=== PATIENT | female | born 1980 | race Caucasian/White ===

== ENCOUNTER 2020-04-09 06:08 | Emergency (ER) | payer MEDICAID, SELFPAY ==
[2020-04-09] VITALS (10 sets, daily range): BP systolic 92–107; BP diastolic 62–73; PULSE 105–108; RESP 16–26; TEMP 36.7; O2SAT 95–98; BMI 34.2
--- NOTE | 2020-04-09 06:16 | W.ED.GENADLT ---
HPI - General Adult General: Chief complaint: Chest Pain Stated complaint: chest pain Time Seen by Provider: 04/09/20 06:16 History of Present Illness: HPI narrative: 40-year-old female presents emergency room with complaint of chest pain. She arrives by ambulance. Patient has a history of nonischemic cardiomyopathy cardiomyopathy with a depressed ejection fraction to 25 to 30% she had an ICD placed she is also has a history of nonsustained V. tach with QT prolongation. She usually sees Dr. Del Real. This morning she woke up around 4:56 AM with chest pressure and pain she gave herself an albuterol treatment because she was feeling very short of breath. She states she had no relief after the albuterol treatment she also took some aspirin. When she seen in the emergency room she had a rapid shallow breathing that increases her chest pain with deep inspiration. She denies fever sweats or chills she is not had any increased cough or productive cough. She does state pain is better with shallow breaths. She was seen yesterday in [place] for near syncopal episode and states she had a chest x-ray and CT of her head both of which she was told were normal. She denies any other pain she is not had any abdominal pain no bowel or bladder issues. Associated symptoms: Reports chest pain and dyspnea; Deny malaise, nausea, rash or vomiting Review of Systems Const: Denies: fever(s), chills, body aches, change in appetite, fatigue or malaise ENMT: Denies: throat pain, ear or mastoid pain, nasal discharge or nasal congestion Card: Reports: chest pain and dyspnea on exertion; Denies: edema or orthopnea Resp: Reports: dyspnea and pain on inspiration; Denies: productive cough or non-productive cough GI: Denies: abdominal pain, nausea, vomiting, hematemesis, coffee ground emesis, diarrhea, constipation, bloating, hematochezia or melena : Denies: flank pain, difficulty voiding, dysuria, urinary frequency or urinary urgency Skin/Breast: Denies: rash or pruritus PFS ED PFSH: Medical History (Updated 04/09/20 @ 09:26 by Atul Crockett DO) Asthma Cardiomyopathy Heart failure Pacemaker cardiomyopathy Surgical History (Updated 04/09/20 @ 06:43 by Atul Crockett DO) H/O section S/P cholecystectomy Family History Other CAD (coronary artery disease) Diabetes Social History Smoking and tobacco status: current every day smoker cigarettes Packs smoked per day: 0.5 Alcohol intake: current Alcohol intake frequency: holidays/special occasions only Physical Exam Const: COMMON NORMALS: no acute distress GENERAL APPEARANCE: cooperative and comfortable ORIENTATION/CONSCIOUSNESS: Yes awake, Yes oriented to person, Yes oriented to place and Yes oriented to time HENMT: COMMON NORMALS: normocephalic, atraumatic, hearing grossly normal bilaterally, external ears normal, EAC's normal, TM's normal bilaterally, Normal nasal mucous membranes and turbinates present, moist oral mucous membranes and oropharynx normal HEAD & SCALP: normocephalic and atraumatic NOSE: Normal nasal mucous membranes and turbinates present EXTERNAL EAR: Yes external ears normal EXTERNAL AUDITORY CANAL: EAC's normal TYMPANIC MEMBRANE: TM's normal bilaterally Eye: COMMON NORMALS: Equal, round and reactive pupils present, EOMs intact bilaterally, conjunctivae normal and no scleral icterus CONJUNCTIVA: Yes conjunctivae normal PUPIL: Yes Equal, round and reactive pupils present Neck/C-Spine: COMMON NORMALS: full ROM, no lymphadenopathy, supple and no JVD Lymph: LYMPHATIC: no lymphadenopathy noted and no lymphedema noted Resp: COMMON NORMALS: normal respiratory effort, No retractions, No use of accessory muscles and clear to auscultation bilaterally AUSCULTATION: clear to auscultation bilaterally Cardio: COMMON NORMALS: no JVD, regular rate, regular rhythm and No murmurs present (Cardio) RATE: regular rate RHYTHM: regular rhythm GI: COMMON NORMALS: Soft to palpation and No hepatosplenomegaly present AUSCULTATION: Yes normoactive bowel sounds PALPATION: Yes Soft to palpation, No Tenderness to palpation present (GI), No Guarding due to palpation present (GI) and Yes No hepatosplenomegaly present Extremity: COMMON NORMALS: normal to inspection, capillary refill normal, no clubbing, cyanosis or edema, no calf tenderness and no pedal edema Neuro: SENSORIUM/ORIENTATION: Yes oriented to person, Yes oriented to place and Yes oriented to time Skin: COMMON NORMALS: no rashes or lesions noted GENERAL SKIN EXAM: no rashes or lesions noted Course Vital Signs: Vital signs: Vital Signs Temperature 98.0 F 04/09/20 06:10 Pulse Rate 105 H 04/09/20 09:40 Respiratory Rate 17 04/09/20 09:40 Blood Pressure 107/73 04/09/20 09:40 Pulse Oximetry 98 04/09/20 09:40 MDM - General Adult MDM Narrative: Medical decision making narrative: Chest x-ray shows pneumonia her sats are good we will go ahead and treat with outpatient antibiotics return if has any worsening symptoms. Lab Data: Labs: Lab Results 04/09/20 04/09/20 04/09/20 Range/Units 06:12 06:12 06:12 WBC 12.0 H (4.0-10.0) 10^3/ uL RBC 4.74 (4.1-5.3) 10^6/u L Hgb 14.0 (11.5-15.3) g/dL Hct 43.5 (37.0-47.0) % MCV 91.8 (81-99) fL MCH 29.5 (28.0-34.0) pg MCHC 32.2 (30.0-36.0) g/dL RDW 13.6 (12.1-15.1) % Plt Count 314 (130-400) 10^3/c mm MPV 9.9 (7.4-10.4) fL Neut % (Auto) 61.6 % Lymph % (Auto) 31.6 % [place] % (Auto) 5.1 % Eos % (Auto) 1.1 % Baso % (Auto) 0.3 % Neut # (Auto) 7.4 (1.8-7.7) 10^3/u L Lymph # (Auto) 3.8 (0.8-4.8) 10^3/u L [place] # (Auto) 0.6 (0.2-0.9) 10^3/u L Eos # (Auto) 0.1 (0.0-0.8) 10^3/u L Baso # (Auto) 0.0 (0.0-0.1) 10^3/u L Nucleated RBC % (a uto) 0 % Nucleated RBCs # 0.0 /100WBC Specimen Type Sample Site ABG pH (7.35-7.45) ABG pCO2 (35-45) mmHg ABG pO2 (80.0-100.0) mmH g ABG HCO3 (22-26) mmol/L ABG Base Excess (-2.0-2.0) mmol/ L Kevin Test Hematocrit (37-47) % O2 Delivery Device Family Program Specialist ID Sodium 137 (136-145) mmol/L Potassium 4.1 (3.5-5.1) mmol/L Chloride 99 (98-107) mmol/L Carbon Dioxide 22 (22-29) mmol/L Anion Gap 20.1 H (5-19) BUN 10 (6-20) mg/dL Creatinine 0.5 (0.5-0.9) mg/dL GFR Calculation 136.0 H (90-130) mL/min Glucose 116 H (65-115) mg/dL Calculated Osmolal ity 281 L (285-295) mOsm/k g Lactate (0.5-2.2) mmol/L Calcium 9.9 (8.5-10.5) mg/dL Total Bilirubin 0.2 (0.15-1.2) mg/dL AST 20 (0-32) U/L ALT 18 (0-33) U/L Alkaline Phosphata se 94 (35-105) IU/L Troponin T Baselin e 9 (0-10) ng/mL Troponin T 120 Min [place] (0-10) ng/mL Delta Troponin T (0-10) ABS# C-Reactive Protein 5.1 H (0.0-4.9) mg/L NT-Pro-B Natriuret Pep 578 H (0-125) pg/mL Total Protein 7.4 (6.6-8.7) g/dL Albumin 4.1 (3.5-5.2) g/dL Globulin 3.3 (1.3-4.6) g/dL Lipase 39 (13-60) U/L Urine Color (Yellow) Urine Appearance (CLEAR) Urine pH (5-7) Ur Specific Gravit y (1.005-1.030) Urine Protein (Negative) Urine Glucose (UA) (Normal) Urine Ketones (Negative) Urine Blood (Negative) Urine Nitrate (Negative) Urine Bilirubin (NEGATIVE) Urine Urobilinogen (Negative) mg/dL Ur Leukocyte Roseann ase (Negative) 05/15/20 05/15/20 05/15/20 Range/Units 06:40 06:55 08:24 WBC (4.0-10.0) 10^3/ uL RBC (4.1-5.3) 10^6/u L Hgb (11.5-15.3) g/dL Hct (37.0-47.0) % MCV (81-99) fL MCH (28.0-34.0) pg MCHC (30.0-36.0) g/dL RDW (12.1-15.1) % Plt Count (130-400) 10^3/c mm MPV (7.4-10.4) fL Neut % (Auto) % Lymph % (Auto) % [place] % (Auto) % Eos % (Auto) % Baso % (Auto) % Neut # (Auto) (1.8-7.7) 10^3/u L Lymph # (Auto) (0.8-4.8) 10^3/u L [place] # (Auto) (0.2-0.9) 10^3/u L Eos # (Auto) (0.0-0.8) 10^3/u L Baso # (Auto) (0.0-0.1) 10^3/u L Nucleated RBC % (a uto) % Nucleated RBCs # /100WBC Specimen Type Arterial Sample Site Brachial, right ABG pH 7.40 (7.35-7.45) ABG pCO2 35.2 (35-45) mmHg ABG pO2 78.5 L (80.0-100.0) mmH g ABG HCO3 21.5 L (22-26) mmol/L ABG Base Excess -2.8 L (-2.0-2.0) mmol/ L Kevin Test N/a Hematocrit 38.4 (37-47) % O2 Delivery Device Room air Family Program Specialist ID [email or web address] Sodium (136-145) mmol/L Potassium (3.5-5.1) mmol/L Chloride (98-107) mmol/L Carbon Dioxide (22-29) mmol/L Anion Gap (5-19) BUN (6-20) mg/dL Creatinine (0.5-0.9) mg/dL GFR Calculation (90-130) mL/min Glucose (65-115) mg/dL Calculated Osmolal ity (285-295) mOsm/k g Lactate 2.5 H (0.5-2.2) mmol/L Calcium (8.5-10.5) mg/dL Total Bilirubin (0.15-1.2) mg/dL AST (0-32) U/L ALT (0-33) U/L Alkaline Phosphata se (35-105) IU/L Troponin T Baselin e (0-10) ng/mL Troponin T 120 Min [place] 6.65 (0-10) ng/mL Delta Troponin T -2.35 L (0-10) ABS# C-Reactive Protein (0.0-4.9) mg/L NT-Pro-B Natriuret Pep (0-125) pg/mL Total Protein (6.6-8.7) g/dL Albumin (3.5-5.2) g/dL Globulin (1.3-4.6) g/dL Lipase (13-60) U/L Urine Color (Yellow) Urine Appearance (CLEAR) Urine pH (5-7) Ur Specific Gravit y (1.005-1.030) Urine Protein (Negative) Urine Glucose (UA) (Normal) Urine Ketones (Negative) Urine Blood (Negative) Urine Nitrate (Negative) Urine Bilirubin (NEGATIVE) Urine Urobilinogen (Negative) mg/dL Ur Leukocyte Roseann ase (Negative) 04/09/20 Range/Units 08:40 WBC (4.0-10.0) 10^3/ uL RBC (4.1-5.3) 10^6/u L Hgb (11.5-15.3) g/dL Hct (37.0-47.0) % MCV (81-99) fL MCH (28.0-34.0) pg MCHC (30.0-36.0) g/dL RDW (12.1-15.1) % Plt Count (130-400) 10^3/c mm MPV (7.4-10.4) fL Neut % (Auto) % Lymph % (Auto) % [place] % (Auto) % Eos % (Auto) % Baso % (Auto) % Neut # (Auto) (1.8-7.7) 10^3/u L Lymph # (Auto) (0.8-4.8) 10^3/u L [place] # (Auto) (0.2-0.9) 10^3/u L Eos # (Auto) (0.0-0.8) 10^3/u L Baso # (Auto) (0.0-0.1) 10^3/u L Nucleated RBC % (a uto) % Nucleated RBCs # /100WBC Specimen Type Sample Site ABG pH (7.35-7.45) ABG pCO2 (35-45) mmHg ABG pO2 (80.0-100.0) mmH g ABG HCO3 (22-26) mmol/L ABG Base Excess (-2.0-2.0) mmol/ L Kevin Test Hematocrit (37-47) % O2 Delivery Device Family Program Specialist ID Sodium (136-145) mmol/L Potassium (3.5-5.1) mmol/L Chloride (98-107) mmol/L Carbon Dioxide (22-29) mmol/L Anion Gap (5-19) BUN (6-20) mg/dL Creatinine (0.5-0.9) mg/dL GFR Calculation (90-130) mL/min Glucose (65-115) mg/dL Calculated Osmolal ity (285-295) mOsm/k g Lactate (0.5-2.2) mmol/L Calcium (8.5-10.5) mg/dL Total Bilirubin (0.15-1.2) mg/dL AST (0-32) U/L ALT (0-33) U/L Alkaline Phosphata se (35-105) IU/L Troponin T Baselin e (0-10) ng/mL Troponin T 120 Min [place] (0-10) ng/mL Delta Troponin T (0-10) ABS# C-Reactive Protein (0.0-4.9) mg/L NT-Pro-B Natriuret Pep (0-125) pg/mL Total Protein (6.6-8.7) g/dL Albumin (3.5-5.2) g/dL Globulin (1.3-4.6) g/dL Lipase (13-60) U/L Urine Color Yellow (Yellow) Urine Appearance Clear (CLEAR) Urine pH 5 (5-7) Ur Specific Gravit y 1.020 (1.005-1.030) Urine Protein Neg (Negative) Urine Glucose (UA) Norm (Normal) Urine Ketones Negative (Negative) Urine Blood Neg (Negative) Urine Nitrate Negative (Negative) Urine Bilirubin Neg (NEGATIVE) Urine Urobilinogen Norm (Negative) mg/dL Ur Leukocyte Roseann ase Negative (Negative) Discharge Plan Discharge Patient Disposition: Home, Self-Care Clinical Impression: Pneumonia Condition: Stable Prescriptions: New Levaquin 750 mg tablet 750 mg PO DAILY 10 Days Qty: 10 RF: 0 hydrocodone-acetaminophen 5-325 mg tablet 1 tab PO Q6H PRN (Reason: pain) Qty: 10 RF: 0 No Action furosemide 40 mg tablet 40 mg PO DAILY RF: 0 cholecalciferol (vitamin D3) PO RF: 0 potassium gluconate 595 mg (99 mg) tablet 1,785 mg PO DAILY RF: 0 metoprolol succinate 25 mg tablet extended release 24 hr 12.5 mg PO DAILY Qty: 15 RF: 3 furosemide 40 mg tablet 40 mg PO BID Qty: 60 RF: 3 potassium chloride 20 mEq tablet extended release 20 meq PO DAILY Qty: 30 RF: 3 Discharge Orders: Discharge Order (Routine); Ordered 04/09/20 Ordered By: Atul Crockett Discharge Diet: Advance as tolerated Discharge Activity: Increase activity as tolerated Activity Restrictions/Additional Instructions: Follow-up with your doctor within 1 week. Return to the emergency room if worsens. Discharge Date/Time: 04/09/20 09:40 Coding Level of Care Code ED [employer] [facility] Exam Comprehensive
--- NOTE | 2020-04-09 06:17 | PC.NURSE ---
EKG done at 0615 and shown to ER doctor
--- NOTE | 2020-04-09 06:45 | XR_ITS ---
WS: [id number] PORTABLE CHEST HISTORY: dyspnea/cough COMPARISON: None available. Single lead LEFT subclavian pacer. Focal opacification at the RIGHT lung base. Otherwise lungs are clear. No pleural effusion or pneumot horax. Cardiac size: Normal. Mediastinum/Aorta: Mild fullness at the RIGHT hilum. Aorta is negative. No osseous abnormality seen. XR/XR chest 1V portable [id number] IMPRESSION: 1. RIGHT lower lobe opacifications likely pneumonia. Recommend follow-up to re solution. Chest radiograph recommended in 2-3 weeks. 2. Mild fullness at the RIGHT hilum may be postinflammatory and associated wit h the RIGHT lower lobe pneumonia.
--- NOTE | 2020-04-09 06:45 | ECG_ITS ---
Measurements Intervals [place] Rate: 105 P: 50 [place]: 177 QRS: 34 QRSD: 105 T: 79 QT: 379 QTc: 501 SINUS TACHYCARDIA POSSIBLE LEFT VENTRICULAR HYPERTROPHY [VOLTAGE CRITERIA PLUS LAE OR QRS WIDENING] NONSPECIFIC T-WAVE ABNORMALITY No previous ECG available for comparison Electronically Signed On 04-09-2020 13:05:42 CDT by Liam Baker M.D. [id number]
[2020-04-09 06:51] LABS: ABG PCO2 35.2 mmHg (35-45); Arterial Blood Gas Hematocrit 38.4 % (37-47); Base Excess ABG -2.8 mmol/L (-2.0-2.0); Blood Gas Sample Site Brachial, right; Blood Gas Sample Type Arterial; HCO3 ABG 21.5 mmol/L (22-26); Oxygen Device ROOM AIR; PO2 ABG 78.5 mmHg (80.0-100.0)
[2020-04-09 07:04] LABS: Basophils % 0.3 %; Eosinophils # 0.1 10^3/uL (0.0-0.8); Eosinophils % 1.1 %; Hematocrit 43.5 % (37.0-47.0); Lymphocytes # 3.8 10^3/uL (0.8-4.8); Lymphocytes % 31.6 %; Mean Corpuscular HGB Conc 32.2 g/dL (30.0-36.0); Mean Corpuscular Hemoglobin 29.5 pg (28.0-34.0); Mean Corpuscular Volume 91.8 fL (81-99); Mean Platelet Volume 9.9 fL (7.4-10.4); Monocytes # 0.6 10^3/uL (0.2-0.9); Monocytes % 5.1 %; Neutrophils # 7.4 10^3/uL (1.8-7.7); Neutrophils % 61.6 %; Nucleated Red Blood Cells % 0 %; Platelet Count 314 10^3/cmm (130-400); Red Blood Count 4.74 10^6/uL (4.1-5.3); Red Cell Distribution Width 13.6 % (12.1-15.1)
[2020-04-09 07:14] LABS: Lactate (Lactic Acid level) 2.5 mmol/L (0.5-2.2)
[2020-04-09 07:18] LABS: Troponin(5th) Baseline 9 ng/mL (0-10)
[2020-04-09 07:26] LABS: Alanine Aminotransferase 18 U/L (0-33); Albumin Level 4.1 g/dL (3.5-5.2); Alkaline Phosphatase 94 IU/L (35-105); Anion Gap 20.1 (5-19); Aspartate Amino Transferase 20 U/L (0-32); Blood Urea Nitrogen 10 mg/dL (6-20); C Reactive Protein 5.1 mg/L (0.0-4.9); Calcium 9.9 mg/dL (8.5-10.5); Carbon Dioxide 22 mmol/L (22-29); Chloride 99 mmol/L (98-107); Globulin 3.3 g/dL (1.3-4.6); Glucose 116 mg/dL (65-115); Lipase 39 U/L (13-60); NT Pro B Type Natriuretic Pept 578 pg/mL (0-125); Osmolality Calculated 281 mOsm/kg (285-295); Potassium 4.1 mmol/L (3.5-5.1); Sodium 137 mmol/L (136-145); Total Bilirubin 0.2 mg/dL (0.15-1.2); Total Protein 7.4 g/dL (6.6-8.7)
[2020-04-09] MEDS: ondansetron 2 mg/ML SDV 2 mL 4 MG IVP (08:07)
[2020-04-09] MEDS: morphine 4 mg/mL SDV 1 mL IVP (08:07)
[2020-04-09] MEDS: FUROsemide 10 mg/mL SDV 4mL 20 MG IVP (08:07)
[2020-04-09 08:49] LABS: Add Urine Microscopic? NO
[2020-04-09 08:55] LABS: Bilirubin Urine Neg (NEGATIVE); Blood Urine Neg (Negative); Glucose Urine UA Norm (Normal); Ketones Urine Negative (Negative); Leukocyte Esterase Urine Negative (Negative); Nitrate Urine Negative (Negative); Protein Urine Neg (Negative); Urine Appearance Clear (CLEAR); Urine Color Yellow (Yellow); Urobilinogen Urine Norm (Negative); pH Urine 5 (5-7)
[2020-04-09 08:56] LABS: Troponin 5 2HR 6.65 ng/mL (0-10)
[2020-04-09 09:01] LABS: Troponin 5 2HR Delta -2.35 ABS# (0-10)
== END 2020-04-09 09:40 | disposition home or self-care (01) ==
PROVIDERS: Emergency Provider Family Medicine
DX: J18.9 Pneumonia, unspecified organism (principal); Z95.0 Presence of cardiac pacemaker; F17.210 Nicotine dependence, cigarettes, uncomplicated
CPT/HCPCS: 12345; 36415; 36600; 71045; 80053; 81003; 82803; 83605; 83690; 83880; 84484; 85025; 86140; 93005; 96374; 96375; 99283; A9270; J1940; J2270; J2405

== ENCOUNTER 2020-04-10 08:32 | Inpatient (IN) | payer MEDICAID, SELFPAY ==
[2020-04-10] VITALS (18 sets, daily range): BP systolic 82–115; BP diastolic 64–88; PULSE 106–117; RESP 14–29; TEMP 36.5–37; O2SAT 88–99; BMI 34.2
--- NOTE | 2020-04-10 08:44 | CTR_ITS ---
PROCEDURE INFORMATION: Exam: CT Angiography Chest With Contrast Exam date and time: 04/10/2020 9:02 AM Age: 40 years old Clinical indication: Chest pain; Prior surgery; Surgery date: 6+ months; Surgery type: Pacemaker, gb; Additional info: Dyspnea chest pain TECHNIQUE: Imaging protocol: Computed tomographic angiography of the chest with intravenous contrast. 3D rendering: MIP and/or 3D reconstructed images were created by the technologist. Radiation optimization: All CT scans at this facility use at least one of these dose optimization techniques: automated exposure control; mA and/or kV adjustment per patient size (includes targeted exams where dose is matched to clinical indication); or iterative reconstruction. Contrast material: OMNI 350; Contrast volume: 95 ml; Contrast route: LT AC; COMPARISON: NM XR chest 1V portable [id number] 04/09/2020 7:11 AM RADIATION DOSE METRICS: Total DLP: 598.02 mGy-cm FINDINGS: Tubes, catheters and devices: AICD with associated beam hardening artifact. Pulmonary arteries: No pulmonary embolus in the opacified pulmonary arteries. Enlargement of the main pulmonary artery, measuring 5.1 cm in transverse dimension. Aorta: Normal caliber of the unopacified thoracic aorta. Lungs: Interstitial prominence. Bilateral airspace disease, disproportionately localized in the right middle lobe, lingula, left lower lobe. Pleural space: No significant pleural effusion. Heart: Cardiomegaly. Lymph nodes: Mildly enlarged lymph nodes including 2.3 x 1.4 by 1.3 cm AP window, 2.4 by 1.8 by 1.8 cm left para-aortic, and 2.1 by 1.9 by 1.0 cm right hilar lymph nodes. Upper abdomen: Fatty infiltration of the liver. Enlarged spleen measuring 12.4 cm in length. Bones/joints: Mild scoliosis and marginal osteophytes. CT/CT angio chest PE protcl [id number] IMPRESSION: 1. No pulmonary embolus in the opacified pulmonary arteries. Enlargement of the main pulmonary artery, measuring 5.1 cm in transverse dimension. 2. Interstitial prominence and bilateral airspace disease. 3. Additional findings as described above. Radiation Dose CTDIVOL = (mGy): DLP = 598.02 (mGy-cm)
--- NOTE | 2020-04-10 08:45 | ECG_ITS ---
Measurements Intervals [place] Rate: 115 P: [place]: 0 QRS: 42 QRSD: 102 T: 79 QT: 347 QTc: 482 SINUS TACHYCARDIA POSSIBLE LEFT VENTRICULAR HYPERTROPHY NONSPECIFIC T-WAVE ABNORMALITY Compared to ECG 04/09/2020 06:22:07 T-wave abnormality still present Electronically Signed On 04-11-2020 9:37:59 CDT by Deena Brown M.D. [id number]
--- NOTE | 2020-04-10 08:51 | W.ED.CHESTPA ---
HPI - Chest Pain General: Chief Complaint: Chest Pain Stated Complaint: cp/sob Time Seen by Provider: 04/10/20 08:43 History of Present Illness: HPI narrative: 40-year-old female who was seen yesterday with pleuritic chest pain was found to have a pneumonia was started on Levaquin.. She has a history of prolonged QT and has an ICD. She returns today with continued chest discomfort worse with inspiration she is now in atrial tachycardia/flutter with a heart rate of 113. She was given ceftriaxone and Zithromax yesterday and started on Levaquin she has taken 1 dose of Levaquin. Pain is still worse with deep inspiration better with shallow inspirations she did not get much relief from the Carrie. MD complaint: chest pain Pertinent past history: other (Prolonged QT) Onset (ago): day(s) Timing of current episode: episodic, constant and still present Onset: during rest Pain radiation: none Severity: severe Quality: sharp Relieving factors: remaining still Exacerbating factors: inspiration Context: recent illness Associated symptoms: Reports diaphoresis and dyspnea; Deny abdominal pain, nausea or vomiting Review of Systems Const: Reports: diaphoresis ENMT: Denies: throat pain, ear or mastoid pain, nasal discharge or nasal congestion Card: Denies: chest pain, edema, dyspnea on exertion or orthopnea Resp: Reports: dyspnea GI: Denies: abdominal pain, nausea, vomiting, hematemesis, coffee ground emesis, diarrhea, constipation, bloating, hematochezia or melena : Denies: flank pain, difficulty voiding, dysuria, urinary frequency or urinary urgency Skin/Breast: Denies: rash or pruritus PFSH ED PFSH: Medical History Abnormal nuclear stress test Asthma Atypical chest pain Cardiomyopathy Heart failure Intermittent atrial fibrillation Nonsustained ventricular tachycardia Pacemaker cardiomyopathy Surgical History AICD (automatic cardioverter/defibrillator) present H/O section S/P cholecystectomy Family History Other CAD (coronary artery disease) Diabetes Social History Smoking and tobacco status: current every day smoker cigarettes Packs smoked per day: 0.5 Alcohol intake: current Alcohol intake frequency: holidays/special occasions only Household members: spouse and children Housing: House Marital status: Physical Exam Const: COMMON NORMALS: no acute distress GENERAL APPEARANCE: cooperative and comfortable ORIENTATION/CONSCIOUSNESS: Yes awake, Yes oriented to person, Yes oriented to place and Yes oriented to time HENMT: COMMON NORMALS: normocephalic, atraumatic, hearing grossly normal bilaterally, external ears normal, EAC's normal, TM's normal bilaterally, Normal nasal mucous membranes and turbinates present, moist oral mucous membranes and oropharynx normal HEAD & SCALP: normocephalic and atraumatic NOSE: Normal nasal mucous membranes and turbinates present EXTERNAL EAR: Yes external ears normal EXTERNAL AUDITORY CANAL: EAC's normal TYMPANIC MEMBRANE: TM's normal bilaterally Eye: COMMON NORMALS: Equal, round and reactive pupils present, EOMs intact bilaterally, conjunctivae normal and no scleral icterus CONJUNCTIVA: Yes conjunctivae normal PUPIL: Yes Equal, round and reactive pupils present Neck/C-Spine: COMMON NORMALS: full ROM, no lymphadenopathy, supple and no JVD Lymph: LYMPHATIC: no lymphadenopathy noted and no lymphedema noted Resp: COMMON NORMALS: normal respiratory effort, No retractions, No use of accessory muscles and clear to auscultation bilaterally AUSCULTATION: clear to auscultation bilaterally Cardio: COMMON NORMALS: no JVD, regular rate, regular rhythm and No murmurs present (Cardio) RATE: regular rate RHYTHM: regular rhythm GI: COMMON NORMALS: Soft to palpation and No hepatosplenomegaly present AUSCULTATION: Yes normoactive bowel sounds PALPATION: Yes Soft to palpation, No Tenderness to palpation present (GI), No Guarding due to palpation present (GI) and Yes No hepatosplenomegaly present Extremity: COMMON NORMALS: normal to inspection, capillary refill normal, no clubbing, cyanosis or edema, no calf tenderness and no pedal edema Neuro: SENSORIUM/ORIENTATION: Yes oriented to person, Yes oriented to place and Yes oriented to time Skin: COMMON NORMALS: no rashes or lesions noted GENERAL SKIN EXAM: no rashes or lesions noted Course Vital Signs: Vital signs: Vital Signs Temperature 98.7 F 04/12/20 18:37 Pulse Rate 101 H 04/12/20 18:37 Respiratory Rate 21 H 04/12/20 18:37 Blood Pressure 117/74 04/12/20 18:37 Pulse Oximetry 92 04/12/20 18:37 MDM - Chest Pain MDM Narrative: Medical decision making narrative: Patient does have pneumonia not previously seen on chest x-ray will go ahead and admit started on IV antibiotics. She has significant pleuritic chest pain there is no evidence of empyema on her CT discussed with the hospitalist orders are written. Lab Data: Labs: Lab Results 04/10/20 04/10/20 04/10/20 Range/Units 08:58 08:58 08:58 WBC 10.7 H (4.0-10.0) 10^3/ uL RBC 4.11 (4.1-5.3) 10^6/u L Hgb 12.1 (11.5-15.3) g/dL Hct 38.1 (37.0-47.0) % MCV 92.7 (81-99) fL MCH 29.4 (28.0-34.0) pg MCHC 31.8 (30.0-36.0) g/dL RDW 13.6 (12.1-15.1) % Plt Count 243 (130-400) 10^3/c mm MPV 9.7 (7.4-10.4) fL Neut % (Auto) 73.8 % Lymph % (Auto) 16.6 % [place] % (Auto) 8.2 % Eos % (Auto) 0.6 % Baso % (Auto) 0.4 % Neut # (Auto) 7.9 H (1.8-7.7) 10^3/u L Lymph # (Auto) 1.8 (0.8-4.8) 10^3/u L [place] # (Auto) 0.9 (0.2-0.9) 10^3/u L Eos # (Auto) 0.1 (0.0-0.8) 10^3/u L Baso # (Auto) 0.0 (0.0-0.1) 10^3/u L Nucleated RBC % (a uto) 0 % Nucleated RBCs # 0.0 /100WBC Sodium 134 L (136-145) mmol/L Potassium 4.4 (3.5-5.1) mmol/L Chloride 99 (98-107) mmol/L Carbon Dioxide 22 (22-29) mmol/L Anion Gap 17.4 (5-19) BUN 8 (6-20) mg/dL Creatinine 0.5 (0.5-0.9) mg/dL GFR Calculation 136.0 H (90-130) mL/min Glucose 140 H (65-115) mg/dL Estimat Average Gl ucose Hemoglobin A1c (4.0-6.0) % Calculated Osmolal ity 276 L (285-295) mOsm/k g Calcium 9.6 (8.5-10.5) mg/dL Total Bilirubin 1.3 H (0.15-1.2) mg/dL AST 74 H (0-32) U/L ALT 116 H (0-33) U/L Alkaline Phosphata se 114 H (35-105) IU/L Troponin T Baselin e 8 (0-10) ng/mL Troponin T 120 Min [place] (0-10) ng/mL Delta Troponin T (0-10) ABS# Total Protein 7.7 (6.6-8.7) g/dL Albumin 3.9 (3.5-5.2) g/dL Globulin 3.8 (1.3-4.6) g/dL 04/10/20 04/10/20 Range/Units 08:58 11:03 WBC (4.0-10.0) 10^3/ uL RBC (4.1-5.3) 10^6/u L Hgb (11.5-15.3) g/dL Hct (37.0-47.0) % MCV (81-99) fL MCH (28.0-34.0) pg MCHC (30.0-36.0) g/dL RDW (12.1-15.1) % Plt Count (130-400) 10^3/c mm MPV (7.4-10.4) fL Neut % (Auto) % Lymph % (Auto) % [place] % (Auto) % Eos % (Auto) % Baso % (Auto) % Neut # (Auto) (1.8-7.7) 10^3/u L Lymph # (Auto) (0.8-4.8) 10^3/u L [place] # (Auto) (0.2-0.9) 10^3/u L Eos # (Auto) (0.0-0.8) 10^3/u L Baso # (Auto) (0.0-0.1) 10^3/u L Nucleated RBC % (a uto) % Nucleated RBCs # /100WBC Sodium (136-145) mmol/L Potassium (3.5-5.1) mmol/L Chloride (98-107) mmol/L Carbon Dioxide (22-29) mmol/L Anion Gap (5-19) BUN (6-20) mg/dL Creatinine (0.5-0.9) mg/dL GFR Calculation (90-130) mL/min Glucose (65-115) mg/dL Estimat Average Gl ucose 143 Hemoglobin A1c 6.6 H (4.0-6.0) % Calculated Osmolal ity (285-295) mOsm/k g Calcium (8.5-10.5) mg/dL Total Bilirubin (0.15-1.2) mg/dL AST (0-32) U/L ALT (0-33) U/L Alkaline Phosphata se (35-105) IU/L Troponin T Baselin e (0-10) ng/mL Troponin T 120 Min [place] 7.14 (0-10) ng/mL Delta Troponin T -0.86 L (0-10) ABS# Total Protein (6.6-8.7) g/dL Albumin (3.5-5.2) g/dL Globulin (1.3-4.6) g/dL Discharge Plan Discharge Patient Disposition: Admitted As Inpatient Admit Provider: Emiliano Parisi Clinical Impression: Pneumonia, cardiomyopathy, Systolic and diastolic CHF, acute on chronic, AICD (automatic cardioverter/defibrillator) present, Type 2 diabetes mellitus Condition: Stable Discharge Orders: Discharge Order (Routine); Ordered 04/12/20 Ordered By: Emiliano Parisi Referrals: Ag Alva [Referring] - 04/21/20 9:40 am (Follow-up) Gilbert Lehman MD [Physician] - 2 weeks Discharge Diet: Cardiac Discharge Activity: Resume usual activity Patient Instructions: Metoprolol (By mouth), Lisinopril (By mouth), Metformin (By mouth), Atorvastatin (By mouth), Mirtazapine (By mouth), Magnesium (By mouth), Apixaban (By mouth) Additional Instructions: Multiple new medications have been started for you including lisinopril, Lopressor, Eliquis, statin, metformin. Please follow-up with Dr. Lehman in 2 weeks. Appointment has been made for you with a new primary care provider. Please follow-up with a primary care provider. As discussed it is very important that you maintain your lifestyle modification and try to quit smoking as soon as possible. Interventions: ED Discharge Assessment Last Done: 04/10/20 11:59 ED Charges Last Done: 04/10/20 11:59 Discharge Date/Time: 04/10/20 12:44 Coding Level of Care Code ED [place] for Chg Fwd Exam Comprehensive
[2020-04-10] MEDS: morphine 4 mg/mL SDV 1 mL IVP (09:02)
[2020-04-10] MEDS: ondansetron 2 mg/ML SDV 2 mL 4 MG IVP ×2 (09:02→13:51)
[2020-04-10] MEDS: sodium chloride 0.9% 1,000 ML 999 ML IV (09:04)
[2020-04-10 09:08] LABS: Basophils % 0.4 %; Eosinophils # 0.1 10^3/uL (0.0-0.8); Eosinophils % 0.6 %; Hematocrit 38.1 % (37.0-47.0); Hemoglobin 12.1 g/dL (11.5-15.3); Lymphocytes # 1.8 10^3/uL (0.8-4.8); Lymphocytes % 16.6 %; Mean Corpuscular HGB Conc 31.8 g/dL (30.0-36.0); Mean Corpuscular Hemoglobin 29.4 pg (28.0-34.0); Mean Corpuscular Volume 92.7 fL (81-99); Mean Platelet Volume 9.7 fL (7.4-10.4); Monocytes # 0.9 10^3/uL (0.2-0.9); Monocytes % 8.2 %; Neutrophils # 7.9 10^3/uL (1.8-7.7); Neutrophils % 73.8 %; Nucleated Red Blood Cells % 0 %; Platelet Count 243 10^3/cmm (130-400); Red Blood Count 4.11 10^6/uL (4.1-5.3); Red Cell Distribution Width 13.6 % (12.1-15.1); White Blood Count 10.7 10^3/uL (4.0-10.0)
[2020-04-10 09:17] LABS: Alanine Aminotransferase 116 U/L (0-33); Albumin Level 3.9 g/dL (3.5-5.2); Alkaline Phosphatase 114 IU/L (35-105); Anion Gap 17.4 (5-19); Aspartate Amino Transferase 74 U/L (0-32); Blood Urea Nitrogen 8 mg/dL (6-20); Calcium 9.6 mg/dL (8.5-10.5); Carbon Dioxide 22 mmol/L (22-29); Chloride 99 mmol/L (98-107); Globulin 3.8 g/dL (1.3-4.6); Glucose 140 mg/dL (65-115); Osmolality Calculated 276 mOsm/kg (285-295); Potassium 4.4 mmol/L (3.5-5.1); Sodium 134 mmol/L (136-145); Total Bilirubin 1.3 mg/dL (0.15-1.2); Total Protein 7.7 g/dL (6.6-8.7)
[2020-04-10 09:19] LABS: Troponin(5th) Baseline 8 ng/mL (0-10)
[2020-04-10] MEDS: iohexol 350 mg/mL 100 mL Btl IV (09:22)
--- NOTE | 2020-04-10 09:23 | USR_ITS ---
PROCEDURE INFORMATION: Exam: US Abdomen Limited, Right Upper Quadrant Exam date and time: 04/10/2020 10:43 AM Age: 40 years old Clinical indication: Abdominal pain; Prior surgery; Surgery type: Cholecystectomy; Additional info: Elevated t bili TECHNIQUE: Imaging protocol: Real-time ultrasound of the abdomen with image documentation. Examination was focused on the right upper quadrant. COMPARISON: No relevant prior studies available. FINDINGS: Liver: Fatty infiltration of the liver. Gallbladder: Status post cholecystectomy. Common bile duct: Mild intrahepatic ductal dilatation. Normal caliber of the incompletely visualized common bile duct measuring 5 mm in diameter. Pancreas: No acute sonographic abnormality in the incompletely visualized pancreas, which is partially obscured by bowel gas. Right kidney: Normal right renal morphology. No hydronephrosis. US/US gall bladder [id number] IMPRESSION: 1. Fatty infiltration of the liver. 2. Mild intrahepatic ductal dilatation with normal caliber of the incompletely visualized common bile duct measuring 5 mm in diameter.
--- NOTE | 2020-04-10 09:43 | XRR_ITS ---
PROCEDURE INFORMATION: Exam: XR Chest, 1 View Exam date and time: 04/10/2020 9:44 AM Age: 40 years old Clinical indication: Shortness of breath; Prior surgery; Surgery date: 6+ months; Surgery type: Pacemaker, gb; Additional info: Dyspnea/cough TECHNIQUE: Imaging protocol: XR of the chest Views: 1 view. COMPARISON: CA XR chest 1V portable [id number] 04/09/2020 7:11 AM FINDINGS: Tubes, catheters and devices: AICD. Lungs: Interstitial prominence and mild basilar airspace disease. Pleural space: No significant pleural effusion. Heart/Mediastinum: Borderline cardiomegaly. Bones/joints: Mild scoliosis. When correlating with the previous study, no significant interval changes are present. XR/XR chest 1V portable [id number] IMPRESSION: Stable appearance of the chest, not significantly changed from 04/09/2020 .
[2020-04-10] MEDS: levofloxacin-dextrose 5 % 750 MG/150 ML PREMIX 100 MG IV (09:56)
--- NOTE | 2020-04-10 10:45 | ECG_ITS ---
Measurements Intervals [place] Rate: 110 P: [place]: 0 QRS: 38 QRSD: 101 T: 66 QT: 360 QTc: 488 SINUS TACHYCARDIA POSSIBLE LEFT VENTRICULAR HYPERTROPHY Compared to ECG 04/09/2020 06:22:07 Sinus tachycardia no longer present T-wave abnormality no longer present Electronically Signed On 04-10-2020 16:26:08 CDT by Deena Brown M.D. [email or web address]
[2020-04-10] MEDS: morphine 4 mg/mL SDV 1 mL 6 MG IVP (10:50)
--- NOTE | 2020-04-10 11:11 | PC.NURSE ---
EKG done at 1109 and shown to ER doctor
[2020-04-10 11:29] LABS: Troponin 5 2HR 7.14 ng/mL (0-10)
[2020-04-10 11:37] LABS: Troponin 5 2HR Delta -0.86 ABS# (0-10)
[2020-04-10] MEDS: morphine 4 mg/mL SDV 1 mL 2 MG IVP ×2 (13:54→19:25)
--- NOTE | 2020-04-10 13:57 | PC.RESP ---
Smoking Cessation information to patient.
--- NOTE | 2020-04-10 14:52 | PM.HP ---
Providers/Chief Complaint Admitting Physician: Emiliano Parisi MD Chief Complaint: cp/sob History of Present Illness Sarah Curtis is a 40 year old female with past medical history of Cardiomyopathy, EF of 35% checked 1 year ago, AICD placement for ventricular tachycardia because of prolonged QT, chronic smoker presented to the ER today complaining of central chest pain radiating to left shoulder which has been going on for last 2 days. Patient states she has been having difficulty in breathing at rest getting aggravated on lying down flat and exertion getting worse for last 1 week with acutely worse for last 2 days. Patient has also had symptoms of PND and she is getting up at night because she feels as though she is choking. She is also been complaining of dizziness on and off for last 2 days. She states her appetite is decreased and she feels nauseous. She is also complaining of central chest pain on and off radiating to left shoulder for last 2 days getting worse today morning so she presented to the ER. Patient was in the ER for similar presentation yesterday morning when she woke up because of central chest pain and not able to breathe that time she had been brought to the emergency by EMS and was treated for a possible pneumonia with levofloxacin. On examination patient was lying comfortably in bed complaining of mild shortness of breath saturating more than 97% on 2 L nasal cannula feeling anxious. She states she has been having fluttering kind of central chest pain. Due to her shoulder feeling as if her AICD is going to cough again and again. While being on child monitor she does not have any ventral type tachycardia going on. She states at baseline her heart rate usually A. fib remains between 100-120 bpm. Of note, patient has recently moved from [place] around a year ago and has not had any medical care for over a year as she did not have any insurance still a week ago when she saw Dr. Lehman in his office and was started on some of her cardiac medications. Patient denies of having any runny nose, fevers, sick contacts, recent travels, recent exposure to possible COVID-19 patient's, fall, dysuria, diarrhea, vomiting, abdominal pain, ear pain, palpitations. Review of Systems Const: Denies: fever(s), chills, body aches, change in appetite, malaise, night sweats, diaphoresis, change in sleep pattern, daytime sleepiness or snoring Eyes: Denies: change in vision, blurry vision, photophobia, eye discomfort or eye discharge ENMT: Denies: throat pain, enlarged tonsils, hoarseness, mouth pain, oral sores, dry mouth, tinnitus, nasal congestion or post nasal drip Card: Denies: chest pain, palpitations, irregular heart rhythm, edema, swelling of feet/ankles, lightheadedness, syncope, pre-syncope, dyspnea on exertion, orthopnea, leg pain with exertion or acrocyanosis Resp: Denies: dyspnea, productive cough, non-productive cough, wheezing, stridor, pain on inspiration, change in phlegm color, hemoptysis or chest congestion GI: Denies: abdominal pain, nausea, vomiting, hematemesis, coffee ground emesis, dysphagia, heartburn, diarrhea, constipation, bloating, GI cramping, change in bowel habits, pain on defecation, hematochezia or melena : Denies: flank pain, dysuria, urinary frequency, urinary urgency, urinary hesitancy, nocturia or hematuria Musc: Denies: neck pain, back pain, extremity pain, joint pain, joint swelling, joint redness, joint stiffness or limited range of motion Neuro: Denies: headache(s), numbness in extremities, weakness in extremities, sensory changes, lack of coordination, difficulty walking, frequent falls, dizziness, vertigo, confusion, Slurred speech present, difficulty communicating thoughts or seizure-like activity Psych: Denies: anxiety, depression, mood swings, panic attacks, hopelessness or irritability Endo: Denies: polyuria, polydipsia, tired all the time, cold intolerance, excessive sweating, flushing or heat intolerance Ke/Lymph: Denies: easy bruising or easy bleeding All/Imm: Denies: tongue swelling, facial swelling or acute wheezing Medications/Allergies Home Medications Medication Instructions Recorded Confirmed Last Taken Type cholecalciferol (vitamin D3) See Rx Instructions .ROUTE .COMPLEX 04/01/20 04/10/20 Unknown History furosemide 40 mg tablet 40 mg PO BID #60 tab 04/01/20 04/10/20 04/08/20 Rx metoprolol succinate 25 mg 12.5 mg PO DAILY #15 tab 04/01/20 04/10/20 04/09/20 Rx tablet,extended release 24 hr potassium chloride 20 mEq 20 meq PO DAILY #30 tab 04/01/20 04/10/20 04/08/20 Rx tablet,extended release hydrocodone-acetaminophen 1 tab PO Q6H PRN #10 tab 04/09/20 04/10/20 04/10/20 04:00 Rx levofloxacin [Levaquin] 750 mg PO DAILY 10 Days #10 tab 04/09/20 04/10/20 04/10/20 04:00 Rx Vitamin B-12 1 tab PO PRN 04/10/20 04/10/20 Unknown History leighton extract 1 tab PO PRN 04/10/20 04/10/20 Unknown History hawthorn rich See Rx Instructions .ROUTE .COMPLEX 04/10/20 04/10/20 Unknown History magnesium 1 tab PO DAILY 04/10/20 04/10/20 04/08/20 History Allergies Allergy/AdvReac Type Severity Reaction Status Date / Time NSAIDS (Non-Steroidal Allergy Unknown Verified 04/09/20 06:14 Anti-Inflamma Penicillins Allergy ADR-Blurry Verified 04/01/20 14:23 Vision PFSH Acute PFSH: Medical History (Updated 04/10/20 @ 14:55 by Emiliano Parisi MD) Asthma Cardiomyopathy Heart failure Pacemaker cardiomyopathy Surgical History (Updated 04/10/20 @ 14:55 by Emiliano Parisi MD) AICD (automatic cardioverter/defibrillator) present H/O section S/P cholecystectomy Family History Other CAD (coronary artery disease) Diabetes Social History (Updated 04/10/20 @ 15:27 by Emiliano Parisi MD) Smoking and tobacco status: current every day smoker cigarettes Packs smoked per day: 0.5 Alcohol intake: current Alcohol intake frequency: holidays/special occasions only Household members: spouse and children Housing: House Marital status: Vitals/I&O/Wt Last Vital Signs Temp 98.4 F 04/10/20 12:53 Pulse 112 H 04/10/20 12:53 Resp 20 H 04/10/20 13:54 BP 107/75 04/10/20 12:53 Pulse Ox 97 04/10/20 12:53 04/09/20 04/10/20 04/10/20 22:59 06:59 14:59 Intake Total 1150 / 1150 Balance 1150 / 1150 Weight last 48 hrs Weight 102.058 kg Physical Exam Narrative: EXAM NARRATIVE: General: No acute distress, AO x3, anxious HEENT: PERRLA, pupils bilaterally equal and reactive Chest: Normal vesicular breath sounds, JVD raised, bilateral lower zone fine crackles, equal good air entry bilaterally CVS: S1-S2 regular, no murmurs, no gallops, no rubs, ICD site healthy, tachycardia present Abdomen: Soft, nontender, no organomegaly, bowel sounds present Neuro: No focal deficits, no facial deformity, AO x3, power 5/5 in all limbs Data : 04/10/20 08:58 04/10/20 08:58 Micro: Microbiology 04/10/20 09:32 Blood Culture - Preliminary Blood SPECIMEN COLLECTED 04/10/20 08:58 Blood Culture - Preliminary Blood SPECIMEN COLLECTED A&P Assessment and plan (1) cardiomyopathy: Status: Acute (2) Chest pain: Status: Acute (3) Systolic and diastolic CHF, acute on chronic: Status: Acute (4) Liver function abnormality: Status: Acute (5) Shortness of breath: Status: Acute (6) AICD (automatic cardioverter/defibrillator) present: Status: Acute Additional A&P Information 40-year-old female with past medical history of cardiomyopathy, chronic smoker, AICD placement for VT because of prolonged QT presented to the hospital because of central chest pain along with dizziness and shortness of breath which is been getting worse for last 1 week. Shortness of breath: Most likely because of decompensated chronic systolic heart failure: We do not have any echocardiogram in system. Patient states her last echocardiogram was almost a year ago. Check echocardiogram, proBNP, procalcitonin, sputum culture, bacterial antigen, MRSA swab. We will start patient on IV Lasix 40 mg twice daily. Telemetry monitoring. Increase patient's metoprolol from 12.5 twice daily 25 mg twice daily. If patient tolerates well with a blood pressure we will plan to start her on DAGO inhibitor's during this admission. Daily weights. Strict input output charting. Interrogate AICD.Patient has [employer] AICD. Chances of pneumonia are low. Patient has mild leukocytosis, states she has not been febrile, saturating okay on room air, no cough. Patient was started on levofloxacin yesterday in the ER. CTA done in the ER today suggestive of bilateral airspace disease most likely consistent with pulmonary edema. As stated above check procalcitonin. Stop levofloxacin as patient's LFTs are little worse as compared to yesterday, but will start patient on azithromycin and ceftriaxone for community-acquired pneumonia. If patient remains afebrile we will plan to discontinue antibiotics in next 48 hours. Chest pain: Most likely because of acute decompensated heart failure. Given her history of chronic smoking cannot rule out unstable angina. Check troponin and cycle to 6 hours. Once patient is more euvolemic we will plan for a stress test. Liver function abnormality: Most likely because of congestive liver disease. We will monitor LFTs daily. Patient does not have any signs or symptoms of cholecystitis, cholangitis. Gallbladder ultrasound done in the ER negative for any pathology. Chronic smoker: Discussed in detail with patient regarding smoking cessation. Patient verbalizes understanding. Will use nicotine patch while in the hospital. Full code. Lovenox for DVT prophylaxis Cardiac diet/fluid restriction up to 1500 cc. We will change medical plan as per the results and clinical picture. Attestations Medical Necessity Statement*: 2 midnights because of shortness of breath/chest pain under evaluation. 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
[2020-04-10 15:46] LABS: Estmated Average Glucose 143; Hemoglobin A1C 6.6 % (4.0-6.0)
[2020-04-10 15:47] LABS: Procalcitonin 0.12 ng/mL (0-0.5); Thyroid Stimulating Hormone 4.89 uIU/mL (0.27-4.20)
[2020-04-10 15:58] LABS: Iron 56 ug/dL (37-145); Percent Saturation 20.5 % (20-50); Total Iron Binding Capacity 272 mcg/dl; Unsaturated Iron Binding 216 ug/dL (112-347)
[2020-04-10 16:30] LABS: NT Pro B Type Natriuretic Pept 1007 pg/mL (0-125); T3 Free 2.4 PG/ML (2.0-4.4)
[2020-04-10] MEDS: FUROsemide 10 mg/mL SDV 4mL 40 MG IVP (17:16)
[2020-04-10] MEDS: cefTRIAXone 1,000 MG in sodium chloride 0.9% (plus) 50 ML 100 MG IV (17:16)
[2020-04-10] MEDS: enoxaparin 40 mg/0.4 mL Syringe SUBCUT (17:16)
[2020-04-10] MEDS: metoprolol tartrate 25 mg Tablet PO (17:17)
[2020-04-10] MEDS: HYDROcodone-acetaminophen 5-325 mg Tablet 1 TAB PO (17:20)
[2020-04-10] MEDS: zolpidem 5 mg Tablet PO (20:21)
[2020-04-11] VITALS (9 sets, daily range): BP systolic 97–133; BP diastolic 76–83; PULSE 96–116; RESP 16–25; TEMP 36.7–37.1; O2SAT 91–98
[2020-04-11] MEDS: HYDROcodone-acetaminophen 5-325 mg Tablet 1 TAB PO ×4 (01:17→20:00)
[2020-04-11] MEDS: morphine 4 mg/mL SDV 1 mL 2 MG IVP ×2 (01:24→06:43)
[2020-04-11] MEDS: FUROsemide 10 mg/mL SDV 4mL 40 MG IVP ×2 (04:06→17:21)
[2020-04-11 05:00] LABS: Basophils % 0.4 %; Eosinophils # 0.2 10^3/uL (0.0-0.8); Eosinophils % 1.9 %; Hematocrit 35.6 % (37.0-47.0); Hemoglobin 11.3 g/dL (11.5-15.3); Lymphocytes # 2.5 10^3/uL (0.8-4.8); Lymphocytes % 29.8 %; Mean Corpuscular HGB Conc 31.7 g/dL (30.0-36.0); Mean Corpuscular Hemoglobin 29.9 pg (28.0-34.0); Mean Corpuscular Volume 94.2 fL (81-99); Mean Platelet Volume 10.1 fL (7.4-10.4); Monocytes # 0.7 10^3/uL (0.2-0.9); Monocytes % 7.9 %; Neutrophils % 59.5 %; Nucleated Red Blood Cells % 0 %; Platelet Count 245 10^3/cmm (130-400); Red Blood Count 3.78 10^6/uL (4.1-5.3); Red Cell Distribution Width 13.7 % (12.1-15.1); White Blood Count 8.4 10^3/uL (4.0-10.0)
[2020-04-11 05:29] LABS: Magnesium 2.1 mg/dL (1.7-2.3); Phosphorus 2.7 mg/dL (2.5-4.5)
[2020-04-11 05:30] LABS: Alanine Aminotransferase 90 U/L (0-33); Albumin Level 3.6 g/dL (3.5-5.2); Alkaline Phosphatase 121 IU/L (35-105); Anion Gap 15.8 (5-19); Aspartate Amino Transferase 50 U/L (0-32); Blood Urea Nitrogen 9 mg/dL (6-20); Calcium 9.4 mg/dL (8.5-10.5); Carbon Dioxide 23 mmol/L (22-29); Chloride 94 mmol/L (98-107); Chol HDL Ratio 6.24 mg/dL (0.0-4.40); Cholesterol 237 mg/dL (0-200); Globulin 3.6 g/dL (1.3-4.6); Glucose 138 mg/dL (65-115); HDL Cholesterol 38 mg/dL (60-100); LDL Cholesterol Calculated 124 mg/dL (50-129); LDL HDL Ratio 3.26 RATIO (0.00-3.22); Osmolality Calculated 266 mOsm/kg (285-295); Potassium 3.8 mmol/L (3.5-5.1); Sodium 129 mmol/L (136-145); Total Bilirubin 0.8 mg/dL (0.15-1.2); Total Protein 7.2 g/dL (6.6-8.7); Triglycerides 374 mg/dL (0-150); VLDL Cholestrol Calculation 75 mg/dL (0-30)
--- NOTE | 2020-04-11 07:00 | USCV_ITS ---
Jordy Pathak Sarah Age: 40 Gender: F : 1980 Exam Date: 04/11/2020 14:29 Ordering Phys: Emiliano Parisi MD Technologist: Bozena Nava [place] [facility] [place]: Cardiomyopathy BP: 105 / 83 HR: Rhythm: Sinus Technical Quality: Fair MEASUREMENTS (Male / Female) Normal Values 2D ECHO LV Diastolic Diameter PLAX 7.4 cm 4.2 - 5.9 / 3.9 - 5.3 cm LV Systolic Diameter PLAX 7.1 cm LV Chamber Size 5.1 cm IVS Diastolic Thickness 1.2 cm 0.6 - 1.0 / 0.6 - 0.9 cm IVS Systolic Thickness 0.9 cm LVPW Diastolic Thickness 1.3 cm 0.6 - 1.0 / 0.6 - 0.9 cm LVPW Systolic Thickness 1.5 cm RV Chamber Size 3.1 cm LVOT Diameter 2.1 cm LV Ejection Fraction 2D Teich 7.7 % LA Diameter 6.0 cm LA Width 6.0 cm LA Height 7.6 cm RA Width 3.6 cm RA Height 5.2 cm Aorta at Sinotubular Diameter 2.4 cm M-MODE LV Diastolic Diameter MM 7.8 cm 4.2 - 5.9 / 3.9 - 5.3 cm LV Systolic Diameter MM 7.0 cm LV Ejection Fraction MM Teich 21.6 % IVS Diastolic Thickness MM 1.3 cm 0.6 - 1.0 / 0.6 - 0.9 cm IVS Systolic Thickness MM 0.9 cm LVPW Diastolic Thickness MM 1.7 cm 0.6 - 1.0 / 0.6 - 0.9 cm LVPW Systolic Thickness MM 1.8 cm RV Diastolic Diameter MM 1.2 cm Aortic Annulus Diameter 2.7 cm LA Ao Ratio MM 2.2 MV E Point Septal Separation 3.2 cm DOPPLER AV Peak Velocity 95.0 cm/s LVOT Peak Velocity 74.0 cm/s AV Area Cont Eq vti 2.9 cm squared AV Area Cont Eq pk 2.6 cm squared MV Area PHT 4.3 cm squared MV E' Velocity 117.0 cm/s TR Peak Velocity 301.0 cm/s TR Peak Gradient 36.2 mmHg TR Mean Velocity 199.5 cm/s TR Mean Gradient 16.9 mmHg TR Velocity Time Integral 70.7 cm TV Peak E Velocity 83.0 cm/s Right Atrial Pressure 15.0 mmHg Pulmonary Artery Systolic Pressu 51.2 mmHg PV Peak Velocity 79.0 cm/s RV Acceleration Time 0.1 s RV Ejection Time 0.2 s RV AcT/ET 0.3 FINDINGS Left Ventricle Markedly dilated left ventricular cavity (LVDd=7.4 cm). Eccentric left ventricular hypertrophy. Severely decreased left ventricular systolic function. Left ventricular ejection fraction is estimated at 20 %. Severe global hypokinesis. Abnormal septal motion consistent with conduction abnormality. Right Ventricle Normal right ventricular size and systolic function. Right ventricular systolic pressure 51.2 mmHg. ICD wire visualized in the right ventricle. Right Atrium Right atrium not well visualized. Right atrial pressure estimated at 15 mmHg. Left Atrium Moderately increased left atrial size. Mitral Valve Moderately thickened mitral valve. No mitral valve stenosis. Moderate-severe mitral valve regurgitation. Aortic Valve Aortic valve not well visualized. Probably tricuspid aortic valve. No aortic valve stenosis. No aortic valve regurgitation. Tricuspid Valve Structurally normal tricuspid valve. Moderate to severe tricuspid valve regurgitation. Pulmonic Valve Structurally normal pulmonic valve. Mild to moderate pulmonary valve regurgitation Pericardium No pericardial effusion. Dilated inferior vena cava. Aorta Normal-sized aortic root. CONCLUSIONS 1. Markedly dilated left ventricular cavity. Eccentric left ventricular hypertrophy. Severely decreased left ventricular systolic function. Left ventricular ejection fraction is estimated at 20 %. Severe global hypokinesis. Abnormal septal motion consistent with conduction abnormality. 2. Normal right ventricular size and systolic function. 3. Moderately increased left atrial size. 4. Moderate-severe mitral valve regurgitation. 5. Moderate to severe tricuspid valve regurgitation. 6. No prior similar studies to compare. Deena Brown MD (Electronically Signed) Final Date: 12 Apr 2020 14:34 S
[2020-04-11] MEDS: metoprolol tartrate 25 mg Tablet PO (08:52)
[2020-04-11] MEDS: azithromycin 250 mg Tablet 500 MG PO (08:52)
--- NOTE | 2020-04-11 10:14 | P.PN_ITS ---
Subjective Subjective: Interval history: No acute events overnight. Denies of having any nausea, vomiting. States today she is feeling a lot better than yesterday. States chest pain is not there anymore but complains of occasional pain in her left shoulder. Denies of having any palpitations. States she still thinks as of her ICD fires on and off. Telemetry stable without any VPCs or runs of VT. Labs and vitals noted. Vitals/I&O/Wt Last Vital Signs Temp 98.0 F 04/11/20 07:56 Pulse 110 H 04/11/20 08:11 Resp 18 04/11/20 08:11 BP 119/80 04/11/20 07:56 Pulse Ox 95 04/11/20 08:11 04/10/20 04/11/20 04/11/20 22:59 06:59 14:59 Intake Total 530 / 1680 490 / 2170 360 / 360 Output Total 750 / 750 900 / 1650 400 / 400 Balance -220 / 930 -410 / 520 -40 / -40 Weight last 48 hrs Weight 104.871 kg Weight 102.058 kg Physical Exam Narrative: EXAM NARRATIVE: General: No acute distress, AO x3, anxious HEENT: PERRLA, pupils bilaterally equal and reactive Chest: Normal vesicular breath sounds, JVD raised, bilateral lower zone fine crackles, equal good air entry bilaterally CVS: S1-S2 regular, no murmurs, no gallops, no rubs, ICD site healthy, tachycardia present Abdomen: Soft, nontender, no organomegaly, bowel sounds present Neuro: No focal deficits, no facial deformity, AO x3, power 5/5 in all limbs Data : 04/11/20 04:10 04/11/20 04:10 Micro: Microbiology 04/10/20 09:32 Blood Culture - Preliminary Blood NEGATIVE TO DATE 04/11/20 05:17 Gram Stain - Final Sputum - Expectorated Sputum 04/10/20 08:58 Blood Culture - Preliminary Blood NEGATIVE TO DATE 04/10/20 16:00 Bacterial Antigens - Final Urine,Voided 04/10/20 16:00 Legionella Urinary Antigen - Final Urine,Clean Catch A&P Assessment and plan (1) cardiomyopathy: Status: Acute (2) Chest pain: Status: Acute (3) Systolic and diastolic CHF, acute on chronic: Status: Acute (4) Liver function abnormality: Status: Acute (5) Shortness of breath: Status: Acute (6) AICD (automatic cardioverter/defibrillator) present: Status: Acute (7) Dyslipidemia: Status: Acute (8) Type 2 diabetes mellitus: Status: Acute Additional A&P Information 40-year-old female with past medical history of cardiomyopathy, chronic smoker, AICD placement for VT because of prolonged QT presented to the ospital because of central chest pain along with dizziness and shortness of breath which is been getting worse for last 1 week. Shortness of breath: Most likely because of decompensated chronic systolic heart failure: We do not have any echocardiogram in system. Patient states her last echocardiogram was almost a year ago. proBNP elevated procalcitonin negative, bacterial antigen negative Continue with Lasix IV milligrams 40 mg twice daily for 1 more day. Increase metoprolol to 50 mg twice daily. If patient tolerates well with a blood pressure we will plan to start her on DAGO inhibitor's during this admission. Daily weights. Strict input output charting. AICD interrogated. Results noted. Chances of pneumonia are low. Patient has mild leukocytosis, states she has not been febrile, saturating okay on room air, no cough. Patient was started on levofloxacin yesterday in the ER. CTA done in the ER today suggestive of bilateral airspace disease most likely consistent with pulmonary edema. We will discontinue azithromycin after today as patient would have finished 3- day course. Continue ceftriaxone for 2 more days to finish a course of community-acquired pneumonia. Chest pain: Most likely because of acute decompensated heart failure. Troponin cycle negative. Given history of smoking, elevated lipid panel and mild type 2 diabetes mellitus chances of unstable angina are very high. Will do stress test tomorrow morning. N.p.o. after midnight. Start patient on aspirin 81 mg daily. Dyslipidemia: Start patient on atorvastatin 40 mg daily. We will monitor LFTs. Liver function abnormality: Most likely because of congestive liver disease. Getting better. We will monitor LFTs daily. Patient does not have any signs or symptoms of cholecystitis, cholangitis. Gallbladder ultrasound done in the ER negative for any pathology. Chronic smoker: Discussed in detail with patient regarding smoking cessation. Patient verbalizes understanding. Patient is refusing nicotine patch. Full code. Lovenox for DVT prophylaxis Cardiac diet/fluid restriction up to 1500 cc. We will change medical plan as per the results and clinical picture. Attestations Medical Necessity Statement*: Decompensated heart failure, cardiomyopathy. Coding Level of Care Code Acute Supplier Relationship Director for Chg Fwd Diagnoses cardiomyopathy O90.3 Chest pain R07.9 Systolic and diastolic CHF, acute on chronic I50.43 Liver function abnormality R94.5 Shortness of breath R06.02 AICD (automatic cardioverter/defibrillator) present Z95.810 Dyslipidemia E78.5 Type 2 diabetes mellitus E11.9
[2020-04-11] MEDS: aspirin 81 mg EC Tablet PO (10:42)
[2020-04-11 14:36] LABS: Iron 42 ug/dL (37-145); Percent Saturation 15.4 % (20-50); Total Iron Binding Capacity 271 mcg/dl; Unsaturated Iron Binding 229 ug/dL (112-347)
--- NOTE | 2020-04-11 16:05 | PC.NURSE ---
XANAX PATIENT REFUSED XANAX DOSE. SHE STATED, I DON'T WANT PSYCH DRUGS. I TOOK CHANTIX AND IT MADE ME SUICIDAL SO I DON'T WANT ANYTHING LIKE IT. THIS NURSE TRIED TO EXPLAIN THE DIFFERENCE BETWEEN THE MEDICATIONS AND WHY THE MEDICATION WAS ORDERED, TO HELP WITH HER HEART RATE, BUT THE PATIENT REFUSED. THE PATIENT ALSO STATED THAT HER PHYSICIAN IN [place] PLACED HER ON LISINOPRIL TO HELP WITH HER HEART RATE, THAT METOPROLOL DOES NOT HELP. THIS NURSE TRIED TO EXPLAIN THAT LISINOPRIL DOES NOT WORK IN THAT WAY, BUT THE PATIENT WAS ADAMANT THAT THIS WAS THE MEDICATION. THIS NURSE REQUESTED FROM DR. MALONEY TO OBTAIN RECORDS FROM PATIENT'S PREVIOUS GRAVEL SCREENER.
[2020-04-11] MEDS: cefTRIAXone 1,000 MG in sodium chloride 0.9% (plus) 50 ML 100 MG IV (17:19)
[2020-04-11] MEDS: enoxaparin 40 mg/0.4 mL Syringe SUBCUT (17:20)
[2020-04-11] MEDS: metoprolol tartrate 50 mg Tablet PO (17:21)
[2020-04-11] MEDS: bisacodyl 5 mg Tablet 10 MG PO (20:00)
[2020-04-11] MEDS: atorvastatin 40 mg Tablet PO (21:56)
[2020-04-11] MEDS: zolpidem 5 mg Tablet PO (21:56)
[2020-04-12 04:00] VITALS: BP 121/80; PULSE 96; RESP 16; TEMP 37.1; O2SAT 95
[2020-04-12] MEDS: FUROsemide 10 mg/mL SDV 4mL 40 MG IVP (04:41)
[2020-04-12] MEDS: HYDROcodone-acetaminophen 5-325 mg Tablet 1 TAB PO (04:43)
[2020-04-12] MEDS: ondansetron 2 mg/ML SDV 2 mL 4 MG IVP (05:29)
[2020-04-12 06:12] LABS: Estmated Average Glucose 146; Hemoglobin A1C 6.7 % (4.0-6.0)
[2020-04-12 06:23] LABS: Alanine Aminotransferase 78 U/L (0-33); Albumin Level 3.8 g/dL (3.5-5.2); Alkaline Phosphatase 113 IU/L (35-105); Anion Gap 17.7 (5-19); Aspartate Amino Transferase 53 U/L (0-32); Blood Urea Nitrogen 11 mg/dL (6-20); Calcium 8.9 mg/dL (8.5-10.5); Carbon Dioxide 25 mmol/L (22-29); Chloride 99 mmol/L (98-107); Globulin 3.3 g/dL (1.3-4.6); Glomerular Filtration Rate 110.2 mL/min (90-130); Glucose 118 mg/dL (65-115); Osmolality Calculated 283 mOsm/kg (285-295); Potassium 3.7 mmol/L (3.5-5.1); Sodium 138 mmol/L (136-145); Total Bilirubin 0.6 mg/dL (0.15-1.2); Total Protein 7.1 g/dL (6.6-8.7)
--- NOTE | 2020-04-12 06:40 | ECG_ITS ---
NAME OF STUDY: LEXISCAN SESTAMIBI STRESS TEST INDICATION: Unstable Angina PROCEDURE: At the baseline, the EKG revealed normal sinus rhythm with short NC interval. No significant ST-T changes. The baseline blood pressure was 163/99 mm Hg with a heart rate of 99 beats/min. Lexiscan was infused over a period of 20 seconds. A total of 0.4 milligrams of Lexiscan was infused. The stress phase was continued for a total of 5 minutes. Heart rate at the end of the stress phase was 97 with a blood pressure 98/63. The EKG at the peak infusion revealed no significant changes. Sestamibi was injected 20 seconds after the Lexiscan infusion. Blood pressure at the end of the recovery phase was 101/78 with a heart rate of 99 per minute. CONCLUSION: 1. No significant EKG changes with the] LexiScan infusion 2. No LexiScan induced chest pain or cardiac arrhythmia 3. Normal blood pressure and heart rate response 4. Sestamibi/sestamibi perfusion scan pending; see separate report. Electronically Signed On 04-14-2020 11:50:19 CDT by Fina Topete M.D. [id number]
--- NOTE | 2020-04-12 07:30 | PC.NURSE ---
to nuc med for stress test
--- NOTE | 2020-04-12 07:54 | SUR.PREOP ---
Patient reports no pain or discomfort prior to the start of the procedure.
[2020-04-12] MEDS: regadenoson 0.4 Mg/5 ml Syringe IVP (07:55)
[2020-04-12 08:00] VITALS: BP 111/75; PULSE 97; RESP 18; TEMP 36.8; O2SAT 95
[2020-04-12 08:05] VITALS: BP 101/77; PULSE 96
[2020-04-12] MEDS: metoprolol tartrate 50 mg Tablet PO ×2 (09:55→17:14)
[2020-04-12] MEDS: azithromycin 250 mg Tablet 500 MG PO (09:55)
[2020-04-12] MEDS: aspirin 81 mg EC Tablet PO (09:55)
[2020-04-12 11:20] VITALS: BP 111/77; PULSE 97; RESP 18; TEMP 36.8
--- NOTE | 2020-04-12 12:28 | P.PN_ITS ---
Subjective Subjective: Interval history: No acute events overnight. On examination patient states she is feeling a lot better today. Patient is emotional after knowing that she has elevated cholesterol and repeated A1c. As per the RN patient did have episodes of crying/emotional outburst yesterday after talking at family. On talking patient denies of having any nausea, vomiting, chest pain, dizziness, palpitations. Patient was seen today post stress test. Vitals/I&O/Wt Last Vital Signs Temp 98.2 F 04/12/20 11:20 Pulse 97 04/12/20 11:20 Resp 18 04/12/20 11:20 BP 111/77 04/12/20 11:20 Pulse Ox 95 04/12/20 08:00 04/11/20 04/12/20 04/12/20 22:59 06:59 14:59 Intake Total 240 / 840 480 / 1320 360 / 360 Output Total 1000 / 1800 600 / 2400 900 / 900 Balance -760 / -960 -120 / -1080 -540 / -540 Weight last 48 hrs Weight 102.285 kg Weight 104.871 kg Physical Exam Narrative: EXAM NARRATIVE: General: No acute distress, AO x3, anxious HEENT: PERRLA, pupils bilaterally equal and reactive Chest: Normal vesicular breath sounds, JVD raised, bilateral lower zone fine crackles, equal good air entry bilaterally CVS: S1-S2 regular, S3 gallop, no murmurs, no rubs, ICD site healthy, tachycardia present Abdomen: Soft, nontender, no organomegaly, bowel sounds present Neuro: No focal deficits, no facial deformity, AO x3, power 5/5 in all limbs Data : 04/11/20 04:10 04/12/20 04:58 Micro: Microbiology 04/10/20 16:00 MRSA Culture - Final Nose 04/10/20 09:32 Blood Culture - Preliminary Blood NEGATIVE TO DATE 04/11/20 05:17 Gram Stain - Final Sputum - Expectorated Sputum 04/10/20 08:58 Blood Culture - Preliminary Blood NEGATIVE TO DATE A&P Assessment and plan (1) cardiomyopathy: Status: Acute (2) Chest pain: Status: Acute (3) Systolic and diastolic CHF, acute on chronic: Status: Acute (4) Liver function abnormality: Status: Acute (5) Shortness of breath: Status: Acute (6) AICD (automatic cardioverter/defibrillator) present: Status: Acute (7) Dyslipidemia: Status: Acute (8) Type 2 diabetes mellitus: Status: Acute Additional A&P Information 40-year-old female with past medical history of cardiomyopathy, chronic smoker, AICD placement for VT because of prolonged QT presented to the hospital because of central chest pain along with dizziness and shortness of breath which is been getting worse for last 1 week. Shortness of breath: Most likely because of decompensated chronic systolic heart failure: We do not have any echocardiogram in system. Patient states her last echocardiogram was almost a year ago. proBNP elevated procalcitonin negative, bacterial antigen negative Patient overall 1 L negative. Feeling a lot better today. We will switch Lasix from IV to oral 40 mg orally twice daily. With metoprolol 50 mg twice daily. If patient's blood pressure and BMP remained stable tomorrow we will add her on low-dose lisinopril. Daily weights. Strict input output charting. AICD interrogated. Results noted. Chances of pneumonia are low. Patient has mild leukocytosis, states she has not been febrile, saturating okay on room air, no cough. Patient was started on levofloxacin yesterday in the ER. CTA done in the ER today suggestive of bilateral airspace disease most likely consistent with pulmonary edema. Last day of antibiotics today. Chest pain: Most likely because of acute decompensated heart failure but given her history of smoking with newly diagnosed dyslipidemia and type 2 diabetes mellitus cannot rule out unstable angina. Troponins have remained negative during this admission. Patient is post stress test today morning. Will await results. Continue with aspirin 81 mg daily. Dyslipidemia: Atorvastatin 40 mg daily. We will monitor LFTs. Type 2 diabetes mellitus: A1c 6.7. Discussed in detail with patient regarding need of strict lifestyle modifications. We will start patient on metformin 500 mg twice daily. Patient is agreeable to the medication lifestyle modifications. Emotional instability: Patient is emotional talking about chronic heart failure and new diagnosis of dyslipidemia type 2 diabetes mellitus. It seems patient at baseline is mildly depressed. She denies of having suicidal or homicidal ideations. We will start patient on Remeron 15 mg daily. Liver function abnormality: Most likely because of congestive liver disease. Stable. We will monitor LFTs daily. Patient does not have any signs or symptoms of cholecystitis, cholangitis. Gallbladder ultrasound done in the ER negative for any pathology. Chronic smoker: Discussed in detail with patient regarding smoking cessation. Patient verbalizes understanding. Patient is refusing nicotine patch. Full code. Lovenox for DVT prophylaxis Cardiac diet/fluid restriction up to 1500 cc. Attestations Medical Necessity Statement*: Congestive heart failure, chest pain under evaluation Time Spent in Patient Care: Greater than 35 minutes Coding Level of Care Code Acute Studio Operations Manager for g Fwd Diagnoses cardiomyopathy O90.3 Chest pain R07.9 Systolic and diastolic CHF, acute on chronic I50.43 Liver function abnormality R94.5 Shortness of breath R06.02 AICD (automatic cardioverter/defibrillator) present Z95.810 Dyslipidemia E78.5 Type 2 diabetes mellitus E11.9
--- NOTE | 2020-04-12 14:50 | PC.NURSE ---
VTACH Pt had a 21 beat run of VTACH in the tele-monitor. Checked on pt and she is on her right side laying. I asked her how is she feeling. She stated she felt like she is suffocating for a short period. She has mild inspiratory and expiratory wheezing. BP-117/74, spo2 of 92-96% on room air. notified of the episode. Received orders for EKG, Mag and phosphorus levels. Will monitor.
[2020-04-12 15:12] VITALS: BP 117/74; PULSE 101; RESP 21; TEMP 37.1; O2SAT 92
--- NOTE | 2020-04-12 15:19 | ECG_ITS ---
Measurements Intervals Elmer Rate: 94 P: 56 WY: 167 QRS: 38 QRSD: 113 T: 74 QT: 417 QTc: 524 SINUS RHYTHM MODERATE INTRAVENTRICULAR CONDUCTION DELAY [110+ ms QRS DURATION] VOLTAGE CRITERIA FOR LVH NONSPECIFIC T-WAVE ABNORMALITY PROLONGED QT INTERVAL Compared to ECG 04/10/2020 11:15:42 Intraventricular conduction delay now present T-wave abnormality now present Prolonged QT interval now present Sinus tachycardia no longer present Electronically Signed On 04-12-2020 19:40:00 CDT by Deena Brown M.D. [id number]
--- NOTE | 2020-04-12 15:30 | PC.NURSE ---
Pt is sitting up and texting on the phone denies any pain at this time.
[2020-04-12 16:18] LABS: Magnesium 2.1 mg/dL (1.7-2.3); Phosphorus 3.4 mg/dL (2.5-4.5)
[2020-04-12] MEDS: enoxaparin 40 mg/0.4 mL Syringe SUBCUT (17:14)
[2020-04-12] MEDS: cefTRIAXone 1,000 MG in sodium chloride 0.9% (plus) 50 ML 100 MG IV (17:14)
[2020-04-12] MEDS: FUROsemide 40 mg Tablet PO (17:14)
--- NOTE | 2020-04-12 17:50 | PM.CONSULT ---
Providers/Reason For Consult Consulting Physican/Specialty*: Omid Topete MD/cardiology Reason for Consult*: Patient with cardiomyopathy and abnormal myocardial perfusion imaging Attending Physician: Emiliano Parisi MD History of Present Illness History of Present Illness Sarah Curtis is a 40 year old female who is admitted to the hospital with complaints of chest pain and shortness of breath. Patient is known to have cardiomyopathy, ventricular arrhythmia and ICD implantation. Patient apparently has been doing okay up until the day of admission when she woke up with tight feeling in the chest associated shortness of breath. The tightness was in the mid substernal area, radiated to the left shoulder. The intensity of the pain was moderate to severe. The chest pain made it persisted for 30 hours or so. According the patient, she was given pain medications and sublingual nitro which apparently did not relieve the pain. Finally she coughed up some purulent sputum and afterwards, the chest pain subsided. As of now she has no chest pain. However she has left shoulder pain with inspiration. Every time when she take a breath, she has some discomfort in the left shoulder that may radiate to the left arm. She has no other associated symptoms. She has been having some episodes of palpitation. No dizziness or syncopal episodes. She has not had any ICD discharges. She had an episode of nonsustained medical tachycardia, on the telemetry, since hospital admission. She had a myocardial perfusion imaging today which revealed a mostly areas of fixed defects with very small areas of reversible defects, suggestive of mostly myocardial scarring with possible subtle areas of no-infarction ischemia. Details are as mentioned below. Patient has no previous history for coronary disease or myocardial infarction. She is diagnosed with a cardiomyopathy after her last childbirth. She had a total of 8 pregnancies. The ICD was implanted after a year of last childbirth. Since I said implantation, she had a 203 discharges. She had several episodes of overdrive pacing. Has not had any recent ICD discharges. Based on the ICD interrogation report, she had several episodes of nonsustained ventricular tachycardias. Also has been having episodes of slow ventricular tachycardia/atrial arrhythmias Review of Systems Narrative: CONSTITUTIONAL: No fever or chills. EYES: No blurring of vision or other visual disturbances lately. ENT: Had an episode of dizziness/vertigo 3 days ago. CARDIOVASCULAR: As mentioned above. RESPIRATORY: History of reactive airway disease GASTROINTESTINAL: No hematemesis or melena. GENITOURINARY: No dysuria or hematuria. INTEGUMENTARY: No skin rashes or history of skin cancer. NEURO: No transient ischemic attacks or amaurosis. PSYCHIATRIC: No history of psychosis or major depression. HEMATOLOGIC: No bleeding disorders or significant anemia. ENDOCRINE: Hemoglobin A1c was found to be elevated recently, 6.5. MUSCULOSKELETAL: No recent joint pain or swelling. ALLERGY/IMMUNOLOGY: As mentioned above. Meds/Allergies Home Medications and Allergies Home Medications Medication Instructions Recorded Confirmed Last Taken Type cholecalciferol (vitamin D3) See Rx Instructions .ROUTE .COMPLEX 04/01/20 04/10/20 Unknown History furosemide 40 mg tablet 40 mg PO BID #60 tab 04/01/20 04/10/20 04/08/20 Rx metoprolol succinate 25 mg 12.5 mg PO DAILY #15 tab 04/01/20 04/10/20 04/09/20 Rx tablet,extended release 24 hr potassium chloride 20 mEq 20 meq PO DAILY #30 tab 04/01/20 04/10/20 04/08/20 Rx tablet,extended release hydrocodone-acetaminophen 1 tab PO Q6H PRN #10 tab 04/09/20 04/10/20 04/10/20 04:00 Rx levofloxacin [Levaquin] 750 mg PO DAILY 10 Days #10 tab 04/09/20 04/10/20 04/10/20 04:00 Rx Vitamin B-12 1 tab PO PRN 04/10/20 04/10/20 Unknown History leighton extract 1 tab PO PRN 04/10/20 04/10/20 Unknown History hawthorn rich See Rx Instructions .ROUTE .COMPLEX 04/10/20 04/10/20 Unknown History magnesium 1 tab PO DAILY 04/10/20 04/10/20 04/08/20 History Allergies Allergy/AdvReac Type Severity Reaction Status Date / Time NSAIDS (Non-Steroidal Allergy Unknown Verified 04/09/20 06:14 Anti-Inflamma Penicillins Allergy ADR-Blurry Verified 04/01/20 14:23 Vision Current Medications Current Medications Generic Name Dose Route Start Last Admin Trade Name Freq PRN Reason Stop Dose Admin Hydrocodone Bitart/Acetaminophen 1 tab 04/10/20 15:47 04/12/20 04:43 Enterprise 5-325 Mg PO 1 tab Q6H PRN Administration pain Albuterol Sulfate 2.5 mg 04/10/20 16:47 04/11/20 08:10 Albuterol INHALATION 2.5 mg Q4H.RESPIRATORY PRN Administration WHEEZING Aspirin 81 mg 04/11/20 10:15 04/12/20 09:55 Aspirin Ec PO 81 mg DAILY UNA Administration Atorvastatin Calcium 40 mg 04/11/20 21:00 04/11/20 21:56 Lipitor PO 40 mg BEDTIME UNA Administration Bisacodyl 10 mg 04/10/20 15:47 04/11/20 20:00 Dulcolax PO 10 mg DAILY PRN Administration CONSTIPATION Enoxaparin Sodium 40 mg 04/10/20 16:15 04/12/20 17:14 Lovenox SUBCUT 40 mg Q24H UNA Administration Furosemide 40 mg 04/12/20 16:00 04/12/20 17:14 Lasix PO 40 mg BID@08,16 UNA Administration Metoprolol Tartrate 50 mg 04/11/20 18:00 04/12/20 17:14 Lopressor PO 50 mg BID UNA Administration Morphine Sulfate 2 mg 04/10/20 18:00 04/11/20 06:43 Morphine IVP 2 mg Q4H PRN Administration SEVERE PAIN PFSH Acute PFSH: Medical History Abnormal nuclear stress test Asthma Atypical chest pain Cardiomyopathy Heart failure Intermittent atrial fibrillation Nonsustained ventricular tachycardia Pacemaker cardiomyopathy Surgical History AICD (automatic cardioverter/defibrillator) present H/O section S/P cholecystectomy Family History Other CAD (coronary artery disease) Diabetes Social History Smoking and tobacco status: current every day smoker cigarettes Packs smoked per day: 0.5 Alcohol intake: current Alcohol intake frequency: holidays/special occasions only Household members: spouse and children Housing: House Marital status: Vitals/I&O/Wt Last Vital Signs Temp 98.7 F 04/12/20 15:12 Pulse 101 H 04/12/20 15:12 Resp 21 H 04/12/20 15:12 BP 117/74 04/12/20 15:12 Pulse Ox 92 04/12/20 15:12 04/12/20 04/12/20 04/12/20 06:59 14:59 22:59 Intake Total 480 / 1370 600 / 600 118 / 718 Output Total 600 / 2400 1800 / 1800 400 / 2200 Balance -120 / -1030 -1200 / -1200 -282 / -1482 Weight last 48 hrs Weight 225 lb 8 oz Weight 231 lb 3.2 oz Physical Exam Narrative: EXAM NARRATIVE: GENERAL: The patient is alert and oriented times three. Not in any acute distress. HEENT: No significant pallor, icterus or lymphadenopathy. The pupils are reactant to light. Oral cavity: There are no mucous membrane lesions. Funduscopic examination: The fundus is not visualized NECK: Trachea appears to be central. No masses noted. No JVD or thyromegaly appreciated. No carotid bruit. RESPIRATORY: Chest is symmetrical. No intercostals muscle retraction or any accessory muscle activation. There is no chest wall tenderness. Breath sounds are heard bilaterally. No rales or rhonchi heard. No evidence of any consolidation. BREASTS: Deferred. HEART: The first and second hearts as are normal. S3 or S4. Short systolic murmur in the mitral area. No diastolic murmurs. No pericardial rub. ABDOMEN: No vessel pulsations or distention. No tenderness. No organomegaly appreciated. No abdominal bruit. Bowel sounds are normally heard. : Deferred. RECTAL: Deferred. LYMPHATIC: No lymphadenopathy noted in the neck or groin. EXTREMITIES: No edema or cyanosis. No clubbing. The pulses are symmetrical bilaterally. The radial, femoral, dorsalis pedis and the posterior tibial pulses are palpated and found to be in good volume and amplitude. MUSCULOSKELETAL: No acute joint deformities or swelling SKIN: There are no significant scars or skin rash noted. NEUROPSYCHIATRIC: The patient is alert and oriented x3. Appears to be in a good mood. The higher functions are grossly within normal limits. No tremors or rigidity noted. Data Micro: Micro: Microbiology 04/11/20 05:17 Gram Stain - Final Sputum - Expector ated Sputum Sputum Culture - P reliminary 04/10/20 16:00 MRSA Culture - Fin al Nose Imaging^: Echo: My impression: Echocardiogram from 04/11/2020 1. Markedly dilated left ventricular cavity. Eccentric left ventricular hypertrophy. Severely decreased left ventricular systolic function. Left ventricular ejection fraction is estimated at 20 %. Severe global hypokinesis. Abnormal septal motion consistent with conduction abnormality. 2. Normal right ventricular size and systolic function. 3. Moderately increased left atrial size. 4. Moderate-severe mitral valve regurgitation. 5. Moderate to severe tricuspid valve regurgitation. 6. No prior similar studies to compare. Myocardial perfusion imaging: My impression: 1. Myocardial perfusion imaging revealing moderately large areas of persistent decreased tracer uptake in the inferior, inferolateral and anterolateral regions, with subtle areas of reversibility, suggestive of myocardial scarring with possible no-infarction ischemia in the distribution of the right coronary artery and circumflex artery. 2. Diminished LV ejection fraction of 34%. 3. Multiple wall motion abnormality is as mentioned above. 4. Markedly dilated LV cavity with an end systolic volume of 238 mL No similar previous studies are available for comparison A&P Assessment and plan (1) Abnormal nuclear stress test: The myocardial perfusion imaging revealed mostly scarring with a very small areas of no-infarction ischemia. There is no evidence of myocardial injury, based on the troponin T. Since the patient has no chest pain and also since the age of ischemia is very small, she may not require a cardiac catheterization at this time. If she has recurrence of chest pain, this needs to be considered. This was discussed in detail with the patient which she understood well. Patient also expressed a desire not to undergo any invasive procedures at this time. She is wanting to go home and see her state archivist Dr. Lehman to discuss about further management Status: Acute (2) Atypical chest pain: The chest pain is very atypical. Most likely is related to bronchitis/upper respiratory infection. Coronary ischemia can't be completely excluded but my clinical suspicion may be low. Status: Acute (3) cardiomyopathy: Paced and he is known to have cardiomyopathy. Her LV ejection fraction is 20% by echocardiogram. She may be continued on the current medications. Need to consider starting her on ENTRESTO, may be as an outpatient Status: Acute (4) Nonsustained ventricular tachycardia: May be started on Mag-Tab SR 84 mg 2 tabs by mouth daily. Continue on the current medications Status: Acute (5) Intermittent atrial fibrillation: In view of the patient's the high thromboembolic risk, it may be appropriate to start her on long-term oral anticoagulants, if there is no contraindications. Review of the ICD telemetry shows episodes of SVT/A. fib Status: Acute (6) AICD (automatic cardioverter/defibrillator) present: The ICD function appears to be appropriate. May continue on the current follow-up scheduled Status: Acute Additional A&P Information Patient is strongly advised to quit smoking. She seems to understand implications. May continue on the management of elevated hemoglobin A1c and cholesterol Thank you for the opportunity to evaluate this patient and make these recommendations Consult Attestations Medical Necessity Statement: Disposition as per the primary Coding Level of Care Code Acute Grinding Machine Operator Portable for Kahlilg Fwd Diagnoses Abnormal nuclear stress test R94.39 Atypical chest pain R07.89 cardiomyopathy O90.3 Nonsustained ventricular tachycardia I47.2 Intermittent atrial fibrillation I48.0 AICD (automatic cardioverter/defibrillator) present Z95.810
--- NOTE | 2020-04-12 18:00 | PC.NURSE ---
Patient stated she wants to go home and her family has been called by her and is now waiting outside the [facility] I talk to the pt and she said, she talk to mat machine operator consult and is okay she can go home and have an outpatient angiogram. I told her I have to talk to the hospitalist to let him know. She started to be upset and stated she does not want to stay and will leave AMA. Called the doctor via voalte phone and advise her to stay overnight for the new meds to be started tonight. She is still wants to leave and signed AMA form. She then talk to the doctor again in the room telephone and talk to her regarding her discharge orders this evening. Explained to her the discharge orders ff-up appointments and new meds actions, possible side effects, dosing and timing. Carol live has been provided.
--- NOTE | 2020-04-12 18:26 | PM.DCS ---
Discharge Providers Date of Admission: 04/10/20 11:39 Date of Discharge: April 12, 2020 Attending Provider at Admission: Emiliano Parisi MD Attending Provider at Discharge: Emiliano Parisi MD Consults: Cardiology: Dr. Topete Diagnoses at Discharge Discharge Diagnosis (1) Abnormal nuclear stress test: Status: Acute (2) Atypical chest pain: Status: Acute (3) cardiomyopathy: Status: Acute (4) Nonsustained ventricular tachycardia: Status: Acute (5) Intermittent atrial fibrillation: Status: Acute (6) AICD (automatic cardioverter/defibrillator) present: Status: Acute Reason for Visit Reason for Visit: Reason For Visit: cp/sob Hospital Course Discharge Summary: 40-year-old female with past medical history of cardiomyopathy, severe LV dysfunction, chronic smoker, noncompliant presented with the ER complaining of chest pain radiating to left shoulder and shortness of breath. Patient was found to be in acute decompensated heart failure as she has not been on medication for a long time. She was started on IV diuretics and Lopressor orally to maintain her heart rate. AICD was interrogated which showed intermittent A. fib for last 1 year. Because of history of smoking and chest pain ischemia cannot be ruled out so once she underwent stress test which was abnormal. Cardiology was consulted. For A. fib patient was started on Eliquis. Her medications are optimized gradually. Echocardiogram was done which showed an EF of 20% with global LV hypokinesia and LV dilation. Stress test revealed myocardial perfusion imaging revealing moderately large areas of persistent decreased tracer uptake in inferior, inferior lateral, and anterior lateral regions with subtle areas of reversibility suggesting a myocardial scarring with possible no-infarction ischemia in the distribution of the right coronary and circumflex artery with an EF of 34%. Because so many new medications were started for patient she needed further monitoring and optimization but patient was adamant on leaving home and was being uncooperative so is being discharged with medications and advised to follow-up with Dr. Del Real in 2 weeks. Patient did not have any primary care provider so a new primary care provider has been appointed. And she has an appointment on April 21 at 9:40 AM and patient has been made aware of the same. Had a long discussion with patient regarding need of proper lifestyle modification, smoking cessation. During hospitalization her blood work also revealed severely abnormal lipid panel and A1c of 6.7. She was started on statins and metformin respectively. Patient is being discharged on medications for heart failure, A. fib, newly diagnosed type 2 diabetes mellitus, newly diagnosed dyslipidemia. Patient requires further hospitalization for monitoring for at least 12 more hours but is adamant on going even after being told that it could be dangerous for her life and health so is being discharged. Physical Exam Narrative: EXAM NARRATIVE: General: No acute distress, AO x3, anxious HEENT: PERRLA, pupils bilaterally equal and reactive Chest: Normal vesicular breath sounds, JVD raised, bilateral lower zone fine crackles, equal good air entry bilaterally CVS: S1-S2 regular, S3 gallop, no murmurs, no rubs, ICD site healthy, tachycardia present Abdomen: Soft, nontender, no organomegaly, bowel sounds present Neuro: No focal deficits, no facial deformity, AO x3, power 5/5 in all limbs Discharge Data Data Completed and Pending: Completed Studies During Hospitalization Category Date Time Status CT angio chest PE protcl [id number] Stat Cat Scan 04/10/20 08:44 Completed XR chest 1V rae ble [id number] Stat Exams 04/10/20 09:43 Completed NM jade perf SPECT r/s* [id number] Routin e Nuc Med 04/12/20 20:18 Completed CV echo complete* [id number] Routine Ultrasound 04/11/20 07:00 Completed US gall bladder 7 [id number] Urgent Ultrasound 04/10/20 09:23 Completed Pending at discharge Category Date Time Status Sestamibi Stress Test Request Routi ne Exams 04/11/20 20:18 Stop Req Sestamibi Stress Test Request Routi ne Exams 04/12/20 06:40 Ordered Blood Culture Sta t Lab 04/10/20 09:32 Results Comprehensive Met abolic Panel AM LA BS Lab 04/13/20 04:00 Ordered Sputum Culture an d Gram Stain Stat Lab 04/11/20 05:17 Results Labs from last 24 hours 04/12/20 04/12/20 04/12/20 04:58 04:58 04:58 Sodium 138 Potassium 3.7 Chloride 99 Carbon Dioxide 25 Anion Gap 17.7 BUN 11 Creatinine 0.6 GFR Calculation 110.2 Glucose 118 H Estimat Average Gl ucose 146 Hemoglobin A1c 6.7 H Calculated Osmolal ity 283 L Calcium 8.9 Phosphorus 3.4 Magnesium 2.1 Total Bilirubin 0.6 AST 53 H ALT 78 H Alkaline Phosphata se 113 H Total Protein 7.1 Albumin 3.8 Globulin 3.3 Vitals: Last Vital Signs Temp 98.7 F 04/12/20 15:12 Pulse 101 H 04/12/20 15:12 Resp 21 H 04/12/20 15:12 BP 117/74 04/12/20 15:12 Pulse Ox 92 04/12/20 15:12 Discharge Plan Discharge Patient Disposition: Home, Self-Care Condition: Stable Prescriptions: New atorvastatin 40 mg Tablet 40 mg PO BEDTIME Qty: 30 RF: 0 metformin 500 mg Tablet 500 mg PO BIDWM Qty: 60 RF: 0 metoprolol tartrate 50 mg Tablet 50 mg PO BID Qty: 60 RF: 0 mirtazapine 15 mg Tablet 15 mg PO BEDTIME Qty: 30 RF: 0 lisinopril 2.5 mg Tablet 2.5 mg PO DAILY Qty: 30 RF: 0 Magtab 84 mg Tablet Extended Release 84 mg PO BID Qty: 60 RF: 0 Eliquis 5 mg Tablet 5 mg PO BID Qty: 60 RF: 0 Continued cholecalciferol (vitamin D3) See Rx Instructions .ROUTE .COMPLEX RF: 0 furosemide 40 mg tablet 40 mg PO BID Qty: 60 RF: 3 potassium chloride 20 mEq tablet extended release 20 meq PO DAILY Qty: 30 RF: 3 Vitamin B-12 1 tab PO PRN RF: 0 leighton extract 1 tab PO PRN RF: 0 hawthorn rich See Rx Instructions .ROUTE .COMPLEX RF: 0 hydrocodone-acetaminophen 5-325 mg tablet 1 tab PO Q6H PRN (Reason: pain) Qty: 10 RF: 0 Discontinued metoprolol succinate 25 mg tablet extended release 24 hr 12.5 mg PO DAILY Qty: 15 RF: 3 magnesium 1 tab PO DAILY RF: 0 levofloxacin [Levaquin] 750 mg tablet 750 mg PO DAILY 10 Days Qty: 10 RF: 0 Discharge Orders: Discharge Order (Routine); Ordered 04/12/20 Ordered By: Emiliano Parisi Referrals: Ag Alva [Referring] - 04/21/20 9:40 am (Follow-up) Gilbert Lehman MD [Physician] - 2 weeks Discharge Diet: Cardiac Discharge Activity: Resume usual activity Patient Instructions: Metoprolol (By mouth), Lisinopril (By mouth), Metformin (By mouth), Atorvastatin (By mouth), Mirtazapine (By mouth), Magnesium (By mouth), Apixaban (By mouth) Activity Restrictions/Additional Instructions: Multiple new medications have been started for you including lisinopril, Lopressor, Eliquis, statin, metformin. Please follow-up with Dr. Lehman in 2 weeks. Appointment has been made for you with a new primary care provider. Please follow-up with a primary care provider. As discussed it is very important that you maintain your lifestyle modification and try to quit smoking as soon as possible. Discharge Attestations Time Spent in Discharge Care*: greater than 30 min Specific Discharge Activities: Specific discharge activities: educating patient, discussing with pcp/other providers, discussing with case management social worker/social workers/dc planners, documenting/other paperwork and evaluating patient/reviewing data Time Spent in Smoking Cessation: Time spent discussing smoking cessation with patient: more than 10 minutes Status at Discharge: Cognitive status at discharge: cognitively intact, Behavioral status at discharge: can be uncooperative, Functional status at discharge: independent ambulation Overall status at discharge: patient is progressing back to baseline Quality Metrics Clinical Quality Measures During this hospital stay, did patient experience: None Coding Level of Care Code Acute Helix Coil Winder for Kahlilg Fwd Diagnoses Abnormal nuclear stress test R94.39 Atypical chest pain R07.89 cardiomyopathy O90.3 Nonsustained ventricular tachycardia I47.2 Intermittent atrial fibrillation I48.0 AICD (automatic cardioverter/defibrillator) present Z95.810
[2020-04-12 18:37] VITALS: BP 117/74; PULSE 101; RESP 21; TEMP 37.1; O2SAT 92
[2020-04-12] MEDS: apixaban 5 mg Tablet PO (19:09)
[2020-04-12] MEDS: magnesium lactate 84 mg Tablet PO (19:10)
--- NOTE | 2020-04-12 20:18 | NMCV_ITS ---
NM jade perf SPECT r/s* [id number] Sarah Curtis Age: 40 Gender: F : 1980 Exam Date: 04/12/2020 08:42 Ordering Phys: Emiliano Parisi MD Technologist: NEL Castellon Exam Location: [facility] Indications: CP, SOB STRESS TEST Please see separate stress test report in [facility] for full findings IMAGE PROTOCOL Rest/Stress 1 Lexiscan Day Radiopharmaceutical Dose (mCi) Administration Site Administered by Rest: Tc-99m 10.7 IV NEL Serrato Sestamibi Stress:Tc-99m 32.7 IV NEL Serrato Sestamibi Rest: 12-Apr-2020 60 Discovery 630 Stress: 12-Apr-2020 30 Discovery 630 0.4mg Lexiscan. Images obtained in supine and prone position. SPECT RESULTS Technical Quality: Excellent Raw Data Analysis: Normal Image Corrections: No attenuation or motion correction applied Summed Stress Score: 13 Summed Rest Score: 11 Summed Difference Score: 3 PERFUSION FINDINGS My call perfusion imaging revealing a moderate to large area of decreased tracer uptake in the basal mid and apical inferior, basal and mid inferolateral and mid anterolateral regions. Subtle areas reversibility was noted in the inferior and anterolateral regions. FUNCTIONAL RESULTS (calculated via Gated SPECT) Stress Image LV EF (%): 34 Stress EDV (mL):360 TID: 0.91 Stress ESV (mL):238 FUNCTIONAL FINDINGS: Segmental wall motion analysis revealed moderate diffuse hypokinesia of the anterior, inferior and septal regions. IMPRESSIONS 1. Myocardial perfusion imaging revealing moderately large areas of persistent decreased tracer uptake in the inferior, inferolateral and anterolateral regions, with subtle areas of reversibility, suggestive of myocardial scarring with possible no-infarction ischemia in the distribution of the right coronary artery and circumflex artery. 2. Diminished LV ejection fraction of 34%. 3. Multiple wall motion abnormality is as mentioned above. 4. Markedly dilated LV cavity with an end systolic volume of 238 mL No similar previous studies are available for comparison Dr Fina Topete MD FACC (Electronically Signed) Final Date: 12 Apr 2020 14:34 S
== END 2020-04-12 19:04 | disposition home or self-care (01) | DRG 776 ==
LOC: ER 12:01 → MEDSURG 12:43 → CSU 15:30
PROVIDERS: Admitting Provider Student in an Organized Health Care Education/Training Program; Emergency Provider Family Medicine; Visit Provider Student in an Organized Health Care Education/Training Program
DX: O99.43 Diseases of the circulatory system complicating the puerperium (principal); I50.43 Acute on chronic combined systolic (congestive) and diastolic (congestive) heart failure; J18.9 Pneumonia, unspecified organism; I47.2 Ventricular tachycardia; I42.9 Cardiomyopathy, unspecified; E11.9 Type 2 diabetes mellitus without complications; Z95.810 Presence of automatic (implantable) cardiac defibrillator; F17.210 Nicotine dependence, cigarettes, uncomplicated; I48.0 Paroxysmal atrial fibrillation; J45.909 Unspecified asthma, uncomplicated; Z82.49 Family history of ischemic heart disease and other diseases of the circulatory system; Z83.3 Family history of diabetes mellitus; E78.5 Hyperlipidemia, unspecified
CPT/HCPCS: 12345; 36415; 71045; 71275; 76705; 78452; 80053; 80061; 83036; 83540; 83550; 83735; 83880; 84100; 84145; 84439; 84443; 84481; 84484; 85025; 86403; 87040; 87070; 87205; 87449; 87641; 93005; 93017; 93306; 94640; 94664; 96365; 96372; 96375; 96376; 99283; 99285; A9500; J0696; J1650; J1940; J1956; J2270; J2405; J2785; J7030; J7611; Q0144; Q9967

== ENCOUNTER 2024-04-23 17:30 | Emergency (ER) | payer OTHER, SELFPAY ==
[2024-04-23 17:32] VITALS: BP 113/72; PULSE 95; RESP 18; O2SAT 99; BMI 34.7
[2024-04-23 17:39] VITALS: BP 113/72; PULSE 96; RESP 16; O2SAT 98
--- NOTE | 2024-04-23 17:55 | XRR_ITS ---
PROCEDURE INFORMATION: Exam: XR Chest Exam date and time: 04/23/2024 6:39 PM Age: 44 years old Clinical indication: Chest wall pain; Prior surgery; Surgery date: 6+ months; Surgery type: Pacer; Additional info: Chest pain TECHNIQUE: Imaging protocol: Radiologic exam of the chest. Views: 1 view. COMPARISON: CR XR chest 1V portable [id number] 04/10/2020 9:45 AM FINDINGS: Lungs: No focal consolidation. Pleural spaces: No evidence of pneumothorax. No evidence of pleural effusion. Heart/Mediastinum: There is prominence of the pulmonary arterial contour, suggesting pulmonary hypertension. Cardiomediastinal silhouette is otherwise within normal limits. Left subclavian approach pacemaker ICD. Bones/joints: No evidence of acute osseous abnormality. XR/XR chest 1V portable [id number] IMPRESSION: 1. No acute cardiopulmonary abnormality. 2. Suspected pulmonary hypertension.
--- NOTE | 2024-04-23 17:55 | ECG_ITS ---
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 Measurements Intervals [place] Rate: 95 P: 71 SD: 193 QRS: 71 QRSD: 109 T: 59 QT: 377 QTc: 476 Interpretive Statements SINUS RHYTHM Compared to ECG 04/12/2020 15:51:35 Intraventricular conduction delay no longer present Left ventricular hypertrophy no longer present T-wave abnormality no longer present Prolonged QT interval no longer present Electronically Signed On 04-23-2024 18:14:55 CDT by Isidro Meléndez M.D. [email or web address](In)Touch Network.Application [facility].[employer]/store/NU/[id number] f
--- NOTE | 2024-04-23 18:02 | W.ED.DIZZY ---
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 Patient states she had went to a clinic earlier today with complaints of a right earache. She felt like her ear was swollen. She was subsequently diagnosed with an acute otitis externa and placed on Cefdinir, Ciprodex, and Oxycodone. Patient states she did take one Oxycodone and about 40 minutes later while she was in a car with her daughter driving, began developing dizziness, heart racing, visual changes, and daughter states she blacked out for less than a minute. Reportedly never lost a pulse or was apneic. She states since then she has had intermittent waves of dizziness. She arrives with stable vital signs. She does not feel like her defibrillator fired. MD elicited complaint: dizziness Pertinent past history: inner ear problems (recently diagnosed with an acute otitis externa) and pacemaker Onset (ago): hour(s) Timing: sudden onset Severity: moderate Context: change in medication (took an oxycodone 40 mins to symptoms starting) History of similar symptoms: No Exacerbating factors: movement/ambulation Relieving factors: remaining still Associated symptoms: Denies chest pain, chills, headache(s), nausea, palpitations, syncope or vomiting Associated neuro symptoms: Deny confusion or numbness in extremities Stroke scale total: 0 Review of Systems Const: Denies: fever(s) or chills Eyes: Reports: change in vision (tunnel vision during episode-now resolved); Denies: blurry vision, blind spots or photophobia Card: Reports: other (reportedly racing heart during episode-this has resolved); Denies: chest pain, palpitations, irregular heart rhythm, lightheadedness, syncope or dyspnea on exertion Resp: Denies: dyspnea, productive cough or pain on inspiration GI: Denies: abdominal pain, nausea, vomiting, heartburn or diarrhea : Denies: dysuria Musc: Denies: neck pain, back pain or joint pain Skin/Breast: Denies: rash Neuro: Reports: dizziness; Denies: headache(s), numbness in extremities, weakness in extremities, sensory changes, lack of coordination, difficulty walking, frequent falls, confusion, behavioral changes, Slurred speech present, difficulty communicating thoughts, seizure-like activity or involuntary movements PFS ED PFSH: Medical History (Updated 04/23/24 @ 19:48 by ISAIAS Link) Intermittent atrial fibrillation Nonsustained ventricular tachycardia Abnormal nuclear stress test Atypical chest pain cardiomyopathy Asthma Pacemaker Heart failure Cardiomyopathy Surgical History AICD (automatic cardioverter/defibrillator) present S/P cholecystectomy H/O section Family History Other CAD (coronary artery disease) Diabetes Social History Smoking and tobacco/nicotine status: current every day tobacco/nicotine user cigarettes Packs smoked per day: 0.5 Alcohol intake: current Alcohol intake frequency: holidays/special occasions only Substance/Drug Use: current Substance/Drug use frequency: daily Household members: spouse and children Housing: House Marital status: Physical Exam Const: COMMON NORMALS: no acute distress, patient oriented x3, no limitations, alert and well nourished GENERAL APPEARANCE: cooperative NUTRITIONAL APPEARANCE: overweight ORIENTATION/CONSCIOUSNESS: Yes awake, Yes oriented to person, Yes oriented to place and Yes oriented to time HENMT: COMMON NORMALS: normocephalic and atraumatic HEAD & SCALP: normal to inspection, normocephalic and atraumatic FACE & SINUS: normal facial exam EXTERNAL EAR: Yes mastoids normal and Yes no periauricular adenopathy EXTERNAL AUDITORY CANAL: Abnormal EAC present (significant swelling to R EAC) MOUTH: Normal oral and palatal mucosa present and lip normal THROAT: posterior oropharynx normal Eye: COMMON NORMALS: Equal, round and reactive pupils present, EOMs intact bilaterally and no scleral icterus GENERAL EYE: appearance normal, both eyes and all related structures and normal light reflex PUPIL: Yes Equal, round and reactive pupils present DIRECT OPHTHALMOSCOPY: Yes normal light reflex OTHER: no nystagmus Neck/C-Spine: COMMON NORMALS: full ROM, no lymphadenopathy, supple and no meningeal signs Chest: COMMONS NORMALS: normal inspection of the chest Resp: COMMON NORMALS: normal respiratory effort and clear to auscultation bilaterally AUSCULTATION: clear to auscultation bilaterally Cardio: COMMON NORMALS: regular rate and regular rhythm RATE: regular rate RHYTHM: regular rhythm GI: COMMON NORMALS: Normal to inspection, nondistended, normoactive bowel sounds present, Soft to palpation, non-tender, No hepatosplenomegaly present and no masses PALPATION: Yes Soft to palpation and Yes No hepatosplenomegaly present : COMMON NORMALS: Yes no CVA tenderness BLADDER/KIDNEY EXAM: Yes no CVA tenderness Back/Pelvis: COMMON NORMALS: no CVA tenderness and thoracic and lumbar spine normal to inspection Extremity: COMMON NORMALS: normal to inspection GENERAL: Yes normal exam except as noted Neuro: JEAN-PAUL COMA SCALE: document GCS findings [place] coma scale eye opening: Spontaneous [place] coma scale verbal response: Orientated Jean-Paul coma scale motor response: Obey commands Jean-Paul coma scale total score: 15 COMMON NORMALS: patient oriented x3, CN's II-XII intact bilaterally, moves all extremities, no focal motor deficits and no sensory deficits noted SENSORIUM/ORIENTATION: Yes alert, Yes oriented to person, Yes oriented to place and Yes oriented to time MENINGEAL SIGNS: Yes no meningeal signs CRANIAL NERVES: Yes HiNTS Skew: normal Skin: COMMON NORMALS: no rashes or lesions noted GENERAL SKIN EXAM: no rashes or lesions noted Course Vital Signs: Vital signs: Vital Signs Pulse Rate 105 H 04/23/24 19:13 Respiratory Rate 22 H 04/23/24 19:13 Blood Pressure 107/84 04/23/24 19:13 Pulse Oximetry 98 04/23/24 19:13 Oxygen Delivery Me thod Room Air 04/23/24 19:13 MDM - Dizziness Medical Decision Making Patient is a 44-year-old female here with complaints of an episode of dizziness, tunnel vision, racing heart rate, and syncopal episode. Symptoms began 40 minutes after taking an Oxycodone. She was diagnosed with a right otitis externa earlier today and placed on Cefdinir, Ciprodex, and Oxycodone. Upon arrival patient feels improved. Her dizziness has improved. She was ambulatory without difficulty to the restroom and back. Workup today extensive given her past medical history. Her baseline and repeat troponins are normal. EKGs showing no form of arrhythmia. Her AICD/pacemaker was interrogated and patient did not have any reported events during episode. Again she is clinically improved while here. Remainder of blood work is unremarkable. Her UA does show evidence of infection. The cefdinir she has been prescribed for her otitis externa should cover for this. Recommend follow-up with her PCP. Return to ED precautions given. Differential Diagnosis Likely adverse reaction to drug and benign paroxysmal positional vertigo Medical Records I reviewed the patient's medical records. Lab Data I reviewed the patient's lab results. 04/23/24 17:00 04/23/24 17:00 Radiology Impressions Chest X-Ray 04/23/24 17:55 IMPRESSION: 1. No acute cardiopulmonary abnormality. 2. Suspected pulmonary hypertension. Laboratory Results WBC 9.97 10^3/uL (3.29-11.43) 04/23/24 17:00 RBC 4.46 10^6/uL (3.85-5.65) 04/23/24 17:00 Hgb 13.70 g/dL (11.27-16.99) 04/23/24 17:00 Hct 40.2 % (36-47) 04/23/24 17:00 MCV 90.1 fl (85-98) 04/23/24 17:00 MCH 30.7 pg (27-33) 04/23/24 17:00 MCHC 34.1 g/dL (30-55) 04/23/24 17:00 RDW 13.5 % (12.1-15.1) 04/23/24 17:00 Plt Count 295 10^3/cmm (157-399) 04/23/24 17:00 MPV 10.1 fL (7.4-10.4) 04/23/24 17:00 Neut % (Auto) 66.2 % 04/23/24 17:00 Lymph % (Auto) 24.1 % 04/23/24 17:00 [place] % (Auto) 7.7 % 04/23/24 17:00 Eos % (Auto) 1.3 % 04/23/24 17:00 Baso % (Auto) 0.4 % 04/23/24 17:00 Neut # (Auto) 6.60 10^3/uL (1.8-7.7) 04/23/24 17:00 Lymph # (Auto) 2.4 10^3/uL (0.8-4.8) 04/23/24 17:00 [place] # (Auto) 0.8 10^3/uL (0.2-0.9) 04/23/24 17:00 Eos # (Auto) 0.1 10^3/uL (0.0-0.8) 04/23/24 17:00 Baso # (Auto) 0.0 10^3/uL (0.0-0.1) 04/23/24 17:00 Nucleated RBC % (auto) 0 % 04/23/24 17:00 Nucleated RBCs # 0.0 /100WBC 04/23/24 17:00 Sodium 135 mmol/L (136-145) L 04/23/24 17:00 Potassium 4.5 mmol/L (3.5-5.1) 04/23/24 17:00 Chloride 102 mmol/L (98-107) 04/23/24 17:00 Carbon Dioxide 20 mmol/L (22-29) L 04/23/24 17:00 Anion Gap 17.5 (5-19) 04/23/24 17:00 BUN 9 mg/dL (6-20) 04/23/24 17:00 Creatinine 0.4 mg/dL (0.5-0.9) L 04/23/24 17:00 GFR Calculation 172.6 mL/min (90-130) H 04/23/24 17:00 Glucose 122 mg/dL (65-115) H 04/23/24 17:00 Calculated Osmolality 280 mOsm/kg (285-295) L 04/23/24 17:00 Calcium 8.7 mg/dL (8.5-10.5) 04/23/24 17:00 Total Bilirubin 0.8 mg/dL (0.15-1.2) 04/23/24 17:00 AST 14 U/L (0-32) 04/23/24 17:00 ALT 20 U/L (0-33) 04/23/24 17:00 Alkaline Phosphatase 108 U/L (35-105) H 04/23/24 17:00 Troponin T Baseline < 6 ng/L (0-10) 04/23/24 17:00 Troponin T 120 Minute 7.57 ng/L (0-10) 04/23/24 19:18 Delta Troponin T 1.49056 ABS# (0-10) 04/23/24 19:18 NT-Pro-B Natriuret Pep 665 pg/mL (0-125) H 04/23/24 17:00 Total Protein 7.4 g/dL (6.6-8.7) 04/23/24 17:00 Albumin 4.1 g/dL (3.5-5.2) 04/23/24 17:00 Globulin 3.3 g/dL (1.3-4.6) 04/23/24 17:00 Urine Color Yellow (Yellow) 04/23/24 19:05 Urine Appearance Slightly cloudy (CLEAR) 04/23/24 19:05 Urine pH 5 (5-7) 04/23/24 19:05 Ur Specific [place] 1.025 (1.005-1.030) 04/23/24 19:05 Urine Protein Neg (Negative) 04/23/24 19:05 Urine Glucose (UA) Norm (Normal) 04/23/24 19:05 Urine Ketones Negative (Negative) 04/23/24 19:05 Urine Blood Neg (Negative) 04/23/24 19:05 Urine Nitrate Positive (Negative) H 04/23/24 19:05 Urine Bilirubin Neg (Negative) 04/23/24 19:05 Urine Urobilinogen Norm mg/dL (Negative) 04/23/24 19:05 Ur Leukocyte Esterase 1+ (Negative) H 04/23/24 19:05 Urine RBC 0-4 /hpf (0-2) H 04/23/24 19:05 Urine WBC 25-40 /hpf (0-5) H 04/23/24 19:05 Ur Squamous Epith Cells 5-10 /hpf (0-5) H 04/23/24 19:05 Ur Transition Epith Cell 0-4 /hpf 04/23/24 19:05 Amorphous Sediment Not Reportable 04/23/24 19:05 Urine Bacteria 3+ /hpf (NONE) H 04/23/24 19:05 Urine Mucus 3+ /hpf 04/23/24 19:05 All radiology interpretation(s) finalized by discharge Discharge Plan Discharge Patient Disposition: Home Clinical Impression: Otitis externa Qualifiers: Otitis externa type: unspecified type Chronicity: acute Laterality: right Qualified Code(s): H60.501 - Unspecified acute noninfective otitis externa, right ear Episode of syncope Qualifiers: Syncope type: unspecified Qualified Code(s): R55 - Syncope and collapse Condition: Stable Prescriptions: No Action cholecalciferol (vitamin D3) See Rx Instructions .ROUTE .COMPLEX Rx Instructions: 50,000 units po once a week pt states she takes on sunday or mondays-cleo medicine not open to verify medication furosemide 40 mg tablet 40 mg PO BID Qty: 60 3RF Rx Instructions: pt states she had iv lasix on 04/09/2020 potassium chloride 20 mEq tablet extended release 20 meq PO DAILY Qty: 30 3RF Vitamin B-12 1 tab PO PRN [place] extract 1 tab PO PRN [place]orn rich See Rx Instructions .ROUTE .COMPLEX Rx Instructions: pt states she takes once or twice a month atorvastatin 40 mg Tablet 40 mg PO BEDTIME Qty: 30 0RF metformin 500 mg Tablet 500 mg PO BIDWM Qty: 60 0RF metoprolol tartrate 50 mg Tablet 50 mg PO BID Qty: 60 0RF mirtazapine 15 mg Tablet 15 mg PO BEDTIME Qty: 30 0RF lisinopril 2.5 mg Tablet 2.5 mg PO DAILY Qty: 30 0RF Magtab 84 mg Tablet Extended Release 84 mg PO BID Qty: 60 0RF Eliquis 5 mg Tablet 5 mg PO BID Qty: 60 0RF hydrocodone-acetaminophen 5-325 mg tablet 1 tab PO Q6H PRN (Reason: pain) Qty: 10 0RF Discharge Orders: Discharge ED (Routine); Ordered 04/23/24 Ordered By: Samara Alfred Activity Restrictions/Additional Instructions: You may follow-up with your primary care provider if dizziness persists. You may return to the emergency department for any further syncopal episodes, chest pain, shortness of breath, difficulty breathing, intractable dizziness or trouble ambulating, or any other concerns you may have. Coding Level of Care Code ED Veneer Slicing Machine Operator for Gi Vega
[2024-04-23 18:31] LABS: Basophils % 0.4 %; Eosinophils # 0.1 10^3/uL (0.0-0.8); Eosinophils % 1.3 %; Hematocrit 40.2 % (36-47); Lymphocytes # 2.4 10^3/uL (0.8-4.8); Lymphocytes % 24.1 %; Mean Corpuscular HGB Conc 34.1 g/dL (30-55); Mean Corpuscular Hemoglobin 30.7 pg (27-33); Mean Corpuscular Volume 90.1 fl (85-98); Mean Platelet Volume 10.1 fL (7.4-10.4); Monocytes # 0.8 10^3/uL (0.2-0.9); Monocytes % 7.7 %; Neutrophils % 66.2 %; Nucleated Red Blood Cells % 0 %; Platelet Count 295 10^3/cmm (157-399); Red Blood Count 4.46 10^6/uL (3.85-5.65); Red Cell Distribution Width 13.5 % (12.1-15.1); White Blood Count 9.97 10^3/uL (3.29-11.43)
[2024-04-23] MEDS: sodium chloride 0.9% 1,000 ML 999 ML IV (18:35)
[2024-04-23] MEDS: meclizine 25 mg tablet PO (18:35)
[2024-04-23 18:37] LABS: Troponin(5th) Baseline < 6 ng/L (0-10)
[2024-04-23 18:39] VITALS: BP 103/73; PULSE 87; RESP 14; O2SAT 97
[2024-04-23 18:45] LABS: Alanine Aminotransferase 20 U/L (0-33); Albumin Level 4.1 g/dL (3.5-5.2); Alkaline Phosphatase 108 U/L (35-105); Anion Gap 17.5 (5-19); Aspartate Amino Transferase 14 U/L (0-32); Blood Urea Nitrogen 9 mg/dL (6-20); Calcium 8.7 mg/dL (8.5-10.5); Carbon Dioxide 20 mmol/L (22-29); Chloride 102 mmol/L (98-107); Creatinine Clr Calc Pharmacy 223.4857; Globulin 3.3 g/dL (1.3-4.6); Glomerular Filtration Rate 172.6 mL/min (90-130); Glucose 122 mg/dL (65-115); NT Pro B Type Natriuretic Pept 665 pg/mL (0-125); Osmolality Calculated 280 mOsm/kg (285-295); Potassium 4.5 mmol/L (3.5-5.1); Sodium 135 mmol/L (136-145); Total Bilirubin 0.8 mg/dL (0.15-1.2); Total Protein 7.4 g/dL (6.6-8.7)
[2024-04-23 19:13] VITALS: BP 107/84; PULSE 105; RESP 22; O2SAT 98
[2024-04-23] MEDS: diphenhydrAMINE 50 mg/mL SDV 1mL 12.5 MG IVP (19:18)
[2024-04-23 19:23] LABS: Add Urine Microscopic? YES; Bilirubin Urine Neg (Negative); Blood Urine Neg (Negative); Glucose Urine UA Norm (Normal); Ketones Urine Negative (Negative); Leukocyte Esterase Urine 1+ (Negative); Nitrate Urine Positive (Negative); Protein Urine Neg (Negative); Specific Gravity, Urine 1.025 (1.005-1.030); Urine Appearance Slightly Cloudy (CLEAR); Urine Color Yellow (Yellow); Urobilinogen Urine Norm (Negative); pH Urine 5 (5-7)
[2024-04-23 19:34] LABS: RBC Urine 0-4 /hpf (0-2); WBC Urine 25-40 /hpf (0-5)
[2024-04-23 19:35] LABS: Add Urine Culture? Yes; Bacteria Urine 3+ /hpf; Mucus Urine 3+ /hpf; Transitional Epi Cells Urine 0-4 /hpf
[2024-04-23 19:44] LABS: Troponin 5 2HR 7.57 ng/L (0-10); Troponin 5 2HR Delta 1.57001 ABS# (0-10)
--- NOTE | 2024-04-24 07:45 | DCPLANNER ---
message sent to [facility] to establish PCP
== END 2024-04-23 20:06 | disposition home or self-care (01) ==
PROVIDERS: Emergency Provider Physician Assistant
DX: H60.501 Unspecified acute noninfective otitis externa, right ear (principal); R55 Syncope and collapse; Z79.01 Long term (current) use of anticoagulants; Z79.84 Long term (current) use of oral hypoglycemic drugs; Z95.0 Presence of cardiac pacemaker; I50.9 Heart failure, unspecified; I42.9 Cardiomyopathy, unspecified; F17.210 Nicotine dependence, cigarettes, uncomplicated
CPT/HCPCS: 36415; 71045; 80053; 81001; 83880; 84484; 85025; 87077; 87086; 87186; 93005; 96361; 96374; 99285; J1200; J7030; J8597

== ENCOUNTER 2024-05-07 11:37 | Observation (INO) | payer OTHER, SELFPAY ==
[2024-05-07] VITALS (11 sets, daily range): BP systolic 90–118; BP diastolic 57–82; PULSE 84–100; RESP 14–22; TEMP 36.5–36.9; O2SAT 94–98; BMI 33.4; BMI 36.1
--- NOTE | 2024-05-07 11:41 | CT_ITS ---
WS: [id number] CT HEAD TECHNIQUE: Noncontrast CT of the head obtained from the skullbase to the vertex. CLINICAL INFORMATION: dizzy COMPARISON: None. DLP: 1084.[address] scans at [facility] use at least one of these dose optimization techniques: automated e xposure control; mA and/or kV adjustment per patient size (includes targeted exams where dose is matc hed to clinical indication); or iterative reconstruction. FINDINGS: No evidence of intracranial hemorrhage or mass effect. Ventricular system and basal cisterns are melgar nt. No extra-axial fluid collections. No evidence of mass or mass effect. Normal lou-white differen tiation. Paranasal sinuses and mastoid air cells are well aerated. .Normal visualized soft tissues. CT/CT head wo con* [id number] IMPRESSION: 1. No evidence of intracranial hemorrhage or mass effect. 2. No acute intracranial findings.
--- NOTE | 2024-05-07 11:41 | ECG_ITS ---
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 Measurements Intervals [place] Rate: 99 P: 68 DE: 192 QRS: 43 QRSD: 111 T: 53 QT: 374 QTc: 480 Interpretive Statements SINUS RHYTHM POSSIBLE LEFT ATRIAL ENLARGEMENT [-0.1mV P-WAVE IN V1/V2] MODERATE INTRAVENTRICULAR CONDUCTION DELAY [110+ ms QRS DURATION] Compared to ECG 04/23/2024 17:36:33 Intraventricular conduction delay now present Electronically Signed On 05-07-2024 17:06:11 CDT by Isidro Meléndez M.D. [email or web address] hospitalOrad Hi-Tech Systemspremier health [facility].[employer]/store/NU/[id number] f
--- NOTE | 2024-05-07 11:46 | ED_ITS ---
HPI - Dizziness 2 General: Chief Complaint: Dizziness Stated Complaint: Dizziness/Nausea Time Seen by Provider: 05/07/24 11:37 Source: patient and EMS Mode of arrival: EMS Limitations: no limitations History of Present Illness: HPI Narrative: 44-year-old female states she has had so me dizziness started today she is not lightheaded normal some vertigo with the movement. States it is much improved at rest. She has no symptoms currently at rest. She had some lightheadedness with standing does have a history of cardiomyopathy. She denies any fever denies any headache Associated symptoms: Denies chest pain, chills, headache(s), nausea or vomiting Review of Systems 2 Const: Denies: fever(s), chills, body aches or change in appetite ENMT: Denies: throat pain or dental pain Card: Reports: lightheadedness; Denies: chest pain Resp: Denies: dyspnea GI: Denies: abdominal pain, nausea, vomiting or diarrhea : Denies: dysuria Musc: Denies: neck pain or back pain Skin/Breast: Denies: rash Neuro: Reports: dizziness; Denies: headache(s) PFSH ED 2 PFSH: Medical History Medication management Otitis media Tick bite Low left ventricular ejection fraction QT prolongation Intermittent atrial fibrillation Nonsustained ventricular tachycardia Abnormal nuclear stress test Atypical chest pain cardiomyopathy Asthma Pacemaker Heart failure Cardiomyopathy Surgical History AICD (automatic cardioverter/defibrillator) present S/P cholecystectomy H/O section Family History Other CAD (coronary artery disease) Diabetes Social History Smoking and tobacco/nicotine status: current every day tobacco/nicotine user cigarettes Packs smoked per day: 0.5 Alcohol intake: current Alcohol intake frequency: holidays/special occasions only Substance/Drug Use: current Substance/Drug use frequency: daily Household members: spouse and children Housing: House Marital status: Physical Exam 2 Const: COMMON NORMALS: no acute distress, patient oriented x3 and healthy appearing HENMT: COMMON NORMALS: normocephalic and atraumatic HEAD & SCALP: n ormocephalic and atraumatic Neck/C-Spine: COMMON NORMALS: full ROM and supple Chest: COMMONS NORMALS: normal inspection of the chest Resp: COMMON NORMALS: normal respiratory effort Cardio: COMMON NORMALS: regular rate RATE: regular rate Extremity: COMMON NORMALS: normal to inspection and full ROM Neuro: COMMON NORMALS: patient oriented x3, moves all extremities and no focal motor deficits CRANIAL NERVES: Yes CN normal except as noted SPEECH: s peech normal GAIT: Yes Normal gait present Psych: COMMON NORMALS: mental status grossly normal, Normal thought process present and cooperative THOUGHT PROCESS: Normal thought process present Skin: COMMON NORMALS: no rashes or lesions noted and no wounds GENERAL SKIN EXAM: no rashes or lesions noted Course 2 Vital Signs: Vital signs: Vital Signs Temperature 98.3 F 05/07/24 11:38 Pulse Rate 94 05/07/24 14:00 Respiratory Rate 18 05/07/24 14:00 Blood Pressure 112/74 05/07/24 14:00 Pulse Oximetry 96 05/07/24 14:00 Oxygen Delivery Me thod Room Air 05/07/24 14:00 MDM - Dizziness Medical Decision Making Patient presents here with vertigo she is continue to have vertigo here after treatment along with some difficulty walking her NIH is a 0. She is not a lytic candidate as she is on Eliquis. I spoke to the hospitalist will admit for observation at this time Medical Records I reviewed the patient's medical records. Lab Data I reviewed the patient's lab results. 05/07/24 10:21 05/07/24 12:[address] 05/07/24 11:41 IMPRESSION: 1. No evidence of intracranial hemorrhage or mass effect. 2. No acute intracranial findings. Head/Neck CTA 05/07/24 13:53 IMPRESSION: 1. 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 Recommend vascular surgery or cardiology consultation. 2. Otherwise normal head and neck CTA Laboratory Results WBC 7.27 10^3/uL (3.29-11.43) 05/07/24 10:21 RBC 4.29 10^6/uL (3.85-5.65) 05/07/24 10:21 Hgb 13.40 g/dL (11.27-16.99) 05/07/24 10:21 Hct 39.9 % (36-47) 05/07/24 10:21 MCV 93.0 fl (85-98) 05/07/24 10:21 MCH 31.2 pg (27-33) 05/07/24 10:21 MCHC 33.6 g/dL (30-55) 05/07/24 10:21 RDW 13.3 % (12.1-15.1) 05/07/24 10:21 Plt Count 291 10^3/cmm (157-399) 05/07/24 10:21 MPV 10.6 fL (7.4-10.4) H 05/07/24 10:21 Neut % (Auto) 58.0 % 05/07/24 10:21 Lymph % (Auto) 32.6 % 05/07/24 10:21 [place] % (Auto) 5.6 % 05/07/24 10:21 Eos % (Auto) 2.9 % 05/07/24 10:21 Baso % (Auto) 0.6 % 05/07/24 10:21 Neut # (Auto) 4.22 10^3/uL (1.8-7.7) 05/07/24 10:21 Lymph # (Auto) 2.4 10^3/uL (0.8-4.8) 05/07/24 10:21 [place] # (Auto) 0.4 10^3/uL (0.2-0.9) 05/07/24 10:21 Eos # (Auto) 0.2 10^3/uL (0.0-0.8) 05/07/24 10:21 Baso # (Auto) 0.0 10^3/uL (0.0-0.1) 05/07/24 10:21 Nucleated RBC % (auto) 0 % 05/07/24 10:21 Nucleated RBCs # 0.0 /100WBC 05/07/24 10:21 Sodium 133 mmol/L (136-145) L 05/07/24 12:58 Potassium 4.2 mmol/L (3.5-5.1) 05/07/24 12:58 Chloride 100 mmol/L (98-107) 06/12/24 12:58 Carbon Dioxide 20 mmol/L (22-29) L 05/07/24 12:58 Anion Gap 17.2 (5-19) 05/07/24 12:58 BUN 12 mg/dL (6-20) 05/07/24 12:58 Creatinine 0.3 mg/dL (0.5-0.9) L 05/07/24 12:58 GFR Calculation 240.6 mL/min (90-130) H 05/07/24 12:58 Glucose 107 mg/dL (65-115) 05/07/24 12:58 Calculated Osmolality 276 mOsm/kg (285-295) L 05/07/24 12:58 Calcium 8.5 mg/dL (8.5-10.5) 05/07/24 12:58 Total Bilirubin 0.5 mg/dL (0.15-1.2) 05/07/24 12:58 AST 24 U/L (0-32) 05/07/24 12:58 ALT 28 U/L (0-33) 05/07/24 12:58 Alkaline Phosphatase 90 U/L (35-105) 05/07/24 12:58 Total Protein 6.6 g/dL (6.6-8.7) 05/07/24 12:58 Albumin 3.5 g/dL (3.5-5.2) 05/07/24 12:58 Globulin 3.1 g/dL (1.3-4.6) 05/07/24 12:58 All radiology interpretation(s) finalized by discharge EKG Data EKG 1: I personally reviewed and interpreted this EKG as follows: EKG interpretation date: 05/07/24 EKG interpretation time: 11:43 Interpretation: nsr hr 99 no s elevation qrs 111 qtc 430 Discharge Plan Discharge Patient Disposition: Admitted As Inpatient Clinical Impression: Vertigo Condition: Stable Prescriptions: No Action metoprolol tartrate 25 mg tablet 12.5 mg PO DAILY spironolactone 25 mg tablet 12.5 mg PO DAILY diphenhydramine HCl [Benadryl] 25 mg capsule 25 mg PO TID PRN (Reason: ALLERGIES) potassium chloride 20 mEq tablet extended release 20 meq PO BID torsemide 20 mg tablet 40 mg PO DAILY Entresto 24-26 mg tablet 1 tab PO BID insulin lispro [Humalog Kishan KwikPen U-100] 100 unit/mL insulin pen, half- unit 10.5 unit SUBCUT BID magnesium L-lactate [Magtab] 84 mg Tablet Extended Release 84 mg PO BID Qty: 60 0RF Eliquis 5 mg Tablet 5 mg PO BID Qty: 60 0RF Farxiga 5 mg Tablet 5 mg PO DAILY Referrals: SONYA Mckeon, RN PLASTIC SURGERY [Primary Care Provider] - Discharge Diet: Advance as tolerated Discharge Activity: Resume usual activity Patient Instructions: Vertigo (ED) Coding Level of Care Code ED Registered Nurse Supervisor for Gi Vega NIH stroke score NIHSS Level Of Consciousness - 1a: 0 Level Of Consciousness Questions - 1b: Both Correct Level Of Consciousness Commands - 1c: Both Correct Best Gaze - 2: Normal Visual [place] - 3: No Visual Loss Facial Palsy - 4: Normal Motor Arm Right - 5: No Drift Motor Arm Left - 5: No Drift Motor Leg Right - 6: No Drift Motor Leg Left - 6: No Drift Limb Ataxia - 7: Absent Sensory - 8: Normal Best Language - 9: No Aphasia Dysarthia - 10: Normal Extinction And Inattention - 11: 0 Score Total Score: 0
[2024-05-07] MEDS: ondansetron 2 mg/ML SDV 2 mL 4 MG IVP ×2 (12:08→23:28)
[2024-05-07] MEDS: meclizine 25 mg tablet 50 MG PO (12:08)
[2024-05-07] MEDS: sodium chloride 0.9% 500 ML IV (12:09)
[2024-05-07 12:10] LABS: Basophils % 0.6 %; Eosinophils # 0.2 10^3/uL (0.0-0.8); Eosinophils % 2.9 %; Hematocrit 39.9 % (36-47); Lymphocytes # 2.4 10^3/uL (0.8-4.8); Lymphocytes % 32.6 %; Mean Corpuscular HGB Conc 33.6 g/dL (30-55); Mean Corpuscular Hemoglobin 31.2 pg (27-33); Mean Platelet Volume 10.6 fL (7.4-10.4); Monocytes # 0.4 10^3/uL (0.2-0.9); Monocytes % 5.6 %; Neutrophils # 4.22 10^3/uL (1.8-7.7); Nucleated Red Blood Cells % 0 %; Platelet Count 291 10^3/cmm (157-399); Red Blood Count 4.29 10^6/uL (3.85-5.65); Red Cell Distribution Width 13.3 % (12.1-15.1); White Blood Count 7.27 10^3/uL (3.29-11.43)
--- NOTE | 2024-05-07 12:38 | PC.PHAR ---
PT VERIFIED MEDICATIONS. I CAN'T FIND ANY RECORDS AT EITHER PHARMACY ON FILE. [facility] NEVER F[facility] FOR HER.
[2024-05-07 13:28] LABS: Alanine Aminotransferase 28 U/L (0-33); Albumin Level 3.5 g/dL (3.5-5.2); Alkaline Phosphatase 90 U/L (35-105); Anion Gap 17.2 (5-19); Aspartate Amino Transferase 24 U/L (0-32); Blood Urea Nitrogen 12 mg/dL (6-20); Calcium 8.5 mg/dL (8.5-10.5); Carbon Dioxide 20 mmol/L (22-29); Chloride 100 mmol/L (98-107); Creatinine Clr Calc Pharmacy 292.5543; Globulin 3.1 g/dL (1.3-4.6); Glomerular Filtration Rate 240.6 mL/min (90-130); Glucose 107 mg/dL (65-115); Osmolality Calculated 276 mOsm/kg (285-295); Potassium 4.2 mmol/L (3.5-5.1); Sodium 133 mmol/L (136-145); Total Bilirubin 0.5 mg/dL (0.15-1.2); Total Protein 6.6 g/dL (6.6-8.7)
--- NOTE | 2024-05-07 13:53 | CT_ITS ---
WS: [id number] CTA HEAD AND NECK TECHNIQUE: Contrast enhanced CTA of the head and neck with coronal and sagittal reformatted images an d maximum intensity projection (MIP) images. NASCET criteria utilized. CLINICAL INFORMATION: dizzy COMPARISON: None. DLP: 594.[address] scans at [facility] use at least one of these dose optimization techniques: automated e xposure control; mA and/or kV adjustment per patient size (includes targeted exams where dose is matc hed to clinical indication); or iterative reconstruction. 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 Previously this measured approximately 4.8 cm. RIGHT: RIGHT common carotid artery is patent. No significant RIGHT ICA stenosis. RIGHT ICA is patent to the skull base. LEFT: LEFT common carotid artery is patent. No significant LEFT ICA stenosis. LEFT ICA is patent to t he skull base. Small LEFT A1 segment. Normal vascularity to the TOM[place] and MCA territories bilaterally. No evidence of proximal flow-limiting stenosis or aneurysm. LEFT dominant vertebral artery. Smaller but patent RIGHT vertebral artery. Proximal basilar artery is patent. Patent LEFT posterior communicating artery. Normal vascularity to the [employer] territory bilatera lly. Few prominent cervical chain lymph nodes likely reactive. Lung apices are well aerated. CT/CT angio headneck* [id number] IMPRESSION: 1. 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 Recommend vascular surgery or car diology consultation. 2. Otherwise normal head and neck CTA
[2024-05-07] MEDS: iohexol 350 mg/mL 500 mL Btl (per mL) IV (14:10)
[2024-05-07] MEDS: diazePAM 5 mg Tablet PO (14:14)
--- NOTE | 2024-05-07 15:12 | USCV_ITS ---
Sarah Curtis Age: 44 Gender: F : 1980 Exam Date: 05/07/2024 19:58 Ordering Phys: Emiliano Parisi MD Technologist: ILIANA [place] [facility] [place]: CHF, history of pacer 2012. BP: 105 / 64 HR: 88 Rhythm: Paced rhythm with Atrial fibrillation Technical Quality: Adequate MEASUREMENTS (Male / Female) Normal Values 2D ECHO LV Diastolic Diameter PLAX 7.7 cm 4.2 - 5.9 / 3.9 - 5.3 cm LV Systolic Diameter PLAX 6.4 cm IVS Diastolic Thickness 1.3 cm 0.6 - 1.0 / 0.6 - 0.9 cm IVS Systolic Thickness 1.4 cm LVPW Diastolic Thickness 1.6 cm 0.6 - 1.0 / 0.6 - 0.9 cm LVPW Systolic Thickness 2.1 cm LVOT Diameter 2.3 cm LV Ejection Fraction 2D Teich 34.4 % LV Ejection Fraction MOD 2C 43.6 % LV Ejection Fraction 2C AL 47.0 % LA Diameter 6.5 cm LA Sys Volume AL 252.1 cm cubed LA Sys Volume Index AL 113.4 cm cubed/m squared Aorta at Sinotubular Diameter 2.8 cm IVC Diameter 2.5 cm M-MODE LA Ao Ratio MM 2.3 AV Cusp Separation MM 1.8 cm DOPPLER AV Peak Velocity 139.0 cm/s LVOT Peak Velocity 62.0 cm/s AV Area Cont Eq vti 1.8 cm squared AV Area Cont Eq pk 1.8 cm squared MV Peak Velocity 179.0 cm/s MV Area PHT 3.8 cm squared Mitral E to A Ratio 0.0 TV Peak Velocity 304.0 cm/s TR Peak Velocity 304.0 cm/s TR Peak Gradient 37.0 mmHg TV Peak E Velocity 84.0 cm/s Right Atrial Pressure 15.0 mmHg Pulmonary Artery Systolic Pressu 52.0 mmHg PV Peak Velocity 102.0 cm/s FINDINGS Left Ventricle Moderately dilated left ventricular with a diffuse hypokinesia. Ejection fraction of 45%. Echodensity at the LV apex suggesting organized thrombus. Grade 3 left-ventricular diastolic dysfunction Right Ventricle Pacemaker/defibrillator wire in the right ventricle. Possibly normal RV size and ejection fraction Right Atrium Appears to be of normal size Left Atrium Markedly dilated left atrium. Left atrial end-systolic volume index of 118 mL/m squared Mitral Valve Severe mitral valve regurgitation. The regurgitant jet encircling the left atrium Aortic Valve No gross abnormalities noted Tricuspid Valve Moderate tricuspid valve regurgitation. Pulmonary hypertension with an estimated pulmonary artery peak systolic pressure of 52 mmHg Pulmonic Valve Mild pulmonary valve regurgitation. Pericardium Normal pericardium without effusion. Aorta Normal ascending aorta dimension. IVC Normal IVC dimension with <50% respiratory change of the inferior vena cava. CONCLUSIONS Moderately dilated left ventricular with a diffuse hypokinesia. Ejection fraction of 45%. Echodensity at the LV apex suggesting organized thrombus. Grade 3 left-ventricular diastolic dysfunction. Markedly dilated left atrium. Left atrial end-systolic volume index of 118 mL/m squared. Severe mitral valve regurgitation. The regurgitant jet encircling the left atrium Possibly normal RV size and ejection fraction. Pacemaker/defibrillator wire in the right ventricle. Moderate tricuspid valve regurgitation. Pulmonary hypertension with an estimated pulmonary artery peak systolic pressure of 52 mmHg. Mild pulmonary valve regurgitation. There is no pericardial effusion. Comparison with the previous study from 04/11/2020 is difficult because of the differences in technical quality. The LV ejection fraction appears to have improved but there is worsening of the mitral regurgitation and improvement in the tricuspid regurgitation Dr Fina Topete MD [facility] (Electronically Signed) Final Date: 08 May 2024 08:54 S
--- NOTE | 2024-05-07 15:13 | P.HP_ITS ---
Providers/Chief Complaint 2 Primary Care Provider: UMBERTO Zamorano Chief Complaint: Dizziness/Nausea History of Present Illness Sarah Curtis is a 44 year old female with past medical history of cardiomyopathy with congestive heart failure presented to the ER today because of dizziness that started today morning around 10 AM. She had few episodes which lasted for couple of seconds but for last 2 hours she has had persistent dizziness with getting worse on sitting up associated with nausea and vomiting. Getting some relief with closing eyes and not moving. Has not noticed any change in moving her head from 1 side to another. Denies any tinnitus. Does complain of recent right ear infection for which she was on antibiotic last week. Denies any recent changes in medications, diarrhea, falls, head injury. Review of Systems 2 General: Reports: 10 or more systems reviewed and unremarkable except in HPI and below Const: Denies: fever(s), chills, body aches, change in appetite, change in weight, malaise, night sweats, diaphoresis, change in sleep pattern, daytime sleepiness or snoring Eyes: Denies: change in vision, blurry vision, photophobia, eye discomfort or eye discharge ENMT: Denies: throat pain, enlarged tonsils, hoarseness, mouth pain, oral sores, dry mouth, tinnitus, nasal congestion or post nasal drip Card: Denies: chest pain, palpitations, irregular heart rhythm, edema, swelling of feet/ankles, lightheadedness, syncope, pre-syncope, dyspnea on exertion, orthopnea, leg pain with exertion or acrocyanosis Resp: Denies: dyspnea, productive cough, non-productive cough, wheezing, stridor, pain on inspiration, change in phlegm color, hemoptysis or chest congestion GI: Denies: abdominal pain, nausea, vomiting, hematemesis, coffee ground emesis, dysphagia, heartburn, diarrhea, constipation, bloating, GI cramping, change in bowel habits, pain on defecation, hematochezia or melena : Denies: flank pain, dysuria, urinary frequency, urinary urgency, urinary hesitancy, nocturia or hematuria Musc: Denies: neck pain, back pain, extremity pain, joint pain, joint swelling, joint redness, joint stiffness or limited range of motion Neuro: Denies: headache(s), numbness in extremities, weakness in extremities, sensory changes, lack of coordination, difficulty walking, frequent falls, dizziness, vertigo, confusion, Slurred speech present, difficulty communicating thoughts or seizure-like activity Psych: Denies: anxiety, depression, mood swings, panic attacks, hopelessness or irritability Endo: Denies: polyuria, polydipsia, tired all the time, cold intolerance, excessive sweating, flushing or heat intolerance Ke/Lymph: Denies: easy bruising or easy bleeding All/Imm: Denies: tongue swelling, facial swelling or acute wheezing Medications/Allergies Home Medications Medication Instructions Recorded Confirmed Last Taken Type apixaban 5 mg tablet (Eliquis) 5 mg PO BID #60 tabs 04/12/20 05/07/24 05/06/24 Rx magnesium L-lactate 84 mg 84 mg PO BID #60 tabs 04/12/20 05/07/24 05/06/24 Rx tablet,extended release (Magtab) diphenhydramine HCl 25 mg capsule 25 mg PO TID PRN ALLERGIES 04/28/24 05/07/24 Unknown History (Mariposaryl) insulin lispro 100 unit/mL 10.5 unit SUBCUT BID 04/28/24 05/07/24 05/06/24 History subcutaneous half-unit pen (Humalog Kishan KwikPen (U-100)) metoprolol tartrate 25 mg tablet 12.5 mg PO DAILY 04/28/24 05/07/24 05/07/24 History potassium chloride 20 mEq 20 meq PO BID 04/28/24 05/07/24 05/06/24 History tablet,extended release sacubitril 24 mg-valsartan 26 mg 1 tab PO BID 04/28/24 05/07/24 05/06/24 History tablet (Entresto) spironolactone 25 mg tablet 12.5 mg PO DAILY 04/28/24 05/07/24 05/06/24 History torsemide 20 mg tablet 40 mg PO DAILY 04/28/24 05/07/24 05/06/24 History dapagliflozin propanediol 5 mg 5 mg PO DAILY 05/07/24 05/07/24 05/06/24 History tablet (Farxiga) Allergies Allergy/AdvReac Type Severity Reaction Status Date / Time NSAIDS (Non-Steroidal Allergy Unknown Verified 04/28/24 09:01 Anti-Inflamma Penicillins Allergy ADR-Blurry Verified 04/28/24 09:01 Vision PFSH Acute 2 PFSH: Medical History Medication management Otitis media Tick bite Low left ventricular ejection fraction QT prolongation Intermittent atrial fibrillation Nonsustained ventricular tachycardia Abnormal nuclear stress test Atypical chest pain cardiomyopathy Asthma Pacemaker Heart failure Cardiomyopathy Surgical History AICD (automatic cardioverter/defibrillator) present S/P cholecystectomy H/O section Family History Other CAD (coronary artery disease) Diabetes Social History Smoking and tobacco/nicotine status: current every day tobacco/nicotine user cigarettes Packs smoked per day: 0.5 Alcohol intake: current Alcohol intake frequency: holidays/special occasions only Substance/Drug Use: current Substance/Drug use frequency: daily Household members: spouse and children Housing: House Marital status: Vitals/I&O/Wt Last Vital Signs Temp 98.3 F 05/07/24 11:38 Pulse 93 05/07/24 14:57 Resp 19 H 05/07/24 14:57 BP 109/76 05/07/24 14:57 Pulse Ox 94 05/07/24 14:57 O2 Del Method Room Air 05/07/24 14:00 05/07/24 05/07/24 05/07/24 06:59 14:59 22:59 Intake Total 500 / 500 Balance 500 / 500 Weight last 48 hrs Weight 99.79 kg Physical Exam 2 Narrative: General: No acute distress, AO x3, No nystagmus, anxious HEENT: PERRLA, pupils bilaterally equal and reactive Chest: Normal vesicular breath sounds, no added sounds, equal good air entry bilaterally CVS: S1-S2 regular, soft pansystolic murmur at the apex radiating to anterior axillary line, no tachycardia, no gallops, no rubs Abdomen: Soft, nontender, no organomegaly, bowel sounds present Neuro: No focal deficits, no facial deformity, AO x3, power 5/5 in all limbs Data 05/07/24 10:21 05/07/24 12:58 Other Labs: Radiology Impressions Head CT 05/07/24 11:41 IMPRESSION: 1. No evidence of intracranial hemorrhage or mass effect. 2. No acute intracranial findings. Head/Neck CTA 05/07/24 13:53 IMPRESSION: 1. 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 Recommend vascular surgery or cardiology consultation. 2. Otherwise normal head and neck CTA. Laboratory Results WBC 7.27 10^3/uL (3.29-11.43) 05/07/24 10:21 RBC 4.29 10^6/uL (3.85-5.65) 05/07/24 10:21 Hgb 13.40 g/dL (11.27-16.99) 05/07/24 10:21 Hct 39.9 % (36-47) 05/07/24 10:21 MCV 93.0 fl (85-98) 05/07/24 10:21 MCH 31.2 pg (27-33) 05/07/24 10:21 MCHC 33.6 g/dL (30-55) 05/07/24 10:21 RDW 13.3 % (12.1-15.1) 05/07/24 10:21 Plt Count 291 10^3/cmm (157-399) 05/07/24 10:21 MPV 10.6 fL (7.4-10.4) H 05/07/24 10:21 Neut % (Auto) 58.0 % 05/07/24 10:21 Lymph % (Auto) 32.6 % 05/07/24 10:21 [place] % (Auto) 5.6 % 05/07/24 10:21 Eos % (Auto) 2.9 % 05/07/24 10:21 Baso % (Auto) 0.6 % 05/07/24 10:21 Neut # (Auto) 4.22 10^3/uL (1.8-7.7) 05/07/24 10:21 Lymph # (Auto) 2.4 10^3/uL (0.8-4.8) 05/07/24 10:21 [place] # (Auto) 0.4 10^3/uL (0.2-0.9) 05/07/24 10:21 Eos # (Auto) 0.2 10^3/uL (0.0-0.8) 05/07/24 10:21 Baso # (Auto) 0.0 10^3/uL (0.0-0.1) 05/07/24 10:21 Nucleated RBC % (auto) 0 % 05/07/24 10:21 Nucleated RBCs # 0.0 /100WBC 05/07/24 10:21 Sodium 133 mmol/L (136-145) L 05/07/24 12:58 Potassium 4.2 mmol/L (3.5-5.1) 05/07/24 12:58 Chloride 100 mmol/L (98-107) 05/07/24 12:58 Carbon Dioxide 20 mmol/L (22-29) L 05/07/24 12:58 Anion Gap 17.2 (5-19) 05/07/24 12:58 BUN 12 mg/dL (6-20) 05/07/24 12:58 Creatinine 0.3 mg/dL (0.5-0.9) L 05/07/24 12:58 GFR Calculation 240.6 mL/min (90-130) H 05/07/24 12:58 Glucose 107 mg/dL (65-115) 05/07/24 12:58 Calculated Osmolality 276 mOsm/kg (285-295) L 05/07/24 12:58 Calcium 8.5 mg/dL (8.5-10.5) 05/07/24 12:58 Total Bilirubin 0.5 mg/dL (0.15-1.2) 05/07/24 12:58 AST 24 U/L (0-32) 05/07/24 12:58 ALT 28 U/L (0-33) 05/07/24 12:58 Alkaline Phosphatase 90 U/L (35-105) 05/07/24 12:58 Total Protein 6.6 g/dL (6.6-8.7) 05/07/24 12:58 Albumin 3.5 g/dL (3.5-5.2) 05/07/24 12:58 Globulin 3.1 g/dL (1.3-4.6) 05/07/24 12:58 Urine Opiates Screen Negative ng/mL (Negative) 05/07/24 15:44 Ur Barbiturates Screen Negative ng/mL (Negative) 05/07/24 15:44 Ur Phencyclidine Scrn Negative ng/mL (Negative) 05/07/24 15:44 Ur Amphetamines Screen Negative ng/mL (Negative) 05/07/24 15:44 U Benzodiazepines Scrn Negative ng/mL (Negative) 05/07/24 15:44 Urine Cocaine Screen Negative ng/mL (Negative) 05/07/24 15:44 U Marijuana (THC) Screen Positive ng/mL (Negative) H 05/07/24 15:44 A&P Assessment and plan (1) Vertigo: BPPV versus posterior circulation stroke. Appreciate CT and CT CTA head and neck done in the ER. Cannot do MRI as patient has history of ICD placement. Start on aspirin 81 mg daily, continue home dose of Eliquis. Check A1c, lipid panel. Start on atorvastatin 80 mg daily. Physical therapy evaluation for possible Onur's maneuver. Out of bed to chair. Fall precautions. Meclizine 25 mg 3 times daily. If needed can use IV Ativan 1 mg every 6 hours as needed. Zofran as needed Monitor electrolytes, check urine drug screen, TSH, vitamin B12 levels Telemetry. Check orthostatics. ICD interrogation to rule out arrhythmias (2) cardiomyopathy: No concerns for acute exacerbation for now. Check echocardiogram. Last echocardiogram 03/15/2020 showed EF of 20% with global LV hypokinesia with moderate to severe MR, moderate to severe TR. Follows up with [facility]. Continue with home dose of metoprolol, Entresto. Hold off on Lasix and spironolactone for now. Gentle IV hydration with NS at 50 cc/h. (3) Systolic and diastolic CHF, acute on chronic: (4) AICD (automatic cardioverter/defibrillator) present: Plan Type 2 diabetes mellitus: Check A1c. Insulin sliding scale at low-dose protocol. Carb consistent cardiac diet Full code Eliquis will be sufficient for DVT prophylaxis Famotidine for PUD prophylaxis Attestations 2 Medical Necessity Statement*: Admission under observation for further evaluation and management of significant dizziness in a patient with history of cardiomyopathy with EF of 20% Diagnoses Vertigo R42 cardiomyopathy O90.3 Systolic and diastolic CHF, acute on chronic I50.43 AICD (automatic cardioverter/defibrillator) present Z95.810
[2024-05-07] MEDS: sodium chloride 0.9% 1,000 ML 50 ML IV (15:47)
[2024-05-07 16:17] LABS: Amphetamines Screen Urine Negative (Negative); Barbiturates Screen Urine Negative (Negative); Benzodiazepines Screen Urine Negative (Negative); Cocaine Screen Urine Negative (Negative); Opiate Screen Urine Negative (Negative); PCP Screen Urine Negative (Negative); THC Screen Urine Positive (Negative)
[2024-05-07 16:32] LABS: Add Urine Microscopic? NO; Charge for UA Resulting for Rev
[2024-05-07 16:48] LABS: Bilirubin Urine Neg (Negative); Blood Urine Neg (Negative); Glucose Urine UA Norm (Normal); Ketones Urine Negative (Negative); Leukocyte Esterase Urine Negative (Negative); Nitrate Urine Negative (Negative); Protein Urine Neg (Negative); Urine Appearance Clear (CLEAR); Urine Color Yellow (Yellow); Urobilinogen Urine Norm (Negative); pH Urine 5 (5-7)
[2024-05-07 17:04] LABS: Procalcitonin 0.07 ng/mL (0-0.5); Thyroid Stimulating Hormone 5.72 uIU/mL (0.27-4.20); Vitamin B12 276 pg/mL (232-1245)
[2024-05-07 17:16] LABS: Iron 95 ug/dL (37-145); Percent Saturation 43.3 % (20-50); Total Iron Binding Capacity 219 mcg/dl; Unsaturated Iron Binding 124 ug/dL (112-347)
[2024-05-07] MEDS: meclizine 25 mg tablet PO (18:12)
[2024-05-07] MEDS: apixaban 5 mg Tablet PO (18:12)
[2024-05-07] MEDS: famotidine 20 mg Tablet PO (18:12)
[2024-05-07] MEDS: sacubitril/valsartan 24-26 mg Tablet 1 EACH PO (18:12)
[2024-05-07] MEDS: magnesium lactate 84 mg Tablet PO (18:12)
[2024-05-07 18:17] LABS: Glucose Point of Care 97 mg/dL (70-110)
[2024-05-07 21:49] LABS: Glucose Point of Care 168 mg/dL (70-110)
--- NOTE | 2024-05-07 23:11 | PC.NURSE ---
Assumed pt care at this time, pt lying in bed with eyes closed, respirations even and non labored. Call light is within reach.
[2024-05-07] MEDS: insulin lispro 100 unit/1 mL SUBCUT (23:23)
[2024-05-08] VITALS (9 sets, daily range): BP systolic 92–131; BP diastolic 62–83; PULSE 83–102; RESP 15–18; TEMP 36.5–36.7; O2SAT 96–98
--- NOTE | 2024-05-08 00:18 | PC.NURSE ---
Non-sustained vtach - pt had an 8 beat run of v tach at approx. 2100. She was asymptomatic at the time, JULIANE Cheek notified Dr. Jacobsen, no new orders received. Strip printed and placed in the chart.
[2024-05-08 05:21] LABS: Basophils % 0.7 %; Eosinophils # 0.2 10^3/uL (0.0-0.8); Hematocrit 40.9 % (36-47); Lymphocytes # 2.1 10^3/uL (0.8-4.8); Lymphocytes % 37.6 %; Mean Corpuscular Hemoglobin 31.2 pg (27-33); Mean Corpuscular Volume 97.4 fl (85-98); Mean Platelet Volume 9.8 fL (7.4-10.4); Monocytes # 0.3 10^3/uL (0.2-0.9); Monocytes % 5.8 %; Neutrophils # 2.84 10^3/uL (1.8-7.7); Neutrophils % 51.5 %; Nucleated Red Blood Cells % 0 %; Platelet Count 310 10^3/cmm (157-399); Red Cell Distribution Width 13.5 % (12.1-15.1); White Blood Count 5.51 10^3/uL (3.29-11.43)
[2024-05-08 05:45] LABS: Chol HDL Ratio 13.83 mg/dL (0.0-4.40); Cholesterol 332 mg/dL (0-200); HDL Cholesterol 24 mg/dL (60-100)
[2024-05-08 05:51] LABS: Estmated Average Glucose 151; Hemoglobin A1C 6.9 % (4.0-6.0)
[2024-05-08 05:58] LABS: Alanine Aminotransferase 20 U/L (0-33); Albumin Level 3.2 g/dL (3.5-5.2); Alkaline Phosphatase 84 U/L (35-105); Blood Urea Nitrogen 11 mg/dL (6-20); Calcium 8.3 mg/dL (8.5-10.5); Carbon Dioxide 14 mmol/L (22-29); Chloride 102 mmol/L (98-107); Creatinine Clr Calc Pharmacy 182.6807; Globulin 3.4 g/dL (1.3-4.6); Glomerular Filtration Rate 133.4 mL/min (90-130); Glucose 134 mg/dL (65-115); Osmolality Calculated 271 mOsm/kg (285-295); Phosphorus 3.6 mg/dL (2.5-4.5); Slide Review Slide Review Perform; Sodium 130 mmol/L (136-145); Total Bilirubin 0.3 mg/dL (0.15-1.2); Total Protein 6.6 g/dL (6.6-8.7)
[2024-05-08 05:59] LABS: Folate Level 10.7 ng/mL (4.8-37.3)
[2024-05-08 06:00] LABS: Anion Gap 18.3 (5-19); Aspartate Amino Transferase 17 U/L (0-32); Potassium 4.3 mmol/L (3.5-5.1)
[2024-05-08 06:06] LABS: Triglycerides 1169 mg/dL (0-150)
[2024-05-08 06:10] LABS: Glucose Point of Care 134 mg/dL (70-110)
[2024-05-08 06:18] LABS: LDL Cholesterol Direct 90 mg/dL (0-100)
[2024-05-08] MEDS: meclizine 25 mg tablet PO (08:34)
[2024-05-08] MEDS: magnesium lactate 84 mg Tablet PO (08:34)
[2024-05-08] MEDS: apixaban 5 mg Tablet PO (08:34)
[2024-05-08] MEDS: famotidine 20 mg Tablet PO (08:36)
[2024-05-08 10:24] LABS: Lipase 29 U/L (13-60)
[2024-05-08] MEDS: sacubitril/valsartan 24-26 mg Tablet 1 EACH PO (10:34)
[2024-05-08] MEDS: metoprolol tartrate 25 mg Tablet 12.5 MG PO (10:34)
--- NOTE | 2024-05-08 10:58 | PM.DCS ---
Discharge Providers Date of Admission: 05/07/24 16:45 Date of Discharge: May 08, 2024 Attending Provider at Admission: Emiliano Parisi MD Attending Provider at Discharge: Emiliano Parisi MD Primary Care Provider: UMBERTO Zamorano Diagnoses at Discharge Discharge Diagnosis (1) Vertigo: Status: Acute (2) cardiomyopathy: Status: Acute (3) Systolic and diastolic CHF, acute on chronic: Status: Acute (4) AICD (automatic cardioverter/defibrillator) present: Status: Acute Reason for Visit Reason for Visit: Dizziness/Nausea Hospital Course Hospital Course Sarah Curtis is a 44 year old female with past medical history of cardiomyopathy with congestive heart failure presented to the ER today because of dizziness that started today morning around 10 AM. She had few episodes which lasted for couple of seconds but for last 2 hours she has had persistent dizziness with getting worse on sitting up associated with nausea and vomiting. Getting some relief with closing eyes and not moving. Has not noticed any change in moving her head from 1 side to another. Denies any tinnitus. Does complain of recent right ear infection for which she was on antibiotic last week. Denies any recent changes in medications, diarrhea, falls, head injury. Patient was admitted to the hospital further evaluation and management of dizziness. She was found to have borderline soft blood pressures. She was started on mild IV gentle hydration. Her blood pressure remained stable after that. Her dizziness also improved. Patient worked well with physical therapy. Was able to ambulate from bed to bathroom by herself. Echocardiogram was done which showed EF of 45% with grade 3 diastolic dysfunction, echodensity in LV suggesting organized thrombus, dilated LA with severe MR, moderate TR, PASP 52 mmHg. She has been discharged in hemodynamically stable condition on oral metoprolol, Entresto with advised to hold off on spironolactone and change torsemide to 20 mg oral daily as needed for body weight increased by 5 pounds. During hospitalization she was found to have uncontrolled hypertriglyceridemia and elevated cholesterol for which atorvastatin 20 mg daily and gemfibrozil has been started. 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 Physical Exam Narrative: General: No acute distress, AO x3, No nystagmus, anxious HEENT: PERRLA, pupils bilaterally equal and reactive Chest: Normal vesicular breath sounds, no added sounds, equal good air entry bilaterally CVS: S1-S2 regular, soft pansystolic murmur at the apex radiating to anterior axillary line, no tachycardia, no gallops, no rubs Abdomen: Soft, nontender, no organomegaly, bowel sounds present Neuro: No focal deficits, no facial deformity, AO x3, power 5/5 in all limbs Discharge Data Studies Completed and Pending Completed Studies During Hospitalization Category Date Time Status CT head wo con* [id number] Stat Cat Scan 05/07/24 11:41 Completed CTA head neck [CT angio headneck* [id number]] Stat Cat Scan 05/07/24 13:53 Completed CV. echo complete* [id number] Routine Ultrasound 05/07/24 15:12 Completed Radiology Impressions Head CT 05/07/24 11:41 IMPRESSION: 1. No evidence of intracranial hemorrhage or mass effect. 2. No acute intracranial findings. Head/Neck CTA 05/07/24 13:53 IMPRESSION: 1. 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 Recommend vascular surgery or cardiology consultation. 2. Otherwise normal head and neck CTA Echocardiogram: CONCLUSIONS Moderately dilated left ventricular with a diffuse hypokinesia. Ejection fraction of 45%. Echodensity at the LV apex suggesting organized thrombus. Grade 3 left-ventricular diastolic dysfunction. Markedly dilated left atrium. Left atrial end-systolic volume index of 118 mL/m squared. Severe mitral valve regurgitation. The regurgitant jet encircling the left atrium Possibly normal RV size and ejection fraction. Pacemaker/defibrillator wire in the right ventricle. Moderate tricuspid valve regurgitation. Pulmonary hypertension with an estimated pulmonary artery peak systolic pressure of 52 mmHg. Mild pulmonary valve regurgitation. There is no pericardial effusion. Comparison with the previous study from 04/11/2020 is difficult because of the differences in technical quality. The LV ejection fraction appears to have improved but there is worsening of the mitral regurgitation and improvement in the tricuspid regurgitation. Dr Fina Topete MD [facility] (Electronically Signed) Final Date: 08 May 2024 08:54 Laboratory Results WBC 5.51 10^3/uL (3.29-11.43) 05/08/24 04:37 RBC 4.20 10^6/uL (3.85-5.65) 05/08/24 04:37 Hgb 13.10 g/dL (11.27-16.99) 05/08/24 04:37 Hct 40.9 % (36-47) 05/08/24 04:37 MCV 97.4 fl (85-98) 05/08/24 04:37 MCH 31.2 pg (27-33) 05/08/24 04:37 MCHC 32.0 g/dL (30-55) 05/08/24 04:37 RDW 13.5 % (12.1-15.1) 05/08/24 04:37 Plt Count 310 10^3/cmm (157-399) 05/08/24 04:37 MPV 9.8 fL (7.4-10.4) 05/08/24 04:37 Neut % (Auto) 51.5 % 05/08/24 04:37 Lymph % (Auto) 37.6 % 05/08/24 04:37 Navarro % (Auto) 5.8 % 05/08/24 04:37 Eos % (Auto) 4.0 % 05/08/24 04:37 Baso % (Auto) 0.7 % 05/08/24 04:37 Neut # (Auto) 2.84 10^3/uL (1.8-7.7) 05/08/24 04:37 Lymph # (Auto) 2.1 10^3/uL (0.8-4.8) 05/08/24 04:37 Navarro # (Auto) 0.3 10^3/uL (0.2-0.9) 05/08/24 04:37 Eos # (Auto) 0.2 10^3/uL (0.0-0.8) 05/08/24 04:37 Baso # (Auto) 0.0 10^3/uL (0.0-0.1) 05/08/24 04:37 Nucleated RBC % (auto) 0 % 05/08/24 04:37 Nucleated RBCs # 0.0 /100WBC 05/08/24 04:37 Sodium 130 mmol/L (136-145) L 05/08/24 04:37 Potassium 4.3 mmol/L (3.5-5.1) 05/08/24 04:37 Chloride 102 mmol/L (98-107) 05/08/24 04:37 Carbon Dioxide 14 mmol/L (22-29) L 05/08/24 04:37 Anion Gap 18.3 (5-19) 05/08/24 04:37 BUN 11 mg/dL (6-20) 05/08/24 04:37 Creatinine 0.5 mg/dL (0.5-0.9) 05/08/24 04:37 GFR Calculation 133.4 mL/min (90-130) H 05/08/24 04:37 Glucose 134 mg/dL (65-115) H 05/08/24 04:37 POC Glucose 134 mg/dL (70-110) H 05/08/24 06:05 Estimat Average Glucose 151 05/08/24 04:37 Hemoglobin A1c 6.9 % (4.0-6.0) H 05/08/24 04:37 Calculated Osmolality 271 mOsm/kg (285-295) L 05/08/24 04:37 Calcium 8.3 mg/dL (8.5-10.5) L 05/08/24 04:37 Phosphorus 3.6 mg/dL (2.5-4.5) 05/08/24 04:37 Magnesium 2.0 mg/dL (1.7-2.3) 05/08/24 04:37 Iron 95 ug/dL (37-145) 05/07/24 12:58 TIBC 219 mcg/dl 05/07/24 12:58 % Saturation 43.3 % (20-50) 05/07/24 12:58 Unsat Iron Binding 124 ug/dL (112-347) 05/07/24 12:58 Total Bilirubin 0.3 mg/dL (0.15-1.2) 05/08/24 04:37 AST 17 U/L (0-32) 05/08/24 04:37 ALT 20 U/L (0-33) 05/08/24 04:37 Alkaline Phosphatase 84 U/L (35-105) 05/08/24 04:37 Total Protein 6.6 g/dL (6.6-8.7) 05/08/24 04:37 Albumin 3.2 g/dL (3.5-5.2) L 05/08/24 04:37 Globulin 3.4 g/dL (1.3-4.6) 05/08/24 04:37 Triglycerides 1169 mg/dL (0-150) H 05/08/24 04:37 Cholesterol 332 mg/dL (0-200) H 05/08/24 04:37 LDL Cholesterol Direct 90 mg/dL (0-100) 05/08/24 04:37 LDL Cholesterol, Calc Not Reportable 05/08/24 04:37 HDL Cholesterol 24 mg/dL (60-100) L 05/08/24 04:37 LDL/HDL Ratio Not Reportable 05/08/24 04:37 Cholesterol/HDL Ratio 13.83 mg/dL (0.0-4.40) H 05/08/24 04:37 Lipase 29 U/L (13-60) 05/08/24 04:37 Vitamin B12 276 pg/mL (232-1245) 05/07/24 12:58 Folate 10.7 ng/mL (4.8-37.3) 05/08/24 04:37 Procalcitonin 0.07 ng/mL (0-0.5) 05/07/24 12:58 TSH 5.72 uIU/mL (0.27-4.20) H 05/07/24 12:58 Urine Color Yellow (Yellow) 05/07/24 15:44 Urine Appearance Clear (CLEAR) 05/07/24 15:44 Urine pH 5 (5-7) 05/07/24 15:44 Ur Specific [place] 1.030 (1.005-1.030) 05/07/24 15:44 Urine Protein Neg (Negative) 05/07/24 15:44 Urine Glucose (UA) Norm (Normal) 05/07/24 15:44 Urine Ketones Negative (Negative) 05/07/24 15:44 Urine Blood Neg (Negative) 05/07/24 15:44 Urine Nitrate Negative (Negative) 05/07/24 15:44 Urine Bilirubin Neg (Negative) 05/07/24 15:44 Urine Urobilinogen Norm mg/dL (Negative) 05/07/24 15:44 Ur Leukocyte Esterase Negative (Negative) 05/07/24 15:44 Urine Opiates Screen Negative ng/mL (Negative) 05/07/24 15:44 Ur Barbiturates Screen Negative ng/mL (Negative) 05/07/24 15:44 Ur Phencyclidine Scrn Negative ng/mL (Negative) 05/07/24 15:44 Ur Amphetamines Screen Negative ng/mL (Negative) 05/07/24 15:44 U Benzodiazepines Scrn Negative ng/mL (Negative) 05/07/24 15:44 Urine Cocaine Screen Negative ng/mL (Negative) 05/07/24 15:44 U Marijuana (THC) Screen Positive ng/mL (Negative) H 05/07/24 15:44 Vitals Last Vital Signs Temp 98.0 F 05/08/24 08:00 Pulse 93 05/08/24 08:00 Resp 16 05/08/24 08:00 BP 106/74 05/08/24 10:36 Pulse Ox 98 05/08/24 08:00 O2 Del Method Room Air 05/08/24 08:00 Discharge Plan Discharge Patient Disposition: Home Condition: Stable Prescriptions: New atorvastatin 40 mg Tablet 20 mg PO BEDTIME Qty: 30 0RF aspirin 81 mg Tablet,Delayed Release (Dr/Ec) 81 mg PO DAILY Qty: 30 0RF meclizine 25 mg Tablet 25 mg PO TID PRN (Reason: dizziness) Qty: 15 0RF gemfibrozil 600 mg Tablet 600 mg PO BID Qty: 60 0RF Continued metoprolol tartrate 25 mg tablet 12.5 mg PO DAILY diphenhydramine HCl [Benadryl] 25 mg capsule 25 mg PO TID PRN (Reason: ALLERGIES) potassium chloride 20 mEq tablet extended release 20 meq PO BID Entresto 24-26 mg tablet 1 tab PO BID insulin lispro [Humalog Kishan KwikPen U-100] 100 unit/mL insulin pen, half-unit 10.5 unit SUBCUT BID magnesium L-lactate [Magtab] 84 mg Tablet Extended Release 84 mg PO BID Qty: 60 0RF Eliquis 5 mg Tablet 5 mg PO BID Qty: 60 0RF Farxiga 5 mg Tablet 5 mg PO DAILY Changed torsemide 20 mg tablet 20 mg PO DAILY PRN (Reason: shoertness of breath) Qty: 15 0RF No Action spironolactone 25 mg tablet 12.5 mg PO DAILY Discharge Orders: Discharge Order (Routine); Ordered 05/08/24 Ordered By: Emiliano Parisi Referrals: SONYA Mckeon, PROGRAM COORDINATOR EXECUTIVE EDUCATION [Primary Care Provider] - 7-10 days (We have notified your physician's clinic of the need for a follow-up appointment to be scheduled. If you have not heard from them within the next 2 business days, please call them directly. ) Discharge Diet: Cardiac and Diabetic Discharge Activity: Resume usual activity Patient Instructions: Gemfibrozil (By mouth), Aspirin (By mouth), Meclizine (By mouth), Atorvastatin (By mouth), Vertigo (ED), Opioid Safety Activity Restrictions/Additional Instructions: Restrict fluid intake to less than 1500 cc/50 ounces, salt intake to less than 2 g daily. Advised to check his weight daily at home. Is advised that weight today would be the dry weight and if body weight increases by around 5 pounds, patient is to take an extra dose of torsemide daily till body weight comes down to weight today. If not able to come down to dry body weight in 1 week, then is to call cardiology office for further recommendations. Patient was counseled in detail to take medications regularly as prescribed. Please check your blood pressure daily and maintain a blood pressure diary and follow-up with a primary care provider within next 2 weeks. Goal blood pressure should be less than 140/90 mmHg. Discharge Attestations Time Spent in Discharge Care*: greater than 30 min Specific Discharge Activities: educating patient, educating and/or supporting family/caregiver, discussing with pcp/other providers, discussing with geriatric case manager/social workers/dc planners, documenting/other paperwork and evaluating patient/reviewing data Status at Discharge: Cognitive status at discharge: cognitively intact, Behavioral status at discharge: cooperative, Functional status at discharge: independent ambulation, Overall status at discharge: patient is back to baseline Quality Metrics Clinical Quality Measures [ No reported AMI, CVA or VTE this stay] Coding Level of Care Code 03206 Total time (in minutes) for Discharge: 60 Diagnoses Vertigo R42 cardiomyopathy O90.3 Systolic and diastolic CHF, acute on chronic I50.43 AICD (automatic cardioverter/defibrillator) present Z95.810
[2024-05-08 11:13] LABS: Glucose Point of Care 146 mg/dL (70-110)
--- NOTE | 2024-05-08 13:11 | PC.NURSE ---
Patient refused aspirin, gemfibrozol and insulin. Will take when she gets home and eats something there.
--- NOTE | 2024-05-08 13:52 | PC.NURSE ---
Discussed discharge with patient and family. Discussed new medications, changed medications and stopped medications. Discussed follow up appointments as well. Verbalized understanding of all discussions.
== END 2024-05-08 13:15 | disposition home or self-care (01) ==
LOC: ER 14:50 → MEDSURG 17:52
PROVIDERS: Admitting Provider Student in an Organized Health Care Education/Training Program; Emergency Provider Emergency Medicine; PCP Nurse Practitioner Family; Visit Provider Student in an Organized Health Care Education/Training Program
DX: R42 Dizziness and giddiness (principal); O90.3 Peripartum cardiomyopathy; I50.43 Acute on chronic combined systolic (congestive) and diastolic (congestive) heart failure; Z95.810 Presence of automatic (implantable) cardiac defibrillator; F17.210 Nicotine dependence, cigarettes, uncomplicated
CPT/HCPCS: 36415; 36416; 70450; 70496; 70498; 80053; 80061; 80306; 81003; 82607; 82746; 82962; 83036; 83540; 83550; 83690; 83721; 83735; 84100; 84145; 84443; 85025; 93005; 93306; 94664; 96361; 96372; 96374; 96375; 97161; 99285; G0378; J1815; J2405; J7030; J7040; J8597; Q9967

== ENCOUNTER 2024-12-02 16:56 | Inpatient (IN) | payer SELFPAY ==
[2024-12-02] VITALS (12 sets, daily range): BP systolic 62–104; BP diastolic 43–81; PULSE 15–137; RESP 16–24; TEMP 36.6; O2SAT 94–98; BMI 36.5; BMI 32.1
--- NOTE | 2024-12-02 17:04 | XRR_ITS ---
PROCEDURE INFORMATION: Exam: XR Chest Exam date and time: 12/02/2024 5:11 PM Age: 44 years old Clinical indication: Other: Palpitations; Prior surgery; Surgery date: 6+ months; Surgery type: Pacer TECHNIQUE: Imaging protocol: Radiologic exam of the chest. Views: 1 view. COMPARISON: CR XR chest 1V portable [id number] 04/23/2024 6:39 PM FINDINGS: Tubes, catheters and devices: There is stable intact pacemaker/AICD hardware. Small metallic device projects over the cardiac silhouette which was not present on the prior exam. Lungs: Unremarkable. No consolidation. Pleural spaces: Unremarkable. No pleural effusion. No pneumothorax. Heart/Mediastinum: Unremarkable. No cardiomegaly. Bones/joints: Unremarkable. XR/XR chest 1V portable [id number] IMPRESSION: No acute findings.
--- NOTE | 2024-12-02 17:04 | ECG_ITS ---
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 Measurements Intervals [place] Rate: 143 P: 0 [place]: 0 QRS: 59 QRSD: 113 T: 0 QT: 310 QTc: 480 Interpretive Statements ATRIAL FIBRILLATION WITH RAPID VENTRICULAR RESPONSE MODERATE INTRAVENTRICULAR CONDUCTION DELAY [110+ ms QRS DURATION] NONSPECIFIC ST & T-WAVE ABNORMALITY Compared to ECG 05/07/2024 11:43:56 T-wave abnormality now present Sinus rhythm no longer present Electronically Signed On 12-02-2024 21:12:11 MELTER OPERATOR by Isidro Meléndez M.D. [email or web address]
--- NOTE | 2024-12-02 17:11 | ED_ITS ---
HPI - Chest Pain 2 General: Chief Complaint: Chest Pain Stated Complaint: Chest pain Time Seen by Provider: 12/02/24 16:57 History of Present Illness: 44-year-old female brought in via EMS. Patient has a significant history of coronary megaly with a potential cardiac myopathy with atrial fibs. She was recently seen at [facility] about 2 weeks ago and her medications for atrial fibs were switched to amiodarone 200 mg daily for rate control. She reports that around noon today she has noticed her heart rates been really rapid. That she gets dizzy especially when she gets up. Patient reports that she feels like she has had some flulike symptoms over the last couple days which is generalized bodyaches and not feeling well. Patient is on a 2 L fluid restriction along with torsemide and spironolactone. Patient was brought in via EMS. Patient received a small dose of Cardizem 10 mg in route. She did have a decrease in her blood pressure and received 250 mL bolus. Patient presents with mild rapid atrial for with RVR on EKG with heart rates around 130s. Associated symptoms: Reports palpitations; Deny abdominal pain, dyspnea, fever(s), nausea or vomiting Related Data Home Medications Medication Instructions Recorded Confirmed diphenhydramine HCl 25 mg capsule 25 mg PO TID PRN ALLERGIES 04/28/24 05/15/24 (Benadryl) insulin lispro 100 unit/mL 10.5 unit SUBCUT BID 04/28/24 05/15/24 subcutaneous half-unit pen (Humalog Kishan KwikPen (U-100)) metoprolol tartrate 25 mg tablet 12.5 mg PO DAILY 04/28/24 05/15/24 potassium chloride 20 mEq 20 meq PO BID 04/28/24 05/15/24 tablet,extended release sacubitril 24 mg-valsartan 26 mg 1 tab PO BID 04/28/24 05/15/24 tablet (Entresto) spironolactone 25 mg tablet 12.5 mg PO DAILY 04/28/24 05/15/24 dapagliflozin propanediol 5 mg 5 mg PO DAILY 05/07/24 05/15/24 tablet (Farxiga) Previous Rx's Medication Instructions Recorded apixaban 5 mg tablet (Eliquis) 5 mg PO BID #60 tabs 04/12/20 magnesium L-lactate 84 mg 84 mg PO BID #60 tabs 04/12/20 tablet,extended release (Magtab) aspirin 81 mg tablet,delayed 81 mg PO DAILY #30 tabs 05/08/24 release atorvastatin 40 mg tablet 20 mg (1/2 x 40 mg) PO BEDTIME #30 05/08/24 tabs gemfibrozil 600 mg tablet 600 mg PO BID #60 tabs 05/08/24 meclizine 25 mg tablet 25 mg PO TID PRN dizziness #15 tabs 05/08/24 torsemide 20 mg tablet 20 mg PO DAILY PRN shoertness of 05/08/24 breath #15 tabs Allergies Allergy/AdvReac Type Severity Reaction Status Date / Time NSAIDS (Non-Steroidal Allergy Unknown Verified 05/15/24 15:42 Anti-Inflamma Penicillins Allergy ADR-Blurry Verified 05/15/24 15:42 Vision Review of Systems 2 Const: Reports: body aches and malaise; Denies: fever(s) Card: Reports: palpitations, irregular heart rhythm and lightheadedness Resp: Denies: dyspnea or productive cough GI: Denies: abdominal pain, nausea or vomiting : Denies: flank pain or difficulty voiding Neuro: Reports: dizziness; Denies: headache(s) PFSH ED 2 PFSH: Medical History Medication management Otitis media Tick bite Low left ventricular ejection fraction QT prolongation Intermittent atrial fibrillation Nonsustained ventricular tachycardia Abnormal nuclear stress test Atypical chest pain cardiomyopathy Asthma Pacemaker Heart failure Cardiomyopathy Surgical History AICD (automatic cardioverter/defibrillator) present S/P cholecystectomy H/O section Family History Other CAD (coronary artery disease) Diabetes Social History Smoking and tobacco/nicotine status: current every day tobacco/nicotine user cigarettes Packs smoked per day: 0.5 Alcohol intake: current Alcohol intake frequency: holidays/special occasions only Substance/Drug Use: current Substance/Drug use frequency: daily Household members: spouse and children Housing: House Marital status: Physical Exam 2 Const: COMMON NORMALS: no acute distress and patient oriented x3 OTHER: Not feeling well Resp: COMMON NORMALS: normal respiratory effort, No retractions and No use of accessory muscles Cardio: RATE: tachycardic RHYTHM: abnormal rhythm GI: COMMON NORMALS: Soft to palpation and non-tender PALPATION: Yes Soft to palpation Neuro: COMMON NORMALS: patient oriented x3, no focal motor deficits and no sensory deficits noted Psych: COMMON NORMALS: mental status grossly normal and cooperative Skin: COMMON NORMALS: no rashes or lesions noted GENERAL SKIN EXAM: no rashes or lesions noted Course 2 Vital Signs: Vital signs: Vital Signs Temperature 97.9 F 12/02/24 17:01 Pulse Rate 116 H 12/02/24 19:45 Respiratory Rate 20 H 12/02/24 19:30 Blood Pressure 99/81 12/02/24 19:45 Pulse Oximetry 94 12/02/24 19:45 Oxygen Delivery Me thod Room Air 12/02/24 19:45 MDM - Chest Pain Medical Decision Making Patient's diagnostic studies were reviewed and interpreted by me. Patient has no significant findings on her labs. Patient does continue to have atrial fibs. Patient was initially given 150 amiodarone IV with no significant response. I did call and discussed with cardiology on-call Dr. Topete who recommended 250 mcg of digoxin. Patient did have improvement of her rate down to around 1 10-1 15 and her blood pressure remained stable. Patient will be admitted to the hospitalist for further inpatient management and cardiology consultation. I did discuss with her mission here versus transfer to [place] as she chose to remain here for further treatment. Lab Data 12/02/24 17:40 12/02/24 17:40 Radiology Impressions Chest X-Ray 12/02/24 17:04 IMPRESSION: No acute findings. Laboratory Results WBC 8.77 10^3/uL (3.29-11.43) 12/02/24 17:40 RBC 4.85 10^6/uL (3.85-5.65) 12/02/24 17:40 Hgb 14.60 g/dL (11.27-16.99) 12/02/24 17:40 Hct 42.9 % (36-47) 12/02/24 17:40 MCV 88.5 fl (85-98) 12/02/24 17:40 MCH 30.1 pg (27-33) 12/02/24 17:40 MCHC 34.0 g/dL (30-55) 12/02/24 17:40 RDW 13.4 % (12.1-15.1) 12/02/24 17:40 Plt Count 293 10^3/cmm (157-399) 12/02/24 17:40 MPV 9.8 fL (7.4-10.4) 12/02/24 17:40 Neut % (Auto) 65.4 % 12/02/24 17:40 Lymph % (Auto) 26.3 % 12/02/24 17:40 Jerome % (Auto) 5.7 % 12/02/24 17:40 Eos % (Auto) 1.5 % 12/02/24 17:40 Baso % (Auto) 0.6 % 12/02/24 17:40 Neut # (Auto) 5.74 10^3/uL (1.8-7.7) 12/02/24 17:40 Lymph # (Auto) 2.3 10^3/uL (0.8-4.8) 12/02/24 17:40 Jerome # (Auto) 0.5 10^3/uL (0.2-0.9) 12/02/24 17:40 Eos # (Auto) 0.1 10^3/uL (0.0-0.8) 12/02/24 17:40 Baso # (Auto) 0.1 10^3/uL (0.0-0.1) 12/02/24 17:40 Nucleated RBC % (auto) 0 % 12/02/24 17:40 Nucleated RBCs # 0.0 /100WBC 12/02/24 17:40 Sodium 134 mmol/L (136-145) L 12/02/24 17:40 Potassium 3.7 mmol/L (3.5-5.1) 12/02/24 17:40 Chloride 96 mmol/L (98-107) L 12/02/24 17:40 Carbon Dioxide 22 mmol/L (22-29) 12/02/24 17:40 Anion Gap 19.7 (5-19) H 12/02/24 17:40 BUN 15 mg/dL (6-20) 12/02/24 17:40 Creatinine 0.4 mg/dL (0.5-0.9) L 12/02/24 17:40 GFR Calculation 172.6 mL/min (90-130) H 12/02/24 17:40 Glucose 140 mg/dL (65-115) H 12/02/24 17:40 Calculated Osmolality 281 mOsm/kg (285-295) L 12/02/24 17:40 Calcium 8.9 mg/dL (8.5-10.5) 12/02/24 17:40 Magnesium 1.9 mg/dL (1.7-2.3) 12/02/24 17:40 Total Bilirubin 0.5 mg/dL (0.15-1.2) 12/02/24 17:40 AST 17 U/L (0-32) 12/02/24 17:40 ALT 15 U/L (0-33) 12/02/24 17:40 Alkaline Phosphatase 97 U/L (35-105) 12/02/24 17:40 Troponin T Baseline 12 ng/L (0-10) H 12/02/24 17:40 Total Protein 7.5 g/dL (6.6-8.7) 12/02/24 17:40 Albumin 4.0 g/dL (3.5-5.2) 12/02/24 17:40 Globulin 3.5 g/dL (1.3-4.6) 12/02/24 17:40 Coronavirus 229E (PCR) Not detected (NOT DETECT) 12/02/24 17:45 Influenza Type A Ag negative (Negative) 12/02/24 17:45 Influenza Type B Ag negative (Negative) 12/02/24 17:45 SARS-CoV-2 (PCR) Not detected (NOT DETECT) 12/02/24 17:45 All radiology interpretation(s) finalized by discharge Critical Care Time 2 Critical Care Time: Critical Care Time: Yes Total Critical Care Time: 60 Attestation: The high probability of a clinically significant, sudden or life threatening deterioration, as referenced in this documentation, required my full and direct attention, intervention and personal management. The critical care time shown is in addition to time spent performing any reported separately billable procedures and includes the following: [x] Data and vital sign review and interpretation [x ] Patient assessment, examination and intervention [x] Medication orders and management [x] Patient/Family updates as able [x] Care Coordination and Documentation. Discharge Plan Discharge Patient Disposition: Admitted As Inpatient Admit Provider: Gilbert Jorgensen Clinical Impression: Cardiomyopathy, Intermittent atrial fibrillation, AICD (automatic cardioverter/defibrillator) present Condition: Stable Coding Level of Care Code ED Counseling Program Leader for Gi Vega
--- NOTE | 2024-12-02 17:26 | PC.NURSE ---
Metoprolol 5mg ordered by Dr Carrasquillo. Pt reports that she was taken off this medication recently d/t tanking her bp . Spoke with Dr Carrasquillo and orders changed to give her a 250ml ns bolus of the iv fluids ems started and med change to amio.
[2024-12-02] MEDS: amiodarone 150 MG/100 ML PREMIX 400 MG IV (17:29)
[2024-12-02 17:53] LABS: Basophils # 0.1 10^3/uL (0.0-0.1); Basophils % 0.6 %; Eosinophils # 0.1 10^3/uL (0.0-0.8); Eosinophils % 1.5 %; Hematocrit 42.9 % (36-47); Lymphocytes # 2.3 10^3/uL (0.8-4.8); Lymphocytes % 26.3 %; Mean Corpuscular Hemoglobin 30.1 pg (27-33); Mean Corpuscular Volume 88.5 fl (85-98); Mean Platelet Volume 9.8 fL (7.4-10.4); Monocytes # 0.5 10^3/uL (0.2-0.9); Monocytes % 5.7 %; Neutrophils # 5.74 10^3/uL (1.8-7.7); Neutrophils % 65.4 %; Nucleated Red Blood Cells % 0 %; Platelet Count 293 10^3/cmm (157-399); Red Blood Count 4.85 10^6/uL (3.85-5.65); Red Cell Distribution Width 13.4 % (12.1-15.1); White Blood Count 8.77 10^3/uL (3.29-11.43)
[2024-12-02] MEDS: prochlorperazine 10 mg/2 mL Inj 5 MG IVP (17:59)
[2024-12-02 18:13] LABS: Troponin(5th) Baseline 12 ng/L (0-10)
[2024-12-02 18:14] LABS: Influenza A by IFA negative (Negative); Influenza B by IFA negative (Negative)
[2024-12-02 18:24] LABS: Alkaline Phosphatase 97 U/L (35-105); Blood Urea Nitrogen 15 mg/dL (6-20); Calcium 8.9 mg/dL (8.5-10.5); Carbon Dioxide 22 mmol/L (22-29); Chloride 96 mmol/L (98-107); Globulin 3.5 g/dL (1.3-4.6); Glomerular Filtration Rate 172.6 mL/min (90-130); Glucose 140 mg/dL (65-115); Magnesium 1.9 mg/dL (1.7-2.3); Osmolality Calculated 281 mOsm/kg (285-295); Sodium 134 mmol/L (136-145); Total Bilirubin 0.5 mg/dL (0.15-1.2); Total Protein 7.5 g/dL (6.6-8.7)
[2024-12-02 18:42] LABS: Creatinine Clr Calc Pharmacy 229.5902
[2024-12-02 18:43] LABS: Anion Gap 19.7 (5-19); Potassium 3.7 mmol/L (3.5-5.1)
--- NOTE | 2024-12-02 19:28 | P.HP_ITS ---
Providers/Chief Complaint 2 Primary Care Provider: UMBERTO Zamorano Chief Complaint: Chest pain History of Present Illness Sarah Curtis is a 44 year old female with history of chronic A-fib, mitral valve clip secondary to mitral regurgitation, pacemaker/AICD since 2012 cardiac arrest V. tach, peripartum cardiomyopathy, A-fib, chronic anticoagulation, left ventricle thrombus, chronic anticoagulation, recently was at [facility] from where she was transferred to [facility] for possible EP eval, cardiac cath was done which was unremarkable no stents were placed as per the patient, patient's amiodarone was adjusted, she was sent home coming in with chief complaint of chest discomfort and palpitations. Patient is stating that she developed cardiomyopathy after her last , she remained well for a decade and then started having cardiac issues, has never been cardioverted, has been compliant with her medications, does not smoke or drink alcohol. Today she started experiencing chest pain with palpitations, patient did not want to go to [place] & decided to come to [facility]. In the ER she was given metoprolol, amiodarone without much success with A-fib RVR Dr. Topete was consulted who recommended digoxin low-dose secondary to creatinine, I have given her p.o. potassium to keep potassium at goal she received 250 mcg of IV digoxin along amiodarone bolus, I have started on amiodarone drip At the time of my evaluation she is not complain of chest pain but her heart rate is around 130s A-fib RVR Magnesium 1.9 Review of Systems 2 Const: Denies: fever(s) Eyes: Denies: change in vision ENMT: Denies: throat pain Card: Reports: palpitations Resp: Denies: dyspnea GI: Reports: nausea : Denies: flank pain Skin/Breast: Denies: rash Medications/Allergies Home Medications Medication Instructions Recorded Confirmed Last Taken Type apixaban 5 mg tablet (Eliquis) 5 mg PO BID #60 tabs 04/12/20 05/15/24 05/06/24 Rx magnesium L-lactate 84 mg 84 mg PO BID #60 tabs 04/12/20 05/15/24 05/06/24 Rx tablet,extended release (Magtab) diphenhydramine HCl 25 mg capsule 25 mg PO TID PRN ALLERGIES 04/28/24 05/15/24 Unknown History (Benadryl) insulin lispro 100 unit/mL 10.5 unit SUBCUT BID 04/28/24 05/15/24 05/06/24 History subcutaneous half-unit pen (Humalog Junior Johnson (U-100)) metoprolol tartrate 25 mg tablet 12.5 mg PO DAILY 04/28/24 05/15/24 05/07/24 History potassium chloride 20 mEq 20 meq PO BID 04/28/24 05/15/24 05/06/24 History tablet,extended release sacubitril 24 mg-valsartan 26 mg 1 tab PO BID 04/28/24 05/15/24 05/06/24 History tablet (Entresto) spironolactone 25 mg tablet 12.5 mg PO DAILY 04/28/24 05/15/24 05/06/24 History dapagliflozin propanediol 5 mg 5 mg PO DAILY 05/07/24 05/15/24 05/06/24 History tablet (Farxiga) aspirin 81 mg tablet,delayed 81 mg PO DAILY #30 tabs 05/08/24 05/15/24 Unknown Rx release atorvastatin 40 mg tablet 20 mg (1/2 x 40 mg) PO BEDTIME #30 05/08/24 05/15/24 Unknown Rx tabs gemfibrozil 600 mg tablet 600 mg PO BID #60 tabs 05/08/24 05/15/24 Unknown Rx meclizine 25 mg tablet 25 mg PO TID PRN dizziness #15 tabs 05/08/24 05/15/24 Unknown Rx torsemide 20 mg tablet 20 mg PO DAILY PRN shoertness of 05/08/24 05/15/24 05/06/24 Rx breath #15 tabs Allergies Allergy/AdvReac Type Severity Reaction Status Date / Time NSAIDS (Non-Steroidal Allergy Unknown Verified 05/15/24 15:42 Anti-Inflamma Penicillins Allergy ADR-Blurry Verified 05/15/24 15:42 Vision PFSH Acute 2 PFSH: Medical History Medication management Otitis media Tick bite Low left ventricular ejection fraction QT prolongation Intermittent atrial fibrillation Nonsustained ventricular tachycardia Abnormal nuclear stress test Atypical chest pain cardiomyopathy Asthma Pacemaker Heart failure Cardiomyopathy Surgical History AICD (automatic cardioverter/defibrillator) present S/P cholecystectomy H/O section Family History Other CAD (coronary artery disease) Diabetes Social History Smoking and tobacco/nicotine status: current every day tobacco/nicotine user cigarettes Packs smoked per day: 0.5 Alcohol intake: current Alcohol intake frequency: holidays/special occasions only Substance/Drug Use: current Substance/Drug use frequency: daily Household members: spouse and children Housing: House Marital status: Vitals/I&O/Wt Last Vital Signs Temp 97.9 F 12/02/24 17:01 Pulse 129 H 12/02/24 18:02 Resp 16 12/02/24 18:02 BP 104/66 12/02/24 18:02 Pulse Ox 95 12/02/24 18:02 O2 Del Method Room Air 12/02/24 18:02 12/02/24 12/02/24 12/02/24 06:59 14:59 22:59 Intake Total 100 / 100 Balance 100 / 100 Weight last 48 hrs Weight 108.862 kg Physical Exam 2 Narrative: Patient laying supine A-fib RVR heart rate 130s GCS 15 Nonfocal neuroexam Abdomen soft Looks euvolemic Currently on room air No active chest pain Pleasant and cooperative Variable S1-S2 Data 12/02/24 17:40 12/02/24 17:40 A&P Assessment and plan (1) Cardiomyopathy: Qualifiers: Cardiomyopathy type: unspecified Qualified Code(s): I42.9 - Cardiomyopathy, unspecified (2) cardiomyopathy: (3) Systolic and diastolic CHF, acute on chronic: (4) Severe mitral regurgitation: (5) AICD (automatic cardioverter/defibrillator) present: (6) Pacemaker: (7) Intermittent atrial fibrillation: (8) QT prolongation: Plan A-fib with RVR Continue chronic anticoagulation Start patient on digoxin as per cardiology Low-dose digoxin given 250 mcg, next dose after 6 hours Continue low-dose metoprolol, will need optimization on AV ninfa blocking agent Consulted Dr. Topete Monitor QTc Currently on amiodarone drip Recent cardiac cath at [facility] was unremarkable as per the patient Will request records Improved ejection fraction with underlying peripartum cardiomyopathy Status post AICD/pacemaker History of cardiac arrest secondary to V. tach 2013 Left ventricular thrombus Currently on Eliquis Not on Entresto anymore Blood pressure 103/60 mmHg, Clinically does not look fluid overloaded, euvolemic, hold off on diuretics Cardiac consistent carb diet insulin with sliding scale Will keep her on p.o. magnesium supplement Hypokalemia: Replenished Full code Attestations 2 Medical Necessity Statement*: More than 2 midnights anticipated Diagnoses Cardiomyopathy, unspecified type I42.9 Cardiomyopathy type: unspecified cardiomyopathy O90.3 Systolic and diastolic CHF, acute on chronic I50.43 Severe mitral regurgitation I34.0 AICD (automatic cardioverter/defibrillator) present Z95.810 Pacemaker Z95.0 Intermittent atrial fibrillation I48.0 QT prolongation R94.31
[2024-12-02 19:42] LABS: Alanine Aminotransferase 15 U/L (0-33); Aspartate Amino Transferase 17 U/L (0-32)
[2024-12-02 19:51] LABS: Adenovirus Not Detected (NOT DETECT); Chlamydia Pneumoniae Not Detected (NOT DETECT); Coronavirus 229E,HKU1,NL63,OC4 Not Detected (NOT DETECT); Human Metapneumovirus Not Detected (NOT DETECT); Human Rhinovirus/Enterovirus Not Detected (NOT DETECT); Influenza A Not Detected (NOT DETECT); Influenza A H1 Not Detected (NOT DETECT); Influenza A H1-2009 Not Detected (NOT DETECT); Influenza A H3 Not Detected (NOT DETECT); Influenza B Not Detected (NOT DETECT); Mycoplasma Pneumoniae Not Detected (NOT DETECT); Parainfluenza Virus Type 1 Not Detected (NOT DETECT); Parainfluenza Virus Type 2 Not Detected (NOT DETECT); Parainfluenza Virus Type 3 Not Detected (NOT DETECT); Parainfluenza Virus Type 4 Not Detected (NOT DETECT); Respiratory Syncytial Virus A Not Detected (NOT DETECT); Respiratory Syncytial Virus B Not Detected (NOT DETECT); SARS-COV-2 Not Detected (NOT DETECT)
[2024-12-02] MEDS: digoxin 250 mcg/ml INJ 2 mL IVP (20:03)
--- NOTE | 2024-12-02 20:31 | ECG_ITS ---
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 Measurements Intervals [place] Rate: 114 P: 0 [place]: 0 QRS: 60 QRSD: 113 T: 89 QT: 361 QTc: 497 Interpretive Statements ATRIAL FIBRILLATION WITH RAPID VENTRICULAR RESPONSE MODERATE INTRAVENTRICULAR CONDUCTION DELAY [105+ ms QRS DURATION, 80+ ms Q/S IN V1/V2, NO Q AND 60+ ms R IN I/aVL/V5/V6] NONSPECIFIC ST & T-WAVE ABNORMALITY Compared to ECG 12/02/2024 16:59:48 No significant changes Electronically Signed On 12-02-2024 21:17:03 COUNSELOR MANAGER by Isidro Meléndez M.D. [id number]
[2024-12-02 20:36] LABS: Troponin 5 2HR 14.75 ng/L (0-10); Troponin 5 2HR Delta 2.75 ABS# (0-10)
--- NOTE | 2024-12-02 20:40 | PC.NURSE ---
pt vs bp 99/58, dr. houser notified and okayed pt to go to [facility].
--- NOTE | 2024-12-02 21:05 | PC.NURSE ---
pr report called to Keisha on [facility] at 2100.
[2024-12-02 22:36] LABS: Glucose Point of Care 149 mg/dL (70-110)
--- NOTE | 2024-12-02 23:36 | PC.NURSE ---
pt rate and rhythm is controlled. per physician we will hold amio drip at this time.
[2024-12-03] VITALS (9 sets, daily range): BP systolic 90–113; BP diastolic 52–81; PULSE 76–94; RESP 12–21; TEMP 36.6–36.7; O2SAT 94–98
[2024-12-03] MEDS: potassium chloride ER 20 mEq Tablet 40 MEQ PO (00:24)
[2024-12-03] MEDS: insulin lispro 100 unit/1 mL SUBCUT ×3 (00:26→12:32)
[2024-12-03 03:57] LABS: Basophils # 0.1 10^3/uL (0.0-0.1); Basophils % 0.8 %; Eosinophils # 0.2 10^3/uL (0.0-0.8); Eosinophils % 2.5 %; Lymphocytes # 2.7 10^3/uL (0.8-4.8); Lymphocytes % 35.5 %; Mean Corpuscular Hemoglobin 29.3 pg (27-33); Mean Corpuscular Volume 88.9 fl (85-98); Mean Platelet Volume 9.7 fL (7.4-10.4); Monocytes # 0.6 10^3/uL (0.2-0.9); Monocytes % 7.3 %; Neutrophils # 4.04 10^3/uL (1.8-7.7); Neutrophils % 53.5 %; Nucleated Red Blood Cells % 0 %; Platelet Count 260 10^3/cmm (157-399); Red Cell Distribution Width 13.5 % (12.1-15.1); White Blood Count 7.55 10^3/uL (3.29-11.43)
[2024-12-03 05:06] LABS: Creatinine Clr Calc Pharmacy 95.5512
[2024-12-03 05:49] LABS: Anion Gap 19.6 (5-19); Blood Urea Nitrogen 17 mg/dL (6-20); Carbon Dioxide 22 mmol/L (22-29); Chloride 95 mmol/L (98-107); Glomerular Filtration Rate 133.4 mL/min (90-130); Glucose 97 mg/dL (65-115); Magnesium 2.1 mg/dL (1.7-2.3); Osmolality Calculated 277 mOsm/kg (285-295); Sodium 133 mmol/L (136-145)
[2024-12-03 05:50] LABS: Potassium 3.6 mmol/L (3.5-5.1)
[2024-12-03 06:26] LABS: Glucose Point of Care 161 mg/dL (70-110)
--- NOTE | 2024-12-03 08:53 | P.CONIM_ITS ---
Documented by User: UMBERTO Claudio 12/03/24 14:55 Providers/Reason For Consult 2 Consulting Physician/Specialty*: Dr Topete, cardiology Reason for Consult*: Atrial fibrillation with RVR Requesting Physician: Dr Jorgensen Attending Physician: Bob Brown MD Primary Care Provider: UMBERTO Zamorano History of Present Illness History of Present Illness Sarah Curtis is a 44 year old female presenting with episodes of atrial fibrillation with RVR. She reported experiencing significant chest pain and pressure, while walking her dogs yesterday, heart rate was subjectively rapid at that time. Approximately one month ago, the patient was hospitalized initally at [facility] and transferred to [facility] for electrophysiology and transplant evaluation. We do not have those records. She had a MitraClip placed in August. Since discharge, she reports her heart rate fluctuating extensively, ranging from 30 to 180 beats per minute, particularly intense during arrhythmia episodes with accompanying palpitations described as pounding or skipping beats and slamming down with force. She managed these episodes by lying down to regulate. She presented to the emergency room yesterday evening, was given diltiazem by EMS prehospital. EKG on arrival to the ER showed atrial fibrillation with RVR, ventricular rate 143bpm. Amiodarone 150mg IV given with no significant reduction in heart rate. She then received digoxin 250mcg IV, after which she converted to sinus rhythm. No further doses of IV digoxin or metoprolol were given, heart rate stayed below 100 bpm. Baseline troponin 12, 120 minute was 14.75. Viral panel negative for influenza or COVID. She was initally diagnosed with cardiomyopathy in 2012, ventricular arrhythmia and had AICD placed at that time. LVEF was 20% in 2019, it is currently 24% by TTE in October. Coronary angiogram has been performed at [facility], with no significant stenosis per patient report. The patient mentions taking torsemide 20mg twice a day at home, and was started on amiodarone 200mg daily by [facility]ology before she was transferred to [facility] for further evaluation. She has not missed any doses of medication. She is anticoagulated with apixaban 5mg twice daily. She also takes levothyroxine 125mcg daily. No TSH tested lately. Recent weight measurements indicated stability, her usual weight at home is 210 pounds. No recent fever was observed, though she reports non-specific body aches for 3 days prior to this episode. Blood pressure has been well controlled at home. No chest pain currently, and none since heart rate returned to normal last night. Records received from [facility] and reviewed 12/03/24 1300: Right and left heart catheterization performed 11/18/24: Right atrial pressure 9 mmHg mean, PAP 48/28/35 mmHg, pulmonary capillary wedge pressure 22 mmHg at end expiration, 30 mmHg with V wave, cardiac output 4.18 L/min (4.48 thermodilution), cardiac index 1.94 (Krissy). Discharged on spironolactone 12.5mg daily, losartan 12.5mg daily, Farxiga 10mg daily, amiodarone 200mg daily, levothyroxine 12.5mcg daily. Plan to reassess TSH and T4 on 12/20/24 per [facility]. Review of Systems 2 Const: Denies: fever(s), chills, change in weight, fatigue or diaphoresis Eyes: Denies: change in vision ENMT: Denies: epistaxis Card: Denies: chest pain, palpitations, irregular heart rhythm, edema, syncope, pre-syncope, dyspnea on exertion, orthopnea or leg pain with exertion Resp: Denies: dyspnea, productive cough or wheezing GI: Denies: nausea, vomiting, hematemesis, hematochezia or melena : Denies: hematuria Musc: Denies: extremity swelling Ke/Lymph: Denies: easy bruising or easy bleeding Medications/Allergies Home Medications Medication Instructions Recorded Confirmed Last Taken Type apixaban 5 mg tablet (Eliquis) 5 mg PO BID #60 tabs 04/12/20 12/02/24 12/02/24 09:30 Rx diphenhydramine HCl 25 mg capsule 25 mg PO TID PRN ALLERGIES 04/28/24 12/02/24 Unknown History (Benadryl) insulin lispro 100 unit/mL 15 unit SUBCUT DAILY 04/28/24 12/02/24 12/01/24 18:00 History subcutaneous half-unit pen (Humalog Kishan KwikPen (U-100)) spironolactone 25 mg tablet 12.5 mg PO DAILY 04/28/24 12/02/24 12/02/24 09:30 History dapagliflozin propanediol 5 mg 5 mg PO DAILY 05/07/24 12/02/24 12/02/24 09:30 History tablet (Farxiga) amiodarone 200 mg tablet 200 mg PO DAILY 12/02/24 12/02/24 12/02/24 09:30 History levothyroxine 25 mcg tablet 12.5 mcg PO DAILY 12/02/24 12/02/24 12/02/24 03:30 History losartan 25 mg tablet 12.5 mg PO DAILY 12/02/24 12/02/24 12/02/24 09:30 History torsemide 20 mg tablet 40 mg PO BID 12/02/24 12/02/24 12/02/24 09:30 History digoxin 125 mcg (0.125 mg) tablet 125 mcg PO DAILY 30 days #30 tabs 12/03/24 Unknown Rx nitrofurantoin 100 mg PO BID 5 days #10 caps 12/03/24 Unknown Rx monohydrate/macrocrystals 100 mg capsule (Macrobid) Allergies Allergy/AdvReac Type Severity Reaction Status Date / Time Alpha-Gal Allergy Unknown Unknown Verified 12/03/24 05:18 (Zzjopghad-Pnqgy-2,3-Gala NSAIDS (Non-Steroidal Allergy Unknown Verified 05/15/24 15:42 Anti-Inflamma Penicillins Allergy ADR-Blurry Verified 05/15/24 15:42 Vision Current Medications Generic Name Dose Route Start Last Admin Trade Name Freq PRN Reason Stop Dose Admin Insulin Human Lispro 0 unit 12/02/24 22:21 12/03/24 00:26 Insulin Lispro 100 Unit/1 Ml SUBCUT 4 unit WM&BEDTIME UNA Administration Protocol PFSH Acute 2 PFSH: Medical History Medication management Otitis media Tick bite Low left ventricular ejection fraction QT prolongation Intermittent atrial fibrillation Nonsustained ventricular tachycardia Abnormal nuclear stress test Atypical chest pain cardiomyopathy Asthma Pacemaker Heart failure Cardiomyopathy Surgical History AICD (automatic cardioverter/defibrillator) present S/P cholecystectomy H/O section Family History Other CAD (coronary artery disease) Diabetes Social History Smoking and tobacco/nicotine status: current every day tobacco/nicotine user cigarettes Packs smoked per day: 0.5 Alcohol intake: current Alcohol intake frequency: holidays/special occasions only Substance/Drug Use: current Substance/Drug use frequency: daily Household members: spouse and children Housing: House Marital status: Vitals/I&O/Wt Last Vital Signs Temp 98.0 F 12/03/24 04:00 Pulse 77 12/03/24 05:12 Resp 14 12/03/24 04:00 BP 90/52 12/03/24 04:00 Pulse Ox 94 12/03/24 04:00 O2 Del Method Room Air 12/03/24 04:00 12/02/24 12/03/24 12/03/24 22:59 06:59 14:59 Intake Total 100 / 400 300 / 400 Balance 100 / 400 300 / 400 Weight last 48 hrs Weight 229 lb 9.6 oz Weight 211 lb 4.8 oz Weight 240 lb Physical Exam 2 Const: COMMON NORMALS: no acute distress and patient oriented x3 GENERAL APPEARANCE: cooperative and comfortable ORIENTATION/CONSCIOUSNESS: Yes awake, Yes oriented to person, Yes oriented to place and Yes oriented to time Chest: COMMONS NORMALS: normal inspection of the chest and normal palpation of entire chest wall CHEST: Yes Symmetrical chest wall rise Resp: COMMON NORMALS: normal respiratory effort, No retractions, No use of accessory muscles and clear to auscultation bilaterally EFFORT & INSPECTION: Yes symmetric chest movement AUSCULTATION: clear to auscultation bilaterally Cardio: COMMON NORMALS: regular rate, regular rhythm, S2 normal heart sound present, No gallops present (Cardio), No clicks present (Cardio) and No rub (Cardio) RATE: regular rate RHYTHM: regular rhythm HEART SOUNDS: S2 normal heart sound present and Murmur heart sound present systolic Radiation: to the neck Intensity: III/ PERIPHERAL PULSES: radial pulses present Extremity: COMMON NORMALS: no pedal edema Neuro: COMMON NORMALS: patient oriented x3 and moves all extremities S ENSORIUM/ORIENTATION: Yes oriented to person, Yes oriented to place and Yes oriented to time Data 12/03/24 03:33 12/03/24 03:33 A&P Assessment and plan (1) Cardiomyopathy: Qualifiers: Cardiomyopathy type: unspecified Qualified Code(s): I42.9 - Cardiomyopathy, unspecified (2) AICD (automatic cardioverter/defibrillator) present: Interrogated device today. 11 months battery life, VVI mode, lower rate 40 bpm. Treatment turned off for VT. (3) Nonsustained ventricular tachycardia: (4) Intermittent atrial fibrillation: Currently in sinus rhythm, good rate control. Continue amiodarone 200mg daily, digoxin 125mcg daily. Will request records and discuss with [facility] for further medication adjustments and discussion for possible catheter based treatment of arrhythmia. If she is able to ambulate without difficulty and has no recurrence of arrhythmia, can consider discharge. (5) Systolic and diastolic CHF, acute on chronic: Heart failure currently appears compensated. No torsemide or Lasix currently. Plan Plan currently to continue amiodarone 200mg daily, as well as digoxin 125mcg daily and have her follow up in the cardiology clinic with the cardiology AVIONICS MECHANIC in 10 days. No further testing required. She may discharge home when acceptable with hospitalist. Coding Level of Care Code 95153 Diagnoses Cardiomyopathy, unspecified type I42.9 Cardiomyopathy type: unspecified AICD (automatic cardioverter/defibrillator) present Z95.810 Nonsustained ventricular tachycardia I47.2 Intermittent atrial fibrillation I48.0 Systolic and diastolic CHF, acute on chronic I50.43 Documented by User: Fina Topete MD 12/03/24 17:59 Medications/Allergies Home Medications Medication Instructions Recorded Confirmed Last Taken Type apixaban 5 mg tablet (Eliquis) 5 mg PO BID #60 tabs 04/12/20 12/02/24 12/02/24 09:30 Rx diphenhydramine HCl 25 mg capsule 25 mg PO TID PRN ALLERGIES 04/28/24 12/02/24 Unknown History (Benadryl) insulin lispro 100 unit/mL 15 unit SUBCUT DAILY 04/28/24 12/02/24 12/01/24 18:00 History subcutaneous half-unit pen (Humalog Junior Johnson (U-100)) spironolactone 25 mg tablet 12.5 mg PO DAILY 04/28/24 12/02/24 12/02/24 09:30 History dapagliflozin propanediol 5 mg 5 mg PO DAILY 05/07/24 12/02/24 12/02/24 09:30 History tablet (Farxiga) amiodarone 200 mg tablet 200 mg PO DAILY 12/02/24 12/02/24 12/02/24 09:30 History levothyroxine 25 mcg tablet 12.5 mcg PO DAILY 12/02/24 12/02/24 12/02/24 03:30 History losartan 25 mg tablet 12.5 mg PO DAILY 12/02/24 12/02/24 12/02/24 09:30 History torsemide 20 mg tablet 40 mg PO BID 12/02/24 12/02/24 12/02/24 09:30 History digoxin 125 mcg (0.125 mg) tablet 125 mcg PO DAILY 30 days #30 tabs 12/03/24 Unknown Rx nitrofurantoin 100 mg PO BID 5 days #10 caps 12/03/24 Unknown Rx monohydrate/macrocrystals 100 mg capsule (Macrobid) Allergies Allergy/AdvReac Type Severity Reaction Status Date / Time Alpha-Gal Allergy Unknown Unknown Verified 12/03/24 05:18 (Htsdwzirf-Kagda-6,3-Gala NSAIDS (Non-Steroidal Allergy Unknown Verified 05/15/24 15:42 Anti-Inflamma Penicillins Allergy ADR-Blurry Verified 05/15/24 15:42 Vision PFSH Acute 2 PFSH: Medical History Medication management Otitis media Tick bite Low left ventricular ejection fraction QT prolongation Intermittent atrial fibrillation Nonsustained ventricular tachycardia Abnormal nuclear stress test Atypical chest pain cardiomyopathy Asthma Pacemaker Heart failure Cardiomyopathy Surgical History AICD (automatic cardioverter/defibrillator) present S/P cholecystectomy H/O section Family History Other CAD (coronary artery disease) Diabetes Social History Smoking and tobacco/nicotine status: current every day tobacco/nicotine user cigarettes Packs smoked per day: 0.5 Alcohol intake: current Alcohol intake frequency: holidays/special occasions only Substance/Drug Use: current Substance/Drug use frequency: daily Household members: spouse and children Housing: House Marital status: Data 12/03/24 03:33 12/03/24 03:33 A&P Assessment and plan (1) Cardiomyopathy: Qualifiers: Cardiomyopathy type: unspecified Qualified Code(s): I42.9 - Cardiomyopathy, unspecified (2) AICD (automatic cardioverter/defibrillator) present: (3) Nonsustained ventricular tachycardia: (4) Intermittent atrial fibrillation: (5) Systolic and diastolic CHF, acute on chronic: Plan Plan currently to continue amiodarone 200mg daily, as well as digoxin 125mcg daily and have her follow up in the cardiology clinic with the cardiology AVIONICS MECHANIC in 10 days. No further testing required. She may discharge home when acceptable with hospitalist. I independently interviewed and examined the patient. Reviewed the medical records and discussed the recommendations with Elysia Roper and with the primary attending Dr. JEFF Topete Coding Level of Care Code 10586 Diagnoses Cardiomyopathy, unspecified type I42.9 Cardiomyopathy type: unspecified AICD (automatic cardioverter/defibrillator) present Z95.810 Nonsustained ventricular tachycardia I47.2 Intermittent atrial fibrillation I48.0 Systolic and diastolic CHF, acute on chronic I50.43
[2024-12-03] MEDS: digoxin 125 mcg Tablet PO (09:26)
[2024-12-03] MEDS: magnesium oxide 400 mg tablet PO ×2 (09:26→16:38)
[2024-12-03] MEDS: aspirin 81 mg EC Tablet PO (09:31)
[2024-12-03] MEDS: apixaban 5 mg Tablet PO (09:31)
--- NOTE | 2024-12-03 09:34 | PC.CHAP ---
Pastoral Care Encounter/Spiritual Assessment Type of Contact [] Declined evp business development visit [] Patient/Family/Request visit [] Outpatient visit [] Follow-up visit [] Physician referral [] Code/Alert [x] Routine visit [] Staff referral [] Actively dying [] Patient sleeping [] Family support [] [] Out of room [] Palliative care [] [] Receiving care in room [] Pre-surgical visit [] Trauma [] Long length of stay [] ICU visit [] Other: Relational/Emotional Strength [x] Patient feels connected with others/family/visitors/staff [] Distress [] Loneliness/isolation [] Abandonment Spirituality of Patient [x] Person of Mini [] Attends Islam of their Mini [x] Believes in Prayer [] Reads Bible or Cheondoism materials [] There are Spiritual issues to be addressed Product Distribution Specialist Interventions [x] Prayer [x] Active listening [] Non-anxious presence [x] Spiritual/emotional support [] Crisis/trauma care [] Spiritual counseling [] Bereavement support [] Provided bereavement packet [] Provided Bible/devotional materials [] Provided toy/stuffed animal, coloring book to patient or family member [] Provided Communion [] Anointing/[place] [] Salvation [x] Completed spiritual assessment [] Other: Impact on Illness or Injury [] Angry [] Fearful [] Anxious [] Often cries [] Exhaustion [] Unable to work [] Unable to attend quaker [] Unable to walk/stand [] Unable to read [] Unable to drive [] Unable to eat/drink [] Unable to sleep [] Unable to be with family [] Patient intubated [] Other: Summary Time spent with patient 5 min
[2024-12-03] MEDS: morphine IR 15 mg Tablet PO ×2 (09:36→16:38)
--- NOTE | 2024-12-03 09:58 | ECG_ITS ---
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 Measurements Intervals [place] Rate: 81 P: 85 TN: 199 QRS: 41 QRSD: 115 T: 26 QT: 388 QTc: 451 Interpretive Statements SINUS RHYTHM LEFT VENTRICULAR HYPERTROPHY AND ST-T CHANGE [VOLTAGE CRITERIA PLUS ST/T ABNORMALITY] Compared to ECG 12/02/2024 20:31:50 Left ventricular hypertrophy now present ST (T wave) deviation now present Atrial fibrillation no longer present Intraventricular conduction delay no longer present T-wave abnormality no longer present Electronically Signed On 12-03-2024 17:24:25 OUTBOUND SALES ADVISOR by Fina Topete M.D. [id number]
[2024-12-03 10:22] LABS: Bilirubin Urine Negative (Negative); Blood Urine Trace (Negative); Glucose Urine UA 3+ (Normal); Ketones Urine Negative (Negative); Leukocyte Esterase Urine Negative (Negative); Nitrate Urine Negative (Negative); Protein Urine Negative (Negative); Specific Gravity, Urine 1.028 (1.005-1.030); Urine Appearance Cloudy (CLEAR); Urine Color Yellow (Yellow); Urobilinogen Urine 0.2 mg/dL (Negative)
[2024-12-03 10:27] LABS: Add Urine Microscopic? YES; Bacteria Urine 4+ /hpf; Hyaline Casts Urine 0.81 /lpf; RBC Urine 0-2 /hpf (0-2); Squamous Epithelial Cell Urine 0-5 /hpf (0-5); WBC Urine 21-50 /hpf (0-5)
[2024-12-03 10:39] LABS: Add Urine Culture? Yes
[2024-12-03 12:37] LABS: Glucose Point of Care 155 mg/dL (70-110)
--- NOTE | 2024-12-03 14:40 | P.DS_ITS ---
Discharge Providers Date of Admission: 12/02/24 19:31 Date of Discharge: December 03, 2024 Attending Provider at Admission: Gilbert Jorgensen MD Attending Provider at Discharge: Bob Brown MD Primary Care Provider: UMBERTO Zamorano Diagnoses at Discharge Discharge Diagnosis (1) Cardiomyopathy: Status: Acute Qualifiers: Cardiomyopathy type: unspecified Qualified Code(s): I42.9 - Cardiomyopathy, unspecified (2) AICD (automatic cardioverter/defibrillator) present: Status: Acute (3) Nonsustained ventricular tachycardia: Status: Acute (4) Intermittent atrial fibrillation: Status: Acute (5) Systolic and diastolic CHF, acute on chronic: Status: Acute Reason for Visit Reason for Visit: Chest pain Hospital Course Hospital Course Sarah Curtis is a 44 year old female with history of chronic A-fib, mitral valve clip secondary to mitral regurgitation, pacemaker/AICD since 2012 cardiac arrest V. tach, peripartum cardiomyopathy, Atrial fibrillation, chronic anticoagulation, chronic anticoagulation, recently was at [facility] from where she was transferred to [facility] for possible EP eval, cardiac cath was done which was unremarkable no stents were placed as per the patient, patient's amiodarone was adjusted, she was sent home coming in with chief complaint of chest discomfort and palpitations. patient was admitted with A-fib with RVR, received one dose of digoxin, converted to normal sinus rhythm, discharged on home amiodarone, continue home medications, follow up with cardiolgy as outpatient. Physical Exam Const: COMMON NORMALS: no acute distress and patient oriented x3 Resp: COMMON NORMALS: normal respiratory effort, No retractions, No use of accessory muscles and clear to auscultation bilaterally AUSCULTATION: clear to auscultation bilaterally Cardio: COMMON NORMALS: regular rate, regular rhythm, S1 normal heart sound present and S2 normal heart sound present RATE: regular rate RHYTHM: regular rhythm HEART SOUNDS: S1 normal heart sound present and S2 normal heart sound present GI: COMMON NORMALS: Normal to inspection, nondistended, normoactive bowel sounds present and non-tender Extremity: COMMON NORMALS: no pedal edema Neuro: COMMON NORMALS: patient oriented x3 Psych: COMMON NORMALS: mental status grossly normal Discharge Data Studies Completed and Pending Completed Studies During Hospitalization Category Date Time Status XR chest 1V portable [id number] Stat Exams 12/02/24 17:04 Completed Pending at discharge Category Date Time Status TSH Receptor Binding Antibody Routine Lab 12/03/24 13:33 Received Urine Culture Stat Lab 12/03/24 09:46 Received Radiology Impressions Chest X-Ray 12/02/24 17:04 IMPRESSION: No acute findings. Laboratory Results WBC 7.55 10^3/uL (3.29-11.43) 12/03/24 03:33 RBC 4.50 10^6/uL (3.85-5.65) 12/03/24 03:33 Hgb 13.20 g/dL (11.27-16.99) 12/03/24 03:33 Hct 40.0 % (36-47) 12/03/24 03:33 MCV 88.9 fl (85-98) 12/03/24 03:33 MCH 29.3 pg (27-33) 12/03/24 03:33 MCHC 33.0 g/dL (30-55) 12/03/24 03:33 RDW 13.5 % (12.1-15.1) 12/03/24 03:33 Plt Count 260 10^3/cmm (157-399) 12/03/24 03:33 MPV 9.7 fL (7.4-10.4) 12/03/24 03:33 Neut % (Auto) 53.5 % 12/03/24 03:33 Lymph % (Auto) 35.5 % 12/03/24 03:33 [place] % (Auto) 7.3 % 12/03/24 03:33 Eos % (Auto) 2.5 % 12/03/24 03:33 Baso % (Auto) 0.8 % 12/03/24 03:33 Neut # (Auto) 4.04 10^3/uL (1.8-7.7) 12/03/24 03:33 Lymph # (Auto) 2.7 10^3/uL (0.8-4.8) 12/03/24 03:33 [place] # (Auto) 0.6 10^3/uL (0.2-0.9) 12/03/24 03:33 Eos # (Auto) 0.2 10^3/uL (0.0-0.8) 12/03/24 03:33 Baso # (Auto) 0.1 10^3/uL (0.0-0.1) 12/03/24 03:33 Nucleated RBC % (auto) 0 % 12/03/24 03:33 Nucleated RBCs # 0.0 /100WBC 12/03/24 03:33 Sodium 133 mmol/L (136-145) L 12/03/24 03:33 Potassium 3.6 mmol/L (3.5-5.1) 12/03/24 03:33 Chloride 95 mmol/L (98-107) L 12/03/24 03:33 Carbon Dioxide 22 mmol/L (22-29) 12/03/24 03:33 Anion Gap 19.6 (5-19) H 12/03/24 03:33 BUN 17 mg/dL (6-20) 12/03/24 03:33 Creatinine 0.9 mg/dL (0.5-0.9) 12/03/24 03:33 GFR Calculation 133.4 mL/min (90-130) H 12/03/24 03:33 Glucose 97 mg/dL (65-115) 12/03/24 03:33 POC Glucose 155 mg/dL (70-110) H 12/03/24 11:19 Calculated Osmolality 277 mOsm/kg (285-295) L 12/03/24 03:33 Calcium 9.0 mg/dL (8.5-10.5) 12/03/24 03:33 Magnesium 2.1 mg/dL (1.7-2.3) 12/03/24 03:33 Total Bilirubin 0.5 mg/dL (0.15-1.2) 12/02/24 17:40 AST 17 U/L (0-32) 12/02/24 17:40 ALT 15 U/L (0-33) 12/02/24 17:40 Alkaline Phosphatase 97 U/L (35-105) 12/02/24 17:40 Troponin T Baseline 12 ng/L (0-10) H 12/02/24 17:40 Troponin T 120 Minute 14.75 ng/L (0-10) H 12/02/24 19:58 Delta Troponin T 2.75 ABS# (0-10) 12/02/24 19:58 Troponin T Hi Sens 6Hr 15.50 ng/L (0-10) H 12/02/24 23:48 Troponin T Hi Sens 6Hr Delta 3.50 ng/L (0-12) 12/02/24 23:48 Total Protein 7.5 g/dL (6.6-8.7) 12/02/24 17:40 Albumin 4.0 g/dL (3.5-5.2) 12/02/24 17:40 Globulin 3.5 g/dL (1.3-4.6) 12/02/24 17:40 Urine Color Yellow (Yellow) 12/03/24 09:46 Urine Appearance Cloudy (CLEAR) A 12/03/24 09:46 Urine pH 5.0 (5-7) 12/03/24 09:46 Ur Specific [place] 1.028 (1.005-1.030) 12/03/24 09:46 Urine Protein Negative (Negative) 12/03/24 09:46 Urine Glucose (UA) 3+ (Normal) H 12/03/24 09:46 Urine Ketones Negative (Negative) 12/03/24 09:46 Urine Blood Trace (Negative) A 12/03/24 09:46 Urine Nitrate Negative (Negative) 12/03/24 09:46 Urine Bilirubin Negative (Negative) 12/03/24 09:46 Urine Urobilinogen 0.2 mg/dL (Negative) 12/03/24 09:46 Ur Leukocyte Esterase Negative (Negative) 12/03/24 09:46 Urine RBC 0-2 /hpf (0-2) 12/03/24 09:46 Urine WBC 21-50 /hpf (0-5) H 12/03/24 09:46 Ur Squamous Epith Cells 0-5 /hpf (0-5) 12/03/24 09:46 Amorphous Sediment Not Reportable 12/03/24 09:46 Urine Bacteria 4+ /hpf (NONE) H 12/03/24 09:46 Hyaline Casts 0.81 /lpf 12/03/24 09:46 Coronavirus 229E (PCR) Not detected (NOT DETECT) 12/02/24 17:45 Influenza Type A Ag negative (Negative) 12/02/24 17:45 Influenza Type B Ag negative (Negative) 12/02/24 17:45 SARS-CoV-2 (PCR) Not detected (NOT DETECT) 12/02/24 17:45 Vitals Last Vital Signs Temp 97.8 F 12/03/24 11:21 Pulse 92 12/03/24 11:21 Resp 20 H 12/03/24 11:21 BP 102/81 12/03/24 11:21 Pulse Ox 97 12/03/24 11:21 O2 Del Method Room Air 12/03/24 11:21 Discharge Plan Discharge Patient Disposition: Home Condition: Stable Prescriptions: New nitrofurantoin monohyd/m-cryst [Macrobid] 100 mg capsule 100 mg PO BID 5 Days Qty: 10 0RF Rx Instructions: must administer with a meal/food Continued spironolactone 25 mg tablet 12.5 mg PO DAILY diphenhydramine HCl [Benadryl] 25 mg capsule 25 mg PO TID PRN (Reason: ALLERGIES) insulin lispro [Humalog Kishan KwikPen U-100] 100 unit/mL insulin pen, half- unit 15 unit SUBCUT DAILY Eliquis 5 mg Tablet 5 mg PO BID Qty: 60 0RF torsemide 20 mg Tablet 40 mg PO BID amiodarone 200 mg Tablet 200 mg PO DAILY levothyroxine 25 mcg Tablet 12.5 mcg PO DAILY losartan 25 mg Tablet 12.5 mg PO DAILY dapagliflozin propanediol [Farxiga] 5 mg Tablet 5 mg PO DAILY Discharge Orders: Discharge Order (Routine); Ordered 12/03/24 Ordered By: Bob Brown Referrals: SONYA Mckeon FNP [Primary Care Provider] - 12/09/24 10:00 am Elysia Roper FNP [Nurse Practitioner] - 12/15/24 3:00 pm Discharge Diet: Cardiac Discharge Activity: Resume usual activity Patient Instructions: Mitral Regurgitation (DC), Hemoglobin A1c (GEN), Opioid Safety Activity Restrictions/Additional Instructions: -if any recurrent chest pain/palpitations please go to emergency room -Continue losartan and spironolactone if your systolic blood pressure is greater than 120, if not continue to hold medication Discharge Attestations Time Spent in Discharge Care*: greater than 30 min Status at Discharge: Cognitive status at discharge: cognitively intact , Behavioral status at discharge: cooperative , Quality Metrics Clinical Quality Measures [ No reported AMI, CVA or VTE this stay] Coding Level of Care Code 31368 Total time (in minutes) for Discharge: 45 Diagnoses Cardiomyopathy, unspecified type I42.9 Cardiomyopathy type: unspecified AICD (automatic cardioverter/defibrillator) present Z95.810 Nonsustained ventricular tachycardia I47.2 Intermittent atrial fibrillation I48.0 Systolic and diastolic CHF, acute on chronic I50.43
[2024-12-03 16:31] LABS: Glucose Point of Care 147 mg/dL (70-110)
== END 2024-12-03 17:24 | disposition home or self-care (01) | DRG 308 ==
LOC: ER 20:00 → CSU 20:04
PROVIDERS: Nurse Practitioner Family; Admitting Provider Internal Medicine; Emergency Provider Student in an Organized Health Care Education/Training Program; PCP Nurse Practitioner Family; Visit Provider Family Medicine
DX: I48.0 Paroxysmal atrial fibrillation (principal); I50.33 Acute on chronic diastolic (congestive) heart failure; I42.9 Cardiomyopathy, unspecified; I47.20 Ventricular tachycardia, unspecified; I45.81 Long QT syndrome; Z79.01 Long term (current) use of anticoagulants; Z90.49 Acquired absence of other specified parts of digestive tract; Z95.810 Presence of automatic (implantable) cardiac defibrillator
CPT/HCPCS: 36415; 36416; 71045; 80048; 80053; 81001; 82962; 83516; 83735; 84484; 85025; 87077; 87086; 87186; 87635; 87804; 93005; 96365; 96366; 96372; 99285; J0283; J0780; J1160; J1815; J3490

== ENCOUNTER → 2024-12-18 16:21 | Outpatient (BNVA) | payer SELFPAY | PROVIDERS: PCP Nurse Practitioner Family; Visit Provider Nurse Practitioner Family | DX: R07.9 Chest pain, unspecified (principal) | CPT/HCPCS: 80162; 85025; 93005 ==

== ENCOUNTER → 2024-12-30 13:41 | Outpatient (BNVA) | payer SELFPAY | PROVIDERS: PCP Nurse Practitioner Family; Visit Provider Nurse Practitioner Family | DX: E03.9 Hypothyroidism, unspecified (principal) | CPT/HCPCS: 36415; 84443 ==

== ENCOUNTER 2025-02-02 06:02 | Outpatient (CLI) | payer SELFPAY ==
--- NOTE | 2025-02-02 06:12 | USCV_ITS ---
Sarah Curtis Age: 44 Gender: F : 1980 Exam Date: 02/02/2025 06:23 Ordering Phys: Samara Kelly NP Technologist: Exam Location: [facility] [place] Indication: cardiomyopathy BP: 120 / 70 HR: 91 Rhythm: Sinus Technical Quality: Adequate MEASUREMENTS (Male / Female) Normal Values 2D ECHO LV Diastolic Diameter PLAX 7.5 cm 4.2 - 5.9 / 3.9 - 5.3 cm IVS Diastolic Thickness 1.2 cm 0.6 - 1.0 / 0.6 - 0.9 cm IVS Systolic Thickness 1.5 cm LVPW Diastolic Thickness 1.3 cm 0.6 - 1.0 / 0.6 - 0.9 cm LVPW Systolic Thickness 2.0 cm LVOT Diameter 2.5 cm LV Ejection Fraction 2D Teich 36.5 % LV Ejection Fraction MOD 4C 43.0 % LV Ejection Fraction MOD 2C 49.8 % LV Ejection Fraction 2C AL 49.8 % LA Diameter 5.3 cm RA Systolic Volume 4C AL 45.0 ml RA Systolic Volume 4C MOD 44.0 ml LA Sys Volume AL 242.1 cm cubed LA Sys Volume Index AL 108.8 cm cubed/m squared Aorta at Sinotubular Diameter 2.4 cm M-MODE LA Ao Ratio MM 1.9 AV Cusp Separation MM 2.3 cm DOPPLER AV Peak Velocity 159.0 cm/s LVOT Peak Velocity 71.0 cm/s AV Area Cont Eq vti 3.7 cm squared AV Area Cont Eq pk 2.2 cm squared MV Peak Velocity 242.0 cm/s MV Area PHT 2.3 cm squared TV Peak Velocity 327.5 cm/s TR Peak Velocity 348.0 cm/s TR Peak Gradient 48.4 mmHg TV Peak E Velocity 143.0 cm/s PV Peak Velocity 129.0 cm/s FINDINGS Left Ventricle Left ventricle is dilated. LV systolic function is moderately reduced with EF of 35 to 40%. Moderate global hypokinesis. Right Ventricle Normal in size and function Right Atrium Normal in size Left Atrium Severely dilated Mitral Valve Possible mitraclip. Moderate to severe mitral regurgitation. Severely elevated mean gradient across mitral valve of 13.8 on mmHg Aortic Valve Structurally normal aortic valve. No significant stenosis or regurgitation. Tricuspid Valve Mild tricuspid regurgitation. RVSP is 45 to 50 mmHg. This is consistent with moderate pulmonary hypertension Pulmonic Valve Mild pulmonic regurgitation. Pericardium Normal Aorta Normal in size IVC Not visualized. CONCLUSIONS LV systolic function is moderately reduced with EF of 35-40% Left atrium is severely dilated. Possible mitraclip. Moderate to severe mitral regurgitation. Severely elevated mean gradient across mitral valve of 13.8 on mmHg moderate pulmonary hypertension Mild pulmonic regurgitation. Isidro Meléndez MD (Electronically Signed) Final Date: 16 February 2025 12:43 S
== END 2025-02-02 06:03 | disposition home or self-care (01) ==
PROVIDERS: PCP Nurse Practitioner Family; Visit Provider Nurse Practitioner Family
DX: I42.9 Cardiomyopathy, unspecified (principal); R93.1 Abnormal findings on diagnostic imaging of heart and coronary circulation; I34.0 Nonrheumatic mitral (valve) insufficiency; I07.1 Rheumatic tricuspid insufficiency; I37.1 Nonrheumatic pulmonary valve insufficiency
CPT/HCPCS: 93306

== ENCOUNTER 2025-02-19 17:27 | Emergency (ER) | payer SELFPAY ==
[2025-02-19 17:30] VITALS: BP 136/87; PULSE 88; RESP 16; TEMP 36.7; O2SAT 98; BMI 33.4
--- NOTE | 2025-02-19 17:32 | ECG_ITS ---
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 Measurements Intervals [place] Rate: 84 P: 89 AR: 216 QRS: 72 QRSD: 98 T: 80 QT: 392 QTc: 465 Interpretive Statements SINUS RHYTHM WITH FIRST DEGREE AV BLOCK ST ELEVATION, CONSIDER SEPTAL INJURY [MARKED ST ELEVATION W/O NORMALLY INFLECTED T-WAVE IN V1/V2] TYPE 3 BRUGADA PATTERN (NON-DIAGNOSTIC) [COVED/SADDLEBACK ST ELEVATION > 0.1mV IN 2 OF V1-3] ACUTE CA Compared to ECG 12/18/2024 16:25:55 First degree AV block now present Sinus tachycardia no longer present Left ventricular hypertrophy no longer present ST (T wave) deviation still present Electronically Signed On 02-19-2025 22:23:21 CDT by Fina Topete M.D. [id number]
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
--- NOTE | 2025-02-19 18:19 | XRR_ITS ---
PROCEDURE INFORMATION: Exam: XR Chest Exam date and time: 02/19/2025 6:35 PM Age: 44 years old Clinical indication: Other: Syncope; Prior surgery; Surgery date: 6+ months; Surgery type: Pacemaker x10+yrs TECHNIQUE: Imaging protocol: Radiologic exam of the chest. Views: 1 view. COMPARISON: CR XR chest 1V portable [id number] 12/02/2024 5:11 PM FINDINGS: Tubes, catheters and devices: AICD/pacer device noted in the left chest wall. Lungs: Unremarkable. No consolidation. Pleural spaces: Unremarkable. No pleural effusion. No pneumothorax. Heart/Mediastinum: Cardiomegaly. Bones/joints: Unremarkable. XR/XR chest 1V portable [id number] IMPRESSION: Cardiomegaly.
[2025-02-19 18:30] VITALS: BP 142/83; PULSE 87; O2SAT 96
[2025-02-19 19:17] LABS: Bilirubin Urine Negative (Negative); Blood Urine Trace (Negative); Glucose Urine UA Negative (Normal); Ketones Urine Negative (Negative); Leukocyte Esterase Urine Trace (Negative); Nitrate Urine Negative (Negative); Protein Urine Trace (Negative); Specific Gravity, Urine 1.024 (1.005-1.030); Urine Appearance Clear (CLEAR); Urine Color Yellow (Yellow); pH Urine 5.5 (5-7)
[2025-02-19 19:17] LABS: Basophils # 0.1 10^3/uL (0.0-0.1); Basophils % 0.8 %; Eosinophils # 0.1 10^3/uL (0.0-0.8); Eosinophils % 2.3 %; Hematocrit 35.6 % (36-47); Lymphocytes % 32.9 %; Mean Corpuscular HGB Conc 32.6 g/dL (30-55); Mean Corpuscular Hemoglobin 30.4 pg (27-33); Mean Corpuscular Volume 93.2 fl (85-98); Monocytes # 0.3 10^3/uL (0.2-0.9); Neutrophils # 3.54 10^3/uL (1.8-7.7); Neutrophils % 58.5 %; Nucleated Red Blood Cells % 0 %; Platelet Count 196 10^3/cmm (157-399); Red Blood Count 3.82 10^6/uL (3.85-5.65); Red Cell Distribution Width 14.4 % (12.1-15.1); White Blood Count 6.05 10^3/uL (3.29-11.43)
[2025-02-19 19:20] LABS: Add Urine Microscopic? YES; Bacteria Urine None Seen /hpf; Hyaline Casts Urine 4.52 /lpf; Squamous Epithelial Cell Urine 0-5 /hpf (0-5); WBC Urine 0-5 /hpf (0-5)
[2025-02-19 19:25] LABS: UA Slide Review UA Slide Review Perf
[2025-02-19 19:26] LABS: Add Urine Culture? No; Amorphous Sediment Urine TRACE /hpf; Fine Granular Casts Urine 0-4 /lpf
[2025-02-19 19:35] LABS: Troponin(5th) Baseline < 6 ng/L (0-10)
[2025-02-19 19:58] VITALS: BP 143/91; PULSE 89; RESP 18; O2SAT 93
[2025-02-19 20:02] LABS: Alanine Aminotransferase 36 U/L (0-33); Albumin Level 3.6 g/dL (3.5-5.2); Alkaline Phosphatase 83 U/L (35-105); Aspartate Amino Transferase 37 U/L (0-32); Blood Urea Nitrogen 6 mg/dL (6-20); Calcium 8.6 mg/dL (8.5-10.5); Carbon Dioxide 18 mmol/L (22-29); Chloride 102 mmol/L (98-107); Creatinine Clr Calc Pharmacy 219.4157; Globulin 3.4 g/dL (1.3-4.6); Glomerular Filtration Rate 172.6 mL/min (90-130); Glucose 146 mg/dL (65-115); Magnesium 1.7 mg/dL (1.7-2.3); NT Pro B Type Natriuretic Pept 492 pg/mL (0-125); Osmolality Calculated 282 mOsm/kg (285-295); Sodium 136 mmol/L (136-145); Thyroid Stimulating Hormone 12.13 uIU/mL (0.27-4.20); Total Bilirubin 0.4 mg/dL (0.15-1.2)
[2025-02-19 20:07] LABS: Digoxin 0.5 ng/mL (0.6-1.2)
[2025-02-19 20:08] LABS: Anion Gap 19.7 (5-19); Potassium 3.7 mmol/L (3.5-5.1)
--- NOTE | 2025-02-19 20:15 | ECG_ITS ---
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 Measurements Intervals [place] Rate: 85 P: 85 MO: 224 QRS: 74 QRSD: 114 T: 79 QT: 395 QTc: 472 Interpretive Statements SINUS RHYTHM WITH FIRST DEGREE AV BLOCK MODERATE INTRAVENTRICULAR CONDUCTION DELAY [110+ ms QRS DURATION] NONSPECIFIC ST & T-WAVE ABNORMALITY Compared to ECG 02/19/2025 17:32:39 Intraventricular conduction delay now present T-wave abnormality now present ST (T wave) deviation no longer present Electronically Signed On 02-19-2025 22:22:34 CDT by Fina Topete M.D. [id number] [id number]
[2025-02-19] MEDS: ondansetron 2 mg/ML SDV 2 mL 4 MG IVP (21:36)
[2025-02-19 21:51] LABS: Troponin 5 2HR 7.02 ng/L (0-10); Troponin 5 2HR Delta 1.02001 ABS# (0-10)
[2025-02-19] MEDS: TRAMadol 50 mg Tablet PO (22:39)
[2025-02-19 22:46] VITALS: BP 146/86; PULSE 83; RESP 18; O2SAT 96
[2025-02-19 22:49] VITALS: BP 146/86; PULSE 81; RESP 18; O2SAT 97
== END 2025-02-19 23:08 | disposition home or self-care (01) ==
PROVIDERS: Emergency Provider Emergency Medicine; PCP Nurse Practitioner Family
DX: R55 Syncope and collapse (principal); Z79.01 Long term (current) use of anticoagulants; Z79.4 Long term (current) use of insulin; Z87.891 Personal history of nicotine dependence; Z95.0 Presence of cardiac pacemaker; I50.9 Heart failure, unspecified
CPT/HCPCS: 36415; 71045; 80053; 80162; 81001; 83735; 83880; 84443; 84484; 85025; 93005; 96374; 99285; J2405; J9999

== ENCOUNTER → 2025-03-16 15:31 | Outpatient (BNVA) | payer SELFPAY | PROVIDERS: PCP Nurse Practitioner Family; Visit Provider Internal Medicine Cardiovascular Disease | DX: R06.02 Shortness of breath (principal); I50.9 Heart failure, unspecified | CPT/HCPCS: 36415; 80048; 80162; 83880 ==

== ENCOUNTER 2025-10-13 23:11 | Emergency (ER) | payer SELFPAY ==
[2025-10-13 23:26] VITALS: BP 114/72; PULSE 98; RESP 16; TEMP 36.4; O2SAT 94; BMI 33.4
--- NOTE | 2025-10-13 23:38 | ECG_ITS ---
[facility] Test Date: 2025-10-13 Pat Name: Sarah Curtis Department: Room: Gender: Female [employer]: : [id number] Requested By: Jefe Shi Order Number: [id number] Rosa Maria MD: Fina Topete M.D. Measurements Intervals [place] Rate: 97 P: 79 OR: 187 QRS: 63 QRSD: 107 T: 76 QT: 392 QTc: 499 Interpretive Statements SINUS RHYTHM NONSPECIFIC T-WAVE ABNORMALITY Compared to ECG 02/19/2025 20:15:47 First degree AV block no longer present Intraventricular conduction delay no longer present T-wave abnormality still present Electronically Signed On 10-14-2025 09:52:34 TENANT RELATIONS COORDINATOR by Fina Topete M.D. [email or web address]
--- NOTE | 2025-10-14 01:04 | CTR_ITS ---
PROCEDURE INFORMATION: Exam: CT Abdomen And Pelvis With Contrast Exam date and time: 10/14/2025 2:09 AM Age: 45 years old Clinical indication: Abdominal pain; Prior surgery; Surgery date: 6+ months; Surgery type: 2x c section; Additional info: Abrupt R flank->groin pain=stone, appy TECHNIQUE: Imaging protocol: Computed tomography of the abdomen and pelvis with contrast. Radiation optimization: All CT scans at this facility use at least one of these dose optimization techniques: automated exposure control; mA and/or kV adjustment per patient size (includes targeted exams where dose is matched to clinical indication); or iterative reconstruction. Contrast material: OMNI 350; Contrast volume: 100 ml; Contrast route: INTRAVENOUS (IV); COMPARISON: US gall bladder [id number] 04/10/2020 10:27 AM RADIATION DOSE METRICS: Total DLP (mGy-cm): 1021.33 FINDINGS: Tubes, catheters and devices: Pacemaker leads. Liver: Hepatic steatosis. Gallbladder and biliary ducts: Cholecystectomy. Pancreas: Normal. No ductal dilation. Spleen: Normal. No splenomegaly. Adrenal glands: Normal. No mass. Kidneys and ureters: No hydronephrosis or delayed nephrogram. Left lower pole renal cyst measures 1.4 cm. No delayed nephrogram, hydronephrosis, or obstructive uropathy. Stomach and bowel: Unremarkable. No obstruction. No mucosal thickening. Appendix: No evidence of appendicitis. Intraperitoneal space: Unremarkable. No free air. No significant fluid collection. Vasculature: Unremarkable. No abdominal aortic aneurysm. Lymph nodes: Unremarkable. No enlarged lymph nodes. Urinary bladder: Decompressed urinary bladder. Reproductive: Unremarkable as visualized. Bones/joints: Unremarkable. No acute fracture. Soft tissues: Unremarkable. CT/CT abdomen pelvis w con* [id number] IMPRESSION: 1. Hepatic steatosis. 2. Cholecystectomy. 3. No hydronephrosis or delayed nephrogram. 4. No delayed nephrogram, hydronephrosis, or obstructive uropathy. COMMENTS: Consistent with the [place]'s Incidental Findings Committee white paper (J Am [place] Radiol 2018): Any incidental renal lesion less than 1 cm or classified as too small to characterize, or any incidental cystic renal lesion characterized as simple-appearing, is likely benign. No follow-up imaging is recommended for these lesions per consensus recommendations based on imaging criteria.
[2025-10-14 01:22] LABS: Hematocrit 40.3 % (36-47); Hemoglobin 13.10 g/dL (11.27-16.99); Mean Corpuscular HGB Conc 32.5 g/dL (30-55); Mean Corpuscular Hemoglobin 29.8 pg (27-33); Mean Corpuscular Volume 91.6 fl (85-98); Nucleated Red Blood Cells % 0 %; Platelet Count 291 10^3/cmm (157-399); Red Blood Count 4.40 10^6/uL (3.85-5.65); White Blood Count 8.71 10^3/uL (3.29-11.43)
[2025-10-14 01:36] VITALS: BP 120/72; PULSE 106; O2SAT 91
[2025-10-14 01:39] LABS: HCG, Serum Qual Negative (Negative)
[2025-10-14 01:43] LABS: Alanine Aminotransferase 31 U/L (0-33); Albumin Level 3.9 g/dL (3.5-5.2); Alkaline Phosphatase 93 U/L (35-105); Anion Gap 18.3 (5-19); Aspartate Amino Transferase 29 U/L (0-32); Blood Urea Nitrogen 10 mg/dL (6-20); Calcium 9.3 mg/dL (8.5-10.5); Carbon Dioxide 23 mmol/L (22-29); Chloride 96 mmol/L (98-107); Globulin 3.2 g/dL (1.3-4.6); Glucose 227 mg/dL (65-115); Lipase 39 U/L (13-60); Osmolality Calculated 282 mOsm/kg (285-295); Potassium 4.3 mmol/L (3.5-5.1); Sodium 133 mmol/L (136-145); Total Protein 7.1 g/dL (6.6-8.7)
[2025-10-14 01:48] LABS: Glucose Urine UA 1+ (Normal); Nitrate Urine Positive (Negative); Specific Gravity, Urine 1.027 (1.005-1.030)
[2025-10-14 01:52] LABS: Add Urine Microscopic? YES
[2025-10-14 02:01] LABS: UA Slide Review UA Slide Review Perf
[2025-10-14 02:41] VITALS: BP 120/72; PULSE 106; O2SAT 97
--- NOTE | 2025-10-14 02:54 | ED_ITS ---
HPI - Abdominal Pain 2 General: Chief Complaint: Abdominal Pain Stated Complaint: ABD PAIN Time Seen by Provider: 10/14/25 00:23 History of Present Illness: Patient is a 45-year-old female with a history of heart failure 2/2 alpha gal syndrome with AICD, two sections, and previous kidney stones who presents with acute onset of severe, stabbing lower abdominal pain radiating from the umbilicus downward, associated with cold sweats and nausea with one episode of vomiting. She reports sudden onset urinary incontinence, dysuria, hematuria, and malodorous urine, which was not present earlier in the day. The pain was initially severe but improved after urination, now described as lingering tenderness and states it feels like she passed a kidney stone. She denies prior abdominal pain or feeling unwell before this episode. She has a history of alpha-gal syndrome leading to CHF with an EF of 12% and is on the heart transplant list. Associated Symptoms: Reports nausea and vomiting Related Data Home Medications ?Medication ?Instructions ?Recorded ?Confirmed diphenhydramine HCl 25 mg capsule 25 mg PO TID PRN ALL ERGIES 04/28/24 09/15/25 (Benadryl) furosemide 20 mg tablet (Lasix) 20 mg PO DAILY 5 09/15/25 Previous Rx's ?Medication ?Instructions ?Recorded amiodarone 200 mg tablet 200 mg PO DAILY #90 tabs digoxin 125 mcg (0.125 mg) tablet 125 mcg PO DAILY #90 tabs 09/15/25 rivaroxaban 2.5 mg tablet (Xarelto) 2.5 mg PO BID #180 tabs 09/15/25 sulfamethoxazole 400 1 tab PO BID #10 tabs mg-trimethoprim 80 mg tablet (Bactrim) Allergies Allergy/AdvReac Type Severity Reaction Status Date / Time Alpha-Gal Allergy Unknown Unknown Verified 10/13/25 23:41 ([id number]-7,3-Gala NSAIDS (Non-Steroidal Allergy Unknown Verified 10/13/25 23:41 Anti-Inflamma Penicillins Allergy ADR-Blurry Verified 10/13/25 23:41 Vision Review of Systems 2 General: Reports: 10 or more systems reviewed and unremarkable except in HPI and below GI: Reports: abdominal pain, nausea and vomiting PFS ED 2 PFSH: Medical History (Updated 10/14/25 @ 02:51 by Jefe Shi DO) Medication management Otitis media Tick bite Low left ventricular ejection fraction QT prolongation Intermittent atrial fibrillation History of pulmonary embolism, spontaneous and LV thrombus Nonsustained ventricular tachycardia Abnormal nuclear stress test Atypical chest pain cardiomyopathy Asthma Pacemaker Heart failure Cardiomyopathy Surgical History AICD (automatic cardioverter/defibrillator) present S/P cholecystectomy H/O section Family History Other CAD (coronary artery disease) Diabetes Social History Smoking and tobacco/nicotine status: current every day tobacco/nicotine user cigarettes Packs smoked per day: 0.5 Alcohol intake: current Alcohol intake frequency: holidays/special occasions only Substance/Drug Use: current Substance/Drug use frequency: daily Household members: spouse and children Housing: House Marital status: Physical Exam 2 Narrative: EXAM NARRATIVE: Patient fatigued appearing but nontoxic, afebrile, vital stable on arrival, mildly tachycardic, no acute distress. Abdominal exam with mild distention and mild diffuse right-sided abdominal tenderness, negative McBurney and Pinon sign, not peritonitic, soft, bowel sounds intact, mild right CVA tenderness. Breathing comfortably on room air, saturating well, GCS 15. Mild sinus tachycardia, no leg swelling Course 2 Vital Signs: Vital signs: Vital Signs Temperature 97.5 F L 10/13/25 23:26 Pulse Rate 106 H 10/14/25 02:57 Respiratory Rate 16 10/13/25 23:26 Blood Pressure 111/61 10/14/25 02:57 Pulse Oximetry 98 10/14/25 02:57 Oxygen Delivery Me thod Room Air 10/14/25 02:41 MDM - Abdominal Pain Medical Decision Making -ddx: Nephrolithiasis, pyelonephritis, perinephric abscess, cystitis, appendicitis, postcholecystectomy syndrome, enteritis, dehydration, electrolyte abnormality - Patient clinically sounding like she just passed a kidney stone, still some mild tenderness, appears fatigued and in mild discomfort, diffuse right-sided abdominal tenderness, abrupt onset improvement in symptoms after recent urination, will get urine, abdominal labs and CT scan to look for any surgical intra-abdominal pathology especially because centerless grinder tender after episode and with high risk history of advanced heart failure. Patient okay with this plan, denying needing any pain or nausea medication at this time, we will hold off on fluids in setting of her EF being 12%. - Patient's CT scan with no renal pathology, no identified stones, abscess, hydronephrosis. No intestinal or viscus injury, stranding, obstruction. Her labs were overall reassuring, her UA was moderately positive, most likely she had a stone and was having an infection behind it but seemingly passed the stone on her own so no further emergent condition was hand, repeat abdominal exam slightly improved with no medication, she was able to tolerate p.o. and she was then started on Bactrim for UTI and advised follow-up, strict return precautions given, daughter at bedside. Lab Data 10/14/25 01:11 10/14/25 01:11 Labs/Radiology: Radiology Impressions Abdomen/Pelvis CT 10/14/25 01:04 IMPRESSION: 1. Hepatic steatosis. 2. Cholecystectomy. 3. No hydronephrosis or delayed nephrogram. 4. No delayed nephrogram, hydronephrosis, or obstructive uropathy. COMMENTS: Consistent with the [place] [employer]'s Incidental Findings Committee white paper (J Am [place] [employer]iol 2018): Any incidental renal lesion less than 1 cm or classified as too small to characterize, or any incidental cystic renal lesion characterized as simple-appearing, is likely benign. No follow-up imaging is recommended for these lesions per consensus recommendations based on imaging criteria. Laboratory Results WBC 8.71 10^3/uL (3.29-11.43) 10/14/25 01:11 RBC 4.40 10^6/uL (3.85-5.65) 10/14/25 01:11 Hgb 13.10 g/dL (11.27-16.99) 10/14/25 01:11 Hct 40.3 % (36-47) 10/14/25 01:11 MCV 91.6 fl (85-98) 10/14/25 01:11 MCH 29.8 pg (27-33) 10/14/25 01:11 MCHC 32.5 g/dL (30-55) 10/14/25 01:11 RDW 13.8 % (12.1-15.1) 10/14/25 01:11 Plt Count 291 10^3/cmm (157-399) 10/14/25 01:11 MPV 9.8 fL (7.4-10.4) 10/14/25 01:11 Neut % (Auto) 70.0 % 10/14/25 01:11 Lymph % (Auto) 22.8 % 10/14/25 01:11 Cotton % (Auto) 4.7 % 10/14/25 01:11 Eos % (Auto) 1.3 % 10/14/25 01:11 Baso % (Auto) 0.6 % 10/14/25 01:11 Neut # (Auto) 6.10 10^3/uL (1.8-7.7) 10/14/25 01:11 Lymph # (Auto) 2.0 10^3/uL (0.8-4.8) 10/14/25 01:11 Cotton # (Auto) 0.4 10^3/uL (0.2-0.9) 10/14/25 01:11 Eos # (Auto) 0.1 10^3/uL (0.0-0.8) 10/14/25 01:11 Baso # (Auto) 0.1 10^3/uL (0.0-0.1) 10/14/25 01:11 Nucleated RBC % (auto) 0 % 10/14/25 01:11 Nucleated RBCs # 0.0 /100WBC 10/14/25 01:11 Sodium 133 mmol/L (136-145) L 10/14/25 01:11 Potassium 4.3 mmol/L (3.5-5.1) 10/14/25 01:11 Chloride 96 mmol/L (98-107) L 10/14/25 01:11 Carbon Dioxide 23 mmol/L (22-29) 10/14/25 01:11 Anion Gap 18.3 (5-19) 10/14/25 01:11 BUN 10 mg/dL (6-20) 10/14/25 01:11 Creatinine 0.6 mg/dL (0.5-0.9) 10/14/25 01:11 GFR Calculation 107.6 mL/min (90-130) 10/14/25 01:11 Glucose 227 mg/dL (65-115) H 10/14/25 01:11 Calculated Osmolality 282 mOsm/kg (285-295) L 10/14/25 01:11 Calcium 9.3 mg/dL (8.5-10.5) 10/14/25 01:11 Total Bilirubin 0.4 mg/dL (0.15-1.2) 10/14/25 01:11 AST 29 U/L (0-32) 10/14/25 01:11 ALT 31 U/L (0-33) 10/14/25 01:11 Alkaline Phosphatase 93 U/L (35-105) 10/14/25 01:11 Total Protein 7.1 g/dL (6.6-8.7) 10/14/25 01:11 Albumin 3.9 g/dL (3.5-5.2) 10/14/25 01:11 Globulin 3.2 g/dL (1.3-4.6) 10/14/25 01:11 Lipase 39 U/L (13-60) 10/14/25 01:11 HCG, Qual Negative (Negative) 10/14/25 01:11 Urine Color Yellow (Yellow) 10/14/25 01:33 Urine Appearance Cloudy (CLEAR) A 10/14/25 01:33 Urine pH 5.0 (5-7) 10/14/25 01:33 Ur Specific [place] 1.027 (1.005-1.030) 10/14/25 01:33 Urine Protein 1+ (Negative) A 10/14/25 01:33 Urine Glucose (UA) 1+ (Normal) H 10/14/25 01:33 Urine Ketones Negative (Negative) 10/14/25 01:33 Urine Blood Negative (Negative) 10/14/25 01:33 Urine Nitrate Positive (Negative) A 10/14/25 01:33 Urine Bilirubin Negative (Negative) 10/14/25 01:33 Urine Urobilinogen 1.0 mg/dL (Negative) 10/14/25 01:33 Ur Leukocyte Esterase 1+ (Negative) A 10/14/25 01:33 Urine RBC 0-2 /hpf (0-2) 10/14/25 01:33 Urine WBC 21-50 /hpf (0-5) H 10/14/25 01:33 Ur Squamous Epith Cells 6-10 /hpf (0-5) 10/14/25 01:33 Calcium Oxalate Crystal 15-25 /hpf H 10/14/25 01:33 Amorphous Sediment Not Reportable 10/14/25 01:33 Urine Bacteria 4+ /hpf (NONE) H 10/14/25 01:33 Hyaline Casts 3.30 /lpf 10/14/25 01:33 Urine Mucus 2+ /hpf 10/14/25 01:33 All radiology interpretation(s) finalized by discharge Discharge Plan Discharge Patient Disposition: Home Clinical Impression: UTI (urinary tract infection), Kidney stone Condition: Stable Prescriptions: New sulfamethoxazole-trimethoprim [Bactrim] 400-80 mg tablet 1 tab PO BID Qty: 10 0RF No Action diphenhydramine HCl [Benadryl] 25 mg capsule 25 mg PO TID PRN (Reason: ALLERGIES) furosemide [Lasix] 20 mg tablet 20 mg PO DAILY amiodarone 200 mg tablet 200 mg PO DAILY Qty: 90 3RF digoxin 125 mcg (0.125 mg) tablet 125 mcg PO DAILY Qty: 90 1RF rivaroxaban [Xarelto] 2.5 mg tablet 2.5 mg PO BID Qty: 180 1RF Discharge Orders: Discharge ED (Routine); Ordered 10/14/25 Ordered By: Jefe Shi Patient Instructions: Abdominal Pain (ED), Opioid Safety, Pain Management, Patient Portal & [facility] Instructions Activity Restrictions/Additional Instructions: You were seen for your back and abdominal pain, vomiting, you were evaluated with labs and a CT scan which ultimately found you to have a urinary tract infection. It is most likely that you had a kidney stone that you passed on your own prior to arrival and so all that is left is to treat the infection. For this, you were given a first dose of Bactrim in the emergency room, for the remainder of it, take Bactrim every 12 hours for a total of 5 days, take this with food if possible. Return to the ED with severe recurrence of the pain, fevers, severe abdominal pain, vomiting, any other emergent concerns. 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
[2025-10-14 02:57] VITALS: BP 111/61; PULSE 106; O2SAT 98
[2025-10-14] MEDS: sulfamethoxazole-trimeth DS 160-800 mg Tablet 1 TAB PO (03:00)
== END 2025-10-14 03:07 | disposition home or self-care (01) ==
PROVIDERS: Physician Assistant; Emergency Provider Student in an Organized Health Care Education/Training Program
DX: N39.0 Urinary tract infection, site not specified (principal); N20.0 Calculus of kidney; F17.210 Nicotine dependence, cigarettes, uncomplicated; I50.9 Heart failure, unspecified; Z95.0 Presence of cardiac pacemaker
CPT/HCPCS: 36415; 74177; 80053; 81001; 83690; 84703; 85025; 87077; 87086; 87186; 93005; 99284; J9999

== ENCOUNTER 2025-11-09 18:06 | Observation (INO) | payer MEDICAID, SELFPAY ==
[2025-11-09] VITALS (11 sets, daily range): BP systolic 116–151; BP diastolic 79–116; PULSE 99–113; RESP 18–24; TEMP 36.5–36.9; O2SAT 92–99
--- NOTE | 2025-11-09 18:07 | XRR_ITS ---
PROCEDURE INFORMATION: Exam: XR Chest Exam date and time: 11/09/2025 6:23 PM Age: 45 years old Clinical indication: Pain; Chest pressure; Prior surgery; Surgery date: 6+ months; Surgery type: Pacer, mitral clips; Additional info: Chest pain TECHNIQUE: Imaging protocol: Radiologic exam of the chest. Views: 1 view. COMPARISON: CR XR chest 1V portable [id number] 02/19/2025 6:35 PM FINDINGS: Tubes, catheters and devices: There is a left-sided unipolar AICD Lungs: Unremarkable. No consolidation. Pleural spaces: Unremarkable. No pleural effusion. No pneumothorax. Heart/Mediastinum: Mitral valve clips in position. Heart is enlarged. There is enlargement of the main pulmonary artery segment present. Bones/joints: Unremarkable. XR/XR chest 1V portable [id number] IMPRESSION: Cardiomegaly
--- NOTE | 2025-11-09 18:24 | ED_ITS ---
HPI - General Adult 2 General: Chief complaint: General Medical Stated complaint: Chest Pain Time Seen by Provider: 11/09/25 18:18 History of Present Illness: 45-year-old female with a history of pos tpartum cardiomyopathy with chronic congestive heart failure, severe mitral regurgitation, pulmonary hypertension, intermittent atrial fibrillation and a previous episode of nonsustained ventricular tachycardia that led to ICD placement, pulmonary embolism and LV thrombus, history of vasovagal syncope, and previous episodes of near syncope who presents emergency room today with episodes of lightheadedness and near syncope. She said over the last 6 days she has had an episode a day where she starts feeling lightheaded and she says the only way she can make it go away is to get up and walk around. However today she has had many more episodes and was not able to get out of the car when she got here today. She is slightly tachycardic on presentation. Related Data Home Medications ?Medication ?Instructions ?Recorded ?Confirmed diphenhydramine HCl 25 mg capsule 25 mg PO TID PRN ALL ERGIES 04/28/24 09/15/25 (Benadryl) furosemide 20 mg tablet (Lasix) 20 mg PO DAILY 5 09/15/25 Previous Rx's ?Medication ?Instructions ?Recorded amiodarone 200 mg tablet 200 mg PO DAILY #90 tabs digoxin 125 mcg (0.125 mg) tablet 125 mcg PO DAILY #90 tabs 09/15/25 rivaroxaban 2.5 mg tablet (Xarelto) 2.5 mg PO BID #180 tabs 09/15/25 sulfamethoxazole 400 1 tab PO BID #10 tabs mg-trimethoprim 80 mg tablet (Bactrim) Allergies Allergy/AdvReac Type Severity Reaction Status Date / Time Alpha-Gal Allergy Unknown Unknown Verified 10/13/25 23:41 (Xpteiudqb-Asbnm-6,3-Gala NSAIDS (Non-Steroidal Allergy Unknown Verified 10/13/25 23:41 Anti-Inflamma Penicillins Allergy ADR-Blurry Verified 10/13/25 23:41 Vision Review of Systems 2 Narrative: Constitutional symptoms: Negative except as documented in HPI. Skin symptoms: Negative except as documented in HPI. Eye symptoms: Negative except as documented in HPI. ENMT symptoms: Negative except as documented in HPI. Respiratory symptoms: Negative except as documented in HPI. Cardiovascular symptoms: Negative except as documented in HPI. Gastrointestinal symptoms: Negative except as documented in HPI. Genitourinary symptoms: Negative except as documented in HPI. Musculoskeletal symptoms: Negative except as documented in HPI. Neurologic symptoms: Negative except as documented in HPI. Psychiatric symptoms: Negative except as documented in HPI. Endocrine symptoms: Negative except as documented in HPI. PFSH ED 2 PFSH: Medical History (Updated 11/09/25 @ 20:04 by Sarahi Coley MD) Medication management Otitis media Tick bite Low left ventricular ejection fraction QT prolongation Intermittent atrial fibrillation History of pulmonary embolism, spontaneous and LV thrombus Nonsustained ventricular tachycardia Abnormal nuclear stress test Atypical chest pain cardiomyopathy Asthma Pacemaker Heart failure Cardiomyopathy Surgical History AICD (automatic cardioverter/defibrillator) present S/P cholecystectomy H/O section Family History Other CAD (coronary artery disease) Diabetes Social History Smoking and tobacco/nicotine status: current every day tobacco/nicotine user cigarettes Packs smoked per day: 0.5 Alcohol intake: current Alcohol intake frequency: holidays/special occasions only Substance/Drug Use: current Substance/Drug use frequency: daily Household members: spouse and children Housing: House Marital status: Physical Exam 2 Narrative: EXAM NARRATIVE: General: Alert, no acute distress. Skin: Warm, dry. Head: Normocephalic, atraumatic. Neck: Supple, trachea midline. Eye: Extraocular movements are intact. Ears, nose, mouth and throat: mucosa moist. Cardiovascular: Regular, Normal peripheral perfusion. Respiratory: Lungs are clear to auscultation, respirations are non-labored, breath sounds are equal, Symmetrical chest wall expansion. Gastrointestinal: Soft, Nontender, Non distended Musculoskeletal: Normal ROM, no deformity. Neurological: Alert and oriented, No focal neurological deficit observed. Psychiatric: Cooperative, appropriate mood & affect. Course 2 Vital Signs: Vital signs: Vital Signs Temperature 98.2 F 11/09/25 18:10 Pulse Rate 103 H 11/09/25 20:01 Respiratory Rate 18 11/09/25 18:10 Blood Pressure 140/116 11/09/25 20:01 Pulse Oximetry 95 11/09/25 20:01 Oxygen Delivery Me thod Room Air 11/09/25 20:01 MDM - General Adult Medical Decision Making Medical decision making Patient's reason for coming to the emergency room: Near syncope Social determinants: Patient is currently unemployed. She is accompanied by a friend I reviewed the patient's medical record. 45-year-old female with a history of cardiomyopathy with chronic congestive heart failure, severe mitral regurgitation, pulmonary hypertension, intermittent atrial fibrillation. I also reviewed the last few cardiology notes. I reviewed the patient's current home meds Patient is on Xarelto. Digoxin. Amiodarone. Lasix. Alternate historians: None Differential diagnosis including but not limited to and based on the above HPI, review of systems and physical exam in this patient with syncope: Vasovagal, orthostatics hypotension, cardiac dysrhythmia, myocardial infarction, infection and hypotension, particularly in this patient with concern for tach arrhythmias. Orders placed to evaluate differential diagnosis based on the above differential, HPI and physical exam EKG: Time 1859. Rate 103. Sinus tachycardia, nonspecific T wave changes, no ectopy, normal NC & QRS intervals, This was reviewed and interpreted by myself the ER physician at 1904 Chest x-ray: Cardiomegaly. Pacemaker in place. No acute process. No infiltrate. No pneumothorax. This was reviewed and interpreted by myself the emergency room physician. I also reviewed the radiology report. Lab Review: Laboratory results were reviewed and interpreted by myself the emergency room physician. No leukocytosis. No anemia. No renal failure. Initial troponin and repeat are negative at around 10. proBNP is mildly elevated at 780 Assessment of risk: Level of risk: High risk patient. Multiple comorbidities. Hospitalization considerations: Placing on observation for cardiac monitoring and evaluation by cardiology tomorrow. Reexamination: Patient remained stable. No increased work of breathing. No altered mental status. No focal motor deficits. Patient has remained slightly tachycardic. Consultation: I spoke with Dr. Topete who is on-call for cardiology and follows this patient. He recommends interrogating her pacemaker and he will consult and see her tomorrow. Consultation: I spoke with Dr. Solorzano with the hospitalist service who agrees to admission to observation. Assessment and plan: Tachycardia Near syncope Cardiomyopathy Heart failure ?IV and oral metoprolol in the emergency room -I discussed the patient with the hospitalist on-call who is admitting the patient. - Discussed findings and plan with patient. Answered any questions. - All laboratory values were reviewed and interpreted personally by myself, the ER physician - All imaging was reviewed and interpreted personally by myself, the ER physician. - Evaluation and treatment of this problem were appropriate in the emergency setting Lab Data 11/09/25 18:24 11/09/25 18:24 Radiology Impressions Chest X-Ray 11/09/25 18:07 IMPRESSION: Cardiomegaly Laboratory Results WBC 8.25 10^3/uL (3.29-11.43) 11/09/25 18:24 RBC 4.81 10^6/uL (3.85-5.65) 11/09/25 18:24 Hgb 13.90 g/dL (11.27-16.99) 11/09/25 18:24 Hct 43.2 % (36-47) 11/09/25 18:24 MCV 89.8 fl (85-98) 11/09/25 18:24 MCH 28.9 pg (27-33) 11/09/25 18:24 MCHC 32.2 g/dL (30-55) 11/09/25 18:24 RDW 13.4 % (12.1-15.1) 11/09/25 18:24 Plt Count 307 10^3/cmm (157-399) 11/09/25 18:24 MPV 9.4 fL (7.4-10.4) 11/09/25 18:24 Neut % (Auto) 65.5 % 11/09/25 18: Lymph % (Auto) 27.3 % 11/09/25 18:24 [place] % (Auto) 5.1 % 11/09/25 18:24 Eos % (Auto) 1.1 % 11/09/25 18:24 Baso % (Auto) 0.6 % 11/09/25 18:24 Neut # (Auto) 5.41 10^3/uL (1.8-7.7) 11/09/25 18:24 Lymph # (Auto) 2.3 10^3/uL (0.8-4.8) 11/09/25 18:24 [place] # (Auto) 0.4 10^3/uL (0.2-0.9) 11/09/25 18:24 Eos # (Auto) 0.1 10^3/uL (0.0-0.8) 11/09/25 18:24 Baso # (Auto) 0.1 10^3/uL (0.0-0.1) 11/09/25 18:24 Nucleated RBC % (auto) 0 % 11/09/25 18:24 Nucleated RBCs # 0.0 /100WBC 11/09/25 18:24 PT 13.40 SECONDS (12.1-14.9) 11/09/25 18:24 INR 0.96 (0.8-1.2) 11/09/25 18:24 APTT 27.6 SECONDS (23.9-36.7) 11/09/25 18:24 Sodium 137 mmol/L (136-145) 11/09/25 18:24 Potassium 4.6 mmol/L (3.5-5.1) 11/09/25 18:24 Chloride 99 mmol/L (98-107) 11/09/25 18:24 Carbon Dioxide 22 mmol/L (22-29) 11/09/25 18:24 Anion Gap 20.6 (5-19) H 11/09/25 18:24 BUN 10 mg/dL (6-20) 11/09/25 18:24 Creatinine 0.5 mg/dL (0.5-0.9) 11/09/25 18:24 GFR Calculation 132.8 mL/min (90-130) H 11/09/25 18:24 Glucose 233 mg/dL (65-115) H 11/09/25 18:24 Calculated Osmolality 291 mOsm/kg (285-295) 11/09/25 18:24 Lactic Acid 2.3 mmol/L (0.5-2.2) H 11/09/25 18:24 Calcium 9.4 mg/dL (8.5-10.5) 11/09/25 18:24 Total Bilirubin 0.7 mg/dL (0.15-1.2) 11/09/25 18:24 AST 48 U/L (0-32) H 11/09/25 18:24 ALT 43 U/L (0-33) H 11/09/25 18:24 Alkaline Phosphatase 102 U/L (35-105) 11/09/25 18:24 Troponin T Baseline 10 ng/L (0-10) 11/09/25 18:24 Troponin T 60 Minute 10.43 ng/L (0-10) H 11/09/25 19:21 Delta Troponin T 0.43 ABS# (0-10) 11/09/25 19:21 NT-Pro-B Natriuret Pep 786 pg/mL (0-125) H 11/09/25 18:24 Total Protein 7.0 g/dL (6.6-8.7) 11/09/25 18:24 Albumin 4.1 g/dL (3.5-5.2) 11/09/25 18:24 Globulin 2.9 g/dL (1.3-4.6) 11/09/25 18:24 Lipase 46 U/L (13-60) 11/09/25 18:24 All radiology interpretation(s) finalized by discharge Discharge Plan Discharge Patient Disposition: Placed in Observation Clinical Impression: Tachycardia, Near syncope, Systolic and diastolic CHF, acute on chronic Cardiomyopathy Qualifiers: Cardiomyopathy type: unspecified Qualified Code(s): I42.9 - Cardiomyopathy, unspecified Coding Level of Care Code ED Location Analyst for [facility]
[2025-11-09 18:34] LABS: Hematocrit 43.2 % (36-47); Hemoglobin 13.90 g/dL (11.27-16.99); Mean Corpuscular HGB Conc 32.2 g/dL (30-55); Mean Corpuscular Hemoglobin 28.9 pg (27-33); Mean Corpuscular Volume 89.8 fl (85-98); Nucleated Red Blood Cells % 0 %; Platelet Count 307 10^3/cmm (157-399); Red Blood Count 4.81 10^6/uL (3.85-5.65); White Blood Count 8.25 10^3/uL (3.29-11.43)
[2025-11-09 18:55] LABS: INR 0.96 (0.8-1.2); Prothrombin Time 13.40 SECONDS (12.1-14.9)
[2025-11-09 18:56] LABS: Partial Thromboplastin Time 27.6 SECONDS (23.9-36.7)
[2025-11-09 18:59] LABS: Lactic Sepsis W/Reflex 2.3 mmol/L (0.5-2.2)
[2025-11-09 19:21] LABS: Troponin(5th) Baseline 10 ng/L (0-10)
--- NOTE | 2025-11-09 19:21 | ECG_ITS ---
[facility] Date: 2025-11-09 Pat Name: Sarah Curtis Department: Room: Gender: Female [employer]: : 1980 Requested By: Sarahi Richey Order Number: [id number] Crane MD: Fina Topete M.D. Measurements Intervals [place] Rate: 103 P: 66 VA: 184 QRS: 49 QRSD: 109 T: 72 QT: 435 QTc: 572 Interpretive Statements SINUS TACHYCARDIA POSSIBLE LEFT ATRIAL ENLARGEMENT [-0.1mV P-WAVE IN V1/V2] NONSPECIFIC T-WAVE ABNORMALITY ABNORMAL RHYTHM ECG Compared to ECG 10/13/2025 23:38:13 Sinus rhythm no longer present T-wave abnormality still present Electronically Signed On 11-10-2025 21:47:55 STATIONARY ENGINEER SUPERVISOR by Fina Topete M.D. [email or web address]
[2025-11-09 19:30] LABS: Alanine Aminotransferase 43 U/L (0-33); Albumin Level 4.1 g/dL (3.5-5.2); Alkaline Phosphatase 102 U/L (35-105); Aspartate Amino Transferase 48 U/L (0-32); Blood Urea Nitrogen 10 mg/dL (6-20); Calcium 9.4 mg/dL (8.5-10.5); Carbon Dioxide 22 mmol/L (22-29); Chloride 99 mmol/L (98-107); Globulin 2.9 g/dL (1.3-4.6); Glucose 233 mg/dL (65-115); Lipase 46 U/L (13-60); NT Pro B Type Natriuretic Pept 786 pg/mL (0-125); Osmolality Calculated 291 mOsm/kg (285-295); Sodium 137 mmol/L (136-145); Total Protein 7.0 g/dL (6.6-8.7)
[2025-11-09 19:31] LABS: Anion Gap 20.6 (5-19); Potassium 4.6 mmol/L (3.5-5.1)
--- OUTSIDE RECORDS SUMMARY | 2025-11-09 19:33 | XMS_ITS | Clinical Summary ---
Author Organization [facility] Address [address] [place] [address] Phone Care Team Providers Care Dinkey Operator Name Role Phone Unavailable Primary Care Provider Unavailabl e Allergies Active Allergy Reactions Criticality Noted Date Comments Nsaids (Non-Steroidal Anti-Inflammatory Drug) Other (See Comments) 04/01/2019 Heart problems and prolonged QT Penicillins Swelling Low 04/01/2019 Spironolactone Shortness of Breath/Wheezing,Diz ziness High 05/24/2020 Medications ergocalciferol , vitamin D2, (VITAMIN D ORAL) Take by mouth see administration instructions. 1 time weekly Active apixaban (Eliquis) 5 mg tablet Take 1 Tablet (5 mg) by mouth 2 times daily. 180 Tablet 3 0 Active metoprolol succinate (TOPROL XL) 25 mg Extended Release 24 hour tablet Take 1 Tablet (25 mg) by mouth daily. 30 Tablet 3 0 Active sacubitriL-julia sartan (ENTRESTO) 24-26 mg Tablet Take 1 Tablet by mouth 2 times daily. 60 Tablet 3 0 Active amiodarone (CORDARONE) 200 mg tablet Take 1 Tablet (200 mg) by mouth daily. 30 Tablet 11 0 Active Additional Information Patient taking differently: 400 mgOral DAILY, Reported on 07/23/2020 bumetanide (BUMEX) 0.5 mg tablet Take 1 Tablet (0.5 mg) by mouth daily. 30 Tablet 11 0 Active potassium chloride (KLOR-CON) 10 mEq Extended Release tablet Take 1 Tablet (10 mEq) by mouth daily with breakfast. 30 Tablet 11 0 Active Active Problems Problem Noted Date Diagnosed Date Chronic anticoagulation 07/12/2020 cardiomyopathy 05/21/2020 Chronic combined systolic an d diastolic congestive heart failure 05/21/2020 ICD (implantable cardioverter-defibrillator) in place 05/21/2020 On continuous oral anticoagulation 05/21/2020 Paroxysmal atrial fibrillati on with rapid ventricular response 05/21/2020 Pulmonary embolism without acute cor pulmonale 0 05/21/2020 LV (left ventricular) mural thrombus Social History Tobacco Use Types Packs/Day Years Used Date Smoking Tobacco: Every Day Cigarettes Smokeless Tobacco: Never Alcohol Use Standard Drinks/Week Comments Yes 0 (1 standard drink = 0.6 oz pur e alcohol) rare Comments No Sex and Gender Information Value Date Recorded Sex Assigned at Not on file Legal Sex Female 8:40 AM CDT Gender Identity Not on file Sexual Orientation Not on file Last Filed Vital Signs Vital Sign Reading Time Taken Comments Blood Pressure 92/68 07/23/2020 11:55 AM CDT Pulse 93 07/23/2020 11:55 AM CDT Temperature 36.6 C (97.8 F) 07/23/2020 9:54 AM CDT Respiratory Rate 22 07/23/2020 11:5 5 AM CDT Oxygen Saturation 93% 07/23/2020 11: 55 AM CDT Inhaled Oxygen Concentration - - Weight 100.9 kg (222 lb 6.4 oz) 07/23/2020 9:54 AM CDT Height 171.5 cm (5' 7.5 ) 07/23/2020 9:54 AM CDT Body Mass Index 34.32 07/23/2020 9:54 AM CDT Plan of Treatment Health Maintenance Due Date Last Done Comments DTAP/TDAP/TD VACCINES (1 - Tdap) 1998 HEPATITIS B VACCINES (1 of 3 - 19+ 3-dose series) 02/24 HPV/Cotest (21-29) 2000 CERVICAL CANCER SCREENING 2009 HPV/Cotest (30-65) 2009 PAP SMEAR 2009 BREAST CANCER SCREENING 2019 COLORECTAL SCREENING 2024 Colorectal Cancer Screening 2024 FIT-DNA Q 3 years 2024 FIT/FOBT Q 1 year 2024 Flex Sig/CT Colonography Q 5 years 2024 INFLUENZA VACCINE (#1) 2025 11/24/2013 HPV VACCINES (No Doses Required) Completed Insurance MEDICAID [place] RX INFOCROSSING Medicaid Advance Directives For more information, please contact: [phone] * Full Code (Latest Code Status on File) Date Activated Date Inactivated Comments 05/21/2020 1:15 PM 05/24/2020 7:05 PM
--- OUTSIDE RECORDS SUMMARY | 2025-11-09 19:33 | XMS_ITS | Clinical Summary ---
Author Organization [facility] Address [address] [place]: Epic Prelude ADT NIKOLAS SHRESTHA [address] Care Team Providers Care Director Retail Brand Development Name Role Phone Unavailable Primary Care Provider Unavailabl e Allergies Active Allergy Reactions Criticality Noted Date Comments Influenza Virus Vaccines Other (See Comments) 09/05/2024 Hospitalized after receiving Flu & Pneumonia Vaccine [place]or[place] Other (See Comments) High 07/25/2024 Patient states heart stopped Nsaids (Non-Steroidal Anti-Inflammatory Drug) Other (See Comments) 04/01/2019 Heart problems and prolonged QT Penicillins Swelling Low 04/01/2019 Pork Derived (Porcine) Other (See Comments) 09/05/2024 Worship - NO PORK PRODUCTS Spironolactone Shortness of Breath/Wheezing,Diz ziness High 05/24/2020 Medications metoprolol succinate (TOPROL XL) 25 mg Extended Release 24 hour tablet Take 1 Tablet (25 mg) by mouth daily. 30 Tablet 3 0 Active acetaminophen (TYLENOL) 500 mg tablet Take 1,000 mg by mouth every 6 hours. Active blood sugar diagnostic (Blood Glucose Test) Strip Use 1 strip four times daily (before meals and at bedtime) to check your blood sugars. 2 Active lancets Use four times daily (before meals and at bedtime) to check your blood sugars. 2 Active Insulin [place], Disposable, 31 gauge x 16 Needle Use once daily (in the morning) to administer your insulin 2 Active apixaban (Eliquis) 5 mg tablet Take 5 mg by mouth daily. Historical medication Active torsemide 40 mg Tablet Take 40 mg by mouth daily. 100 Tablet 1 4 Active amiodarone (CORDARONE) 400 mg Tablet Take 1 Tablet (400 mg) by mouth daily. 30 Tablet 11 4 Active sacubitriL-vals jerardo (ENTRESTO) 24-26 mg Tablet Take 1 Tablet by mouth 2 times daily. 200 Tablet 3 5 Active DIGOXIN ORAL Take by mouth. Ac tive Active Problems Problem Noted Date Diagnosed Date Prolonged Q-T interval on ECG 01/27/2025 Cardiac syncope 11/06/2024 VT (ventricular tachycardia) 11/06/2024 Loss of consciousness 11/05/2024 Other chest pain 11/05/2024 Intermittent palpitations 10/08/2024 S/P mitral valve clip implantation 09/10/2024 Chronic atrial fibrillation 07/26/2024 Hypomagnesemia 07/26/2024 Sinus tachycardia 07/25/2024 Nonischemic dilated cardiomyopathy 07/16/2024 Ventricular fibrillation, paroxysmal 07/16/2024 Non-epileptic Seizure Disorder 07/16/2024 Former smoker 05/26/2024 Otitis externa 05/06/2024 Acute swimmer's ear of right side 04/23/2024 Chronic anticoagulation 07/12/2020 cardiomyopathy 05/21/2020 On continuous oral anticoagulation 05/21/2020 Chronic combined systolic an d diastolic congestive heart failure 05/21/2020 ICD (implantable cardioverter-defibrillator) in place 05/21/2020 History of pulmonary embolus (PE) 05/21/2020 Paroxysmal atrial fibrillation 05/21/2020 Resolved Problems Problem Noted Date Diagnosed Date Resolved Date Acute pulmonary edema 11/06/20242023 Dizziness 09/10/2024 09/11/2024 Severe mitral valve regurgitation 07/25/2024 10/13/2024 Acute on chronic combined sy stolic and diastolic congestive heart failure 05/26/202409/11 LV (left ventricular) mural thrombus 07/25/2024 Encounters Date Type Department Care Team Description 10/13/2025 - 10/13/2025 11:59 PM WORK ORDER CLERK Hospital Encounter [facility] [place] [address] [place] [address] Ambulance, [facility] Discharge Disposition: Short term [facility] 10/13/2025 External Device Data STL ABSTRACTION Provider, Abstract 09/29/2025 External Device Data STL ABSTRACTION Provider, Abstract 09/23/2025 External Device Data ST[place] ABSTRACTION Provider, Abstract 09/23/2025 External Device Data ST[place] ABSTRACTION Provider, Abstract 09/16/2025 External Device Data STL ABSTRACTION Provider, Abstract from Last 3 Months Immunizations Immunization Administration Dates Next Due (DAPTACEL)(6 WKS-6 YRS) DIPH THERIA, TETANUS TOXOIDS, AND ACCELLULAR PERTUSSIS VACCINE (DTAP), 0.5ML, IM 11/23/2015 Influenza Seasonal Unspecified Formulation IM Social History Tobacco Use Types Packs/Day Years Used Date Smoking Tobacco: Former Cigarettes 0.5 23 S tarted: 1997 Smokeless Tobacco: Never Tobacco Cessation:Counseling Given: Not Answered Alcohol Use Standard Drinks/Week Comments Not Currently 0 (1 standard drink = 0.6 oz pur e alcohol) Feeling Safe Answer Date Recorded Are you in a relationship wi th someone who hurts you emotionally and/or physically? No 02/20/2025 Food Insecurity Answer Date Recorded Patient needs follow up regardin 03/30/2025 Transportation Needs Answer Date Record ed Patient needs follow up regardin 03/30/2025 Housing Stability Answer Date Recorded Social/Environmental Concerns No concerns Utility Needs Answer Date Recorded Patient needs follow up regardin 03/30/2025 Comments No Sex and Gender Information Value Date Recorded Sex Assigned at Female 08/21/2024 7:07 PM CDT Legal Sex Female 11:57 PM WORK ORDER CLERK Gender Identity Female 08/21/2024 7:07 PM CDT Sexual Orientation Straight 08/21/2024 7: 07 PM CDT Last Filed Vital Signs Vital Sign Reading Time Taken Comments Blood Pressure 142/97 02/20/2025 11:00 PM CDT Pulse 79 02/20/2025 11:00 PM CDT Temperature 36.7 C (98.1 F) 02/20/2025 8:20 PM CDT Respiratory Rate 16 02/20/2025 11:00 PM CDT Oxygen Saturation 98% 02/20/2025 11:00 PM CDT Inhaled Oxygen Concentration - - Weight 108 kg (238 lb 3.2 oz) 02/20/2025 8:20 PM CDT Height 172.7 cm (5' 8 ) 02/20/2025 8:20 PM CDT Body Mass Index 36.22 02/20/2025 8:20 PM CDT Plan of Treatment Health Maintenance Due Date Last Done Comments DIABETES ANNUAL FOOT EXAM 1997 DIABETES ANNUAL RETINAL EXAM 1997 DIABETES MICROALBUMIN ANNUAL SCREEN 1997 LDL CHOLESTEROL ANNUAL 1997 HEPATITIS B VACCINES (1 of 3 - 19+ 3-dose series) 1998 HPV/Cotest (21-29) 2000 CERVICAL CANCER SCREENING 2009 HPV/Cotest (30-65) 2009 PAP SMEAR 2009 BREAST CANCER SCREENING 2019 COLORECTAL SCREENING 2024 Colorectal Cancer Screening 2024 FIT-DNA Q 3 years 2024 FIT/FOBT Q 1 year 2024 Flex Sig/CT Colonography Q 5 years 2024 INFLUENZA VACCINE (#1) 2025 11/21/2013 DIABETES HBA1C Q 6 MONTHS 11/13/20252024, 07/25/2024, 01/10/2024, Additional history exists DTAP/TDAP/TD VACCINES (2 - Tdap) 11/23/2025 11/23/20 15 HPV VACCINES (No Doses Required) Completed Medical Devices Implanted Type Area Daytime Caregiver Device Identifier Shelf Expiration Date Model / Serial / Lot Mitraclip G4 Dlvry Sys Xtw No Chrg [id number] - [id number] Implanted:Qty : 1 on 09/08/2024 by Jerald Rios MD at [facility] Cardiovascular Device N/A: Heart [employer] [id number] 04/06/2025 [id number] / / [id number] Closure Perclose Prostyle Sut Mediate [id number] - [id number] Implanted:Qty : 1 on 09/08/2024 by Jerald Rios MD at [facility] Closure Device N/A: Groin [employer] [id number] 05/25/2026 [id number] / / [id number] Procedures Procedure Name Priority Date/Time Associated Diagnosis Comments HEMOGLOBIN A1C Routine 07/25/2024 11:36 PM CDT from Last 3 Months or Most Recently Relevant to Health Maintenance Results * (ABNORMAL) HEMOGLOBIN A1C (07/25/2024 11:36 PM CDT) HEMOGLOBIN A1C 7.2(H) <=5.6 % 07/30/2024 9:52 AM CDT [facility] EST. AVG GLUCOSE, A1C 160 mg/dL 07/30/2024 9:52 AM CDT [facility] Blood Venipuncture / Unknown 07/25/2024 11:36 PM CDT 07/25/2024 11:46 PM CDT Narrative [facility] - 07/30/2024 9:52 AM CDT HGB A1C INTERPRETATION NORMAL: <5.7% PRE-DIABETES: 5.7 - 6.4% DIABETES: 6.5% OR GREATER Edilberto Pascal DO CHEMISTRY ORDERABLES Final R esult [facility] CLIA # [id number] [address] [place] [phone] from Last 3 Months or Most Recently Relevant to Health Maintenance Insurance [facility] [id number] * Guarantor: VENKATESH ANNA Account Type Relation to Patient Date of Phone Billing Address Personal/Family [address] [place] [address] RX INFOCROSSING Medicaid Advance Directives For more information, please contact: [phone] * Full Code (Latest Code Status on File) Date Activated Date Inactivated Comments 11/06/2024 11:55 AM 11/15/2024 8:24 PM * Full Code Date Activated Date Inactivated Comments 09/08/2024 11:39 AM 09/11/2024 5:12 PM * Full Code Date Activated Date Inactivated Comments 09/08/2024 6:14 AM 09/08/2024 11:39 AM * Full Code Date Activated Date Inactivated Comments 07/25/2024 10:45 PM 07/29/2024 8:53 PM
--- OUTSIDE RECORDS SUMMARY | 2025-11-09 19:33 | XMS_ITS | Encounter Summary ---
Author Organization [facility] Address [address] [place] [address] Care Team Providers Care Councilperson Name Role Phone Unavailable Primary Care Provider Unavailabl e Reason for Visit * Reason Onset Date Comments Needs Appointment 05/09/2024 Follow Up 05/09/2024 Encounter Details Date Type Department Care Team (Late st Contact Info) Description 05/09/2024 Telephone [facility] [address] [address] [place] [address] Provider, Abstract NO ADDRESS ON FILE Needs Appointment; Follow Up Social History Tobacco Use Types Packs/Day Years Used Date Smoking Tobacco: Former Cigarettes Smokeless Tobacco: Never Alcohol Use Standard Drinks/Week Comments Not Currently 0 (1 standard drink = 0.6 oz pur e alcohol) Feeling Safe Answer Date Recorded Are you in a relationship wi th someone who hurts you emotionally and/or physically? No 04/23/2024 Comments No Sex and Gender Information Value Date Recorded Sex Assigned at Female 08/21/2024 7:07 PM CDT Legal Sex Female 11:57 PM [employer] Gender Identity Female 08/21/2024 7:07 PM CDT Sexual Orientation Straight 08/21/2024 7: 07 PM CDT documented as of this encounter Miscellaneous Notes * Telephone Encounter - Dominga Ornelas - 05/16/2024 10:34 AM CDT [facility] Call Center Communications Provider: Esdras , [facility], referring provider's office MESSAGE Caller states pt was recently hospitalized for cardiac issues. She inquires if pt can be seen sooner than 07/16/24 for her consult. Caller is faxing the discharge summary to our office for review. Fax number provided [phone]. Cardiology Technical Sales Associate: ERIC Russo * Telephone Encounter - Madison Jacob - 05/09/2024 11:04 AM CDT Called and got appt scheduled sent a message to EP nurses if she can get a sooner appt. * Telephone Encounter - Tigist Thayer - 05/09/2024 8:14 AM CDT [facility] Call Center Communications Consult (Provider) MESSAGE Calling to schedule referral Cardiology Technical Sales Associate: Tigist documented in this encounter Plan of Treatment Not on file documented as of this encounter Visit Diagnoses Not on filedocumented in this encounter Additional Health Concerns Infection Onset Date Last Indicated Resolved Time R/O Respiratory 07/25/2024 07/25/2024 07/25/2024 1 0:12 PM CDT R/O COVID-19 02/20/2025 02/20/2025 02/20/2025 8:50 PM CDT documented as of this encounter
[2025-11-09 20:16] LABS: Glucose Urine UA Negative (Normal); Nitrate Urine Negative (Negative); Specific Gravity, Urine 1.026 (1.005-1.030)
[2025-11-09 20:19] LABS: Reflex Lactate Order REFLEX LACTIC ORDERD
--- NOTE | 2025-11-09 20:21 | PC.NURSE ---
pts. bp 116/71 pt. questioning medication at this time states pcp said this med will drop her too low with her bp this RN talked with provider rodney and he said we can hold meds for now
[2025-11-09 20:44] LABS: UA Slide Review UA Slide Review Perf
--- NOTE | 2025-11-09 20:49 | ECG_ITS ---
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 Measurements Intervals [place] Rate: 100 P: 69 AK: 177 QRS: 45 QRSD: 110 T: 68 QT: 390 QTc: 503 Interpretive Statements SINUS TACHYCARDIA POSSIBLE LEFT ATRIAL ENLARGEMENT [-0.1mV P-WAVE IN V1/V2] NONSPECIFIC T-WAVE ABNORMALITY ABNORMAL RHYTHM ECG Compared to ECG 11/09/2025 18:59:25 No significant changes Electronically Signed On 11-10-2025 21:26:42 MARKETING AMBASSADOR by Fina Topete M.D. [email or web address] [id number]
--- NOTE | 2025-11-09 21:24 | PC.NURSE ---
Report given to Tierra CARDOZO at [id number]
[2025-11-09 21:37] LABS: Lactic Acid level (Lactate) 1.8 mmol/L (0.5-2.2)
[2025-11-09 21:44] LABS: Digoxin 0.3 ng/mL (0.6-1.2)
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
[2025-11-09 22:41] LABS: Thyroid Stimulating Hormone 8.23 uIU/mL (0.27-4.20)
[2025-11-09] MEDS: FUROsemide 10 mg/mL SDV 2mL 20 MG IVP (23:05)
--- NOTE | 2025-11-10 00:38 | ECG_ITS ---
[facility] Test Date: 2025-11-10 Pat Name: Sarah Curtis Department: Room: 108 Gender: Female Flight Control Manager: : 1980 Requested By: Sarahi Richey Order Number: [id number] Rosa Maria MD: Fina Topete M.D. Measurements Intervals [place] Rate: 103 P: -43 MT: 256 QRS: 57 QRSD: 104 T: 81 QT: 429 QTc: 564 Interpretive Statements SINUS TACHYCARDIA WITH FIRST DEGREE AV BLOCK NONSPECIFIC T-WAVE ABNORMALITY Compared to ECG 11/09/2025 20:49:18 First degree AV block now present T-wave abnormality still present Electronically Signed On 11-10-2025 21:47:13 WAREHOUSE ASSOCIATE by Fina Topete M.D. [id number] [id number]
[2025-11-10 01:06] LABS: Troponin 5 6HR 11.03 ng/L (0-10); Troponin 5 6HR Delta 1.03 ng/L (0-12)
[2025-11-10 01:09] LABS: Anion Gap 16.6 (5-19); Blood Urea Nitrogen 8 mg/dL (6-20); Calcium 8.9 mg/dL (8.5-10.5); Carbon Dioxide 26 mmol/L (22-29); Chloride 98 mmol/L (98-107); Glucose 230 mg/dL (65-115); Osmolality Calculated 290 mOsm/kg (285-295); Potassium 3.6 mmol/L (3.5-5.1); Sodium 137 mmol/L (136-145)
[2025-11-10 03:38] VITALS: O2SAT 93
[2025-11-10 03:54] VITALS: BP 133/83; PULSE 107; RESP 23; TEMP 36.5; O2SAT 93
[2025-11-10 07:18] VITALS: BP 118/86; PULSE 106; RESP 17; TEMP 36.4; O2SAT 94
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
--- NOTE | 2025-11-10 09:27 | P.CONIM_ITS ---
Providers/Reason For Consult 2 Consulting Physician/Specialty*: JEFF Topete MD/cardiology Reason for Consult*: Patient is a current near syncope/syncope/cardiomyopathy/implantable device nearing URI Requesting Physician: Ella Del Rosario NP Attending Physician: Ella Del Rosario NP History of Present Illness History of Present Illness Sarah Curtis is a 45 year old female is admitted to the hospital through the emergency room where she presented with complaints of several episodes of near syncope and 1 episode of syncope?. She was found to be tachycardic on the telemetry in the emergency room. She is known to have cardiomyopathy with severe LV dysfunction, severe mitral regurgitation and ventricular arrhythmia. Cardiology consult is requested for further cardiac evaluation recommendations. This patient is known to have nonischemic cardiomyopathy, status post ICD implantation, status post mitral valve replacement, currently with a severe mitral regurgitation, has been to various hospitals for her cardiac problems. She was seen in the [facility] for a while and was then evaluated at the [facility] in [place] for possible mitral valve replacement. Most recently she was seen in a hospital in [place] and was recommended for LVAD placement. The details are not available She had a ventricular fibrillation, intermittent atrial fibrillation and episodes of nonsustained ventricular tachycardia in the device telemetry. She is on long-term oral anticoagulation. She had a ICD interrogation in the emergency room last night. She had 2 brief episodes of nonsustained ventricular tachycardia on the device telemetry. No V- fib or any significant other arrhythmias. Initially she been having episodes of hypotension causing near syncopal symptoms/syncopal episodes. It was found out that the patient has alpha gal syndrome and the beef intake is causing hypotension and the near syncopal episodes. Since she stopped consuming the beef, she has not had any episodes of near syncope or syncope. For the last week or so, she and the whole household been having some type of viral infection. She was feeling weak and tired. Yesterday she had a several episodes of near syncope? 6 times. She had an episode of syncope while sitting in the car waiting for her son to come back from shopping She also was found to have heart rate in the 110s and 120s. She has a history of posttraumatic stress disorder. She attributes the tachycardia/passing out spells to the stress situation. She denies any chest pain. Has not had any fever or chills. However she been having cough . The upper respiratory symptoms seems to be slowly improving. No other specific complaints at this time. Medications/Allergies Home Medications ?Medication ?Instructions ?Recorded ?Confirmed ?Last Taken ?Type furosemide 20 mg tablet (Lasix) 20 mg PO DAILY 5 11/09/25 Unknown History rivaroxaban 2.5 mg tablet (Xarelto) 2.5 mg PO BID #180 tabs 09/15/25 11/09/25 Unknown Rx levalbuterol HCl 1.25 mg/3 mL 1.25 mg (3 mL) inhalatio n Q6H.RESP 11/10/25 Unknown Rx solution for nebulization 30 days #360 mL metoprolol tartrate 25 mg tablet 25 mg PO BID@0900,210 0 30 days #60 11/10/25 Unknown Rx tabs Allergies Allergy/AdvReac Type Severity Reaction Status Date / Time Alpha-Gal Allergy Unknown Unknown Verified 10/13/25 23:41 (Eylofywrl-Sxati-1,3-Gala NSAIDS (Non-Steroidal Allergy Unknown Verified 10/13/25 23:41 Anti-Inflamma Penicillins Allergy ADR-Blurry Verified 10/13/25 23:41 Vision Current Medications Generic Name Dose Route Start Last Admin Trade Name Freq PRN Reason Stop Dose Admin Furosemide 20 mg 11/10/25 05:00 11/10/25 05:39 Furosemide 20 Mg Tablet PO 20 mg DAILY UNA Administration Metoprolol Tartrate 25 mg 11/10/25 09:00 11/10/25 08:53 Metoprolol Tartrate 25 Mg Tablet PO 25 mg BID@0900,2100 UNA Administration PFSH Acute 2 PFSH: Medical History Medication management Otitis media Tick bite Low left ventricular ejection fraction QT prolongation Intermittent atrial fibrillation History of pulmonary embolism, spontaneous and LV thrombus Nonsustained ventricular tachycardia Abnormal nuclear stress test Atypical chest pain cardiomyopathy Asthma Pacemaker Heart failure Cardiomyopathy Surgical History AICD (automatic cardioverter/defibrillator) present S/P cholecystectomy H/O section Family History Other CAD (coronary artery disease) Diabetes Social History Smoking and tobacco/nicotine status: former use of tobacco/nicotine Quit status (tobacco/nicotine): has quit using Year quit tobacco: 2021 Former quit date comment: Smoked from age [age] average pack a day Alcohol intake: former Substance/Drug Use: current Substance/Drug use frequency: few times a week Other substance/drug use details: Few hits of marijuana for anxiety and insomnia Additional social history: She is single mother of 8 kids of a brainstem aneurysm in 2019. Youngest child is 13. 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 Patient wants full code as discussed with Jean Pierre Solorzano MD on 11/09/2025. Patient states she is yarsanism Anabaptist. 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 Not in any acute distress. HEENT: No significant pallor, icterus or lymphadenopathy.Oral cavity: There are no mucous membrane lesions. NECK: Trachea appears to be central. No masses noted. No JVD or thyromegaly appreciated. RESPIRATORY: Chest is symmetrical. No intercostals muscle retraction or any accessory muscle activation. There is no chest wall tenderness. Breath sounds are heard bilaterally. No rales or rhonchi heard. No evidence of any consolidation. BREASTS: Deferred. HEART: The heart sounds are normal. No S3 or S4. Systolic murmur grade 4 or 6 in the left sternal border. No diastolic murmurs.. No pericardial rub ABDOMEN: No vessel pulsations or distention. No tenderness. No organomegaly appreciated. Bowel sounds are normally heard. : Deferred. RECTAL: Deferred. LYMPHATIC: No lymphadenopathy noted in the neck. EXTREMITIES: No edema or cyanosis. No clubbing. MUSCULOSKELETAL: No acute joint deformities or swelling SKIN: There are no significant rashes or ecchymosis NEUROPSYCHIATRIC: The patient is alert and oriented x3. Appears to be in a good mood. No tremors or rigidity noted. Data 11/09/25 18:24 11/10/25 00:33 Other Labs: Laboratory Last Values WBC 8.25 10^3/uL (3.29-11.43) 11/09/25 18: RBC 4.81 10^6/uL (3.85-5.65) 11/09/25 18:24 Hgb 13.90 g/dL (11.27-16.99) 11/09/25 18:24 Hct 43.2 % (36-47) 11/09/25 18:24 MCV 89.8 fl (85-98) 11/09/25 18:24 MCH 28.9 pg (27-33) 11/09/25 18:24 MCHC 32.2 g/dL (30-55) 11/09/25 18:24 RDW 13.4 % (12.1-15.1) 11/09/25 18:24 Plt Count 307 10^3/cmm (157-399) 11/09/25 18:24 MPV 9.4 fL (7.4-10.4) 11/09/25 18:24 Neut % (Auto) 65.5 % 11/09/25 18:24 Lymph % (Auto) 27.3 % 11/09/25 18:24 [place] % (Auto) 5.1 % 11/09/25 18:24 Eos % (Auto) 1.1 % 11/09/25 18:24 Baso % (Auto) 0.6 % 11/09/25 18:24 Neut # (Auto) 5.41 10^3/uL (1.8-7.7) 11/09/25 18:24 Lymph # (Auto) 2.3 10^3/uL (0.8-4.8) 11/09/25 18:24 [place] # (Auto) 0.4 10^3/uL (0.2-0.9) 11/09/25 18:24 Eos # (Auto) 0.1 10^3/uL (0.0-0.8) 11/09/25 18:24 Baso # (Auto) 0.1 10^3/uL (0.0-0.1) 11/09/25 18:24 Nucleated RBC % (auto) 0 % 11/09/25 18:24 Nucleated RBCs # 0.0 /100WBC 11/09/25 18:24 PT 13.40 SECONDS (12.1-14.9) 11/09/25 18:24 INR 0.96 (0.8-1.2) 11/09/25 18:24 APTT 27.6 SECONDS (23.9-36.7) 11/09/25 18:24 Sodium 137 mmol/L (136-145) 11/10/25 00:33 Potassium 3.6 mmol/L (3.5-5.1) 11/10/25 00:33 Chloride 98 mmol/L (98-107) 11/10/25 00:33 Carbon Dioxide 26 mmol/L (22-29) 11/10/25 00:33 Anion Gap 16.6 (5-19) 11/10/25 00:33 BUN 8 mg/dL (6-20) 11/10/25 00:33 Creatinine 0.5 mg/dL (0.5-0.9) 11/10/25 00:33 GFR Calculation 132.8 mL/min (90-130) H 11/10/25 00:33 Glucose 230 mg/dL (65-115) H 11/10/25 00:33 Calculated Osmolality 290 mOsm/kg (285-295) 11/10/25 00:33 Lactic Acid 2.3 mmol/L (0.5-2.2) H 11/09/25 18:24 Lactic Acid (Sepsis) 1.8 mmol/L (0.5-2.2) 11/09/25 21:18 Calcium 8.9 mg/dL (8.5-10.5) 11/10/25 00:33 Total Bilirubin 0.7 mg/dL (0.15-1.2) 11/09/25 18:24 AST 48 U/L (0-32) H 11/09/25 18:24 ALT 43 U/L (0-33) H 11/09/25 18:24 Alkaline Phosphatase 102 U/L (35-105) 11/09/25 18:24 Troponin T Baseline 10 ng/L (0-10) 11/09/25 18:24 Troponin T 60 Minute 10.43 ng/L (0-10) H 11/09/25 19:21 Delta Troponin T 0.43 ABS# (0-10) 11/09/25 19:21 Troponin T Hi Sens 6Hr 11.03 ng/L (0-10) H 11/10/25 00:33 Troponin T Hi Sens 6Hr Delta 1.03 ng/L (0-12) 11/10/25 00:33 NT-Pro-B Natriuret Pep 786 pg/mL (0-125) H 11/09/25 18:24 Total Protein 7.0 g/dL (6.6-8.7) 11/09/25 18:24 Albumin 4.1 g/dL (3.5-5.2) 11/09/25 18:24 Globulin 2.9 g/dL (1.3-4.6) 11/09/25 18:24 Lipase 46 U/L (13-60) 11/09/25 18:24 TSH 8.23 uIU/mL (0.27-4.20) H 11/09/25 18:24 Urine Color Yellow (Yellow) 11/09/25 20:04 Urine Appearance Clear (CLEAR) 11/09/25 20: Urine pH 5.0 (5-7) 11/09/25 20:04 Ur Specific Drums 1.026 (1.005-1.030) 11/09/25 20:04 Urine Protein 2+ (Negative) A 11/09/25 20:04 Urine Glucose (UA) Negative (Normal) 11/09/25 20: Urine Ketones Negative (Negative) 11/09/25 20: Urine Blood Negative (Negative) 11/09/25 20:04 Urine Nitrate Negative (Negative) 11/09/25 20: Urine Bilirubin Negative (Negative) 11/09/25 20: Urine Urobilinogen 1.0 mg/dL (Negative) 11/09/25 20:04 Ur Leukocyte Esterase Negative (Negative) 11/09/25 20:04 Urine RBC 0-2 /hpf (0-2) 11/09/25 20:04 Urine WBC 0-5 /hpf (0-5) 11/09/25 20:04 Ur Squamous Epith Cells 0-5 /hpf (0-5) 11/09/25 20:04 Calcium Oxalate Crystal 5-10 /hpf H 11/09/25 20:04 Amorphous Sediment Not Reportable 11/09/25 20:04 Urine Bacteria None seen /hpf (NONE) 11/09/25 20:04 Hyaline Casts 2.05 /lpf 11/09/25 20:04 Digoxin 0.3 ng/mL (0.6-1.2) L 11/09/25 18:24 Micro: Microbiology 11/09/25 19:23 Blood Culture - Preliminary Blood SPECIMEN COLLECTED 11/09/25 19:21 Blood Culture - Preliminary Blood SPECIMEN COLLECTED EKG 1: My Interpretation: EKG showed sinus tachycardia with a rate of 103 bpm. Diffuse nonspecific T wave changes. Borderline first-degree AV block A&P Assessment and plan 1. Near syncope: The etiology of the recurrent near syncope/syncope is unclear. No significant arrhythmias on the device telemetry. Possibility of hypotension or stress disorder causing this are considerations. Hemodynamically she seems to be stable. She seems to be normal sinus rhythm/sinus tachycardia at this point. 2. cardiomyopathy: Patient is known to have cardiomyopathy with a LV ejection fraction around 35 to 40% based on the echocardiogram in January. 3. Severe mitral regurgitation: According the patient, surgery was discussed during her most recent evaluation by the cardiology service in [place]?. Finally the patient was told that she may be better off with an LVAD?. Details are not available. 4. Chronic systolic (congestive) heart failure: Patient is not on any heart failure medications at this point. Apparently she was taken off all these medications by her semiconductor processing group leader in [place]. 5. Type 2 diabetes mellitus without complications, unspecified whether halfway insulin use: Blood sugar seems to be under control. May continue on the current management. Plan: Since the patient was taken off amiodarone, digoxin and heart failure medications in the past by her cardiologists in [place], I may hold off on this for the time being. Will try to get the medical records from her most recent semiconductor processing group leader. She may be kept on a small dose of beta-lea, if the blood pressure tolerate. After reviewing the medical records from [place], further recommendations will be made. She is on Eliquis, which may be continued. May be appropriate to keep on a small dose of diuretic as well. After reviewing the medical records and also based on the patient's clinical progress, further recommendations will be made Thank you for the opportunity to evaluate to this patient make these recommendations PDMP PDMP Reviewed: Not Reviewed Coding Level of Care Code 38635 Diagnoses Near syncope R55 cardiomyopathy O90.3 Severe mitral regurgitation I34.0 Chronic systolic (congestive) heart failure I50.22 Type 2 diabetes mellitus without complications, unspecified whether halfway insulin use E11.9 Diabetes mellitus terminal gauger supervisor insulin use: unspecified terminal gauger supervisor insulin use status Diabetes mellitus complication status: without complication
[2025-11-10] MEDS: silver sulfadiazine cream 1% 50 gm 1 APPLIC TOPICAL (11:03)
[2025-11-10 11:16] VITALS: PULSE 104; RESP 18; O2SAT 95
--- NOTE | 2025-11-10 11:44 | PC.NURSE ---
This person has arranged for pcp and heart care appointments to be scheduled. Patient did not want to wait. Clinics will contact patient.
[2025-11-10 11:53] VITALS: BP 118/86; PULSE 98; RESP 19; TEMP 36.6; O2SAT 97
== END 2025-11-10 11:55 | disposition home or self-care (01) ==
LOC: ER 20:04 → CSU 20:17
PROVIDERS: Admitting Provider Internal Medicine; Emergency Provider Emergency Medicine; Visit Provider Registered Nurse
DX: R55 Syncope and collapse (principal); R00.0 Tachycardia, unspecified; E11.9 Type 2 diabetes mellitus without complications; O90.3 Peripartum cardiomyopathy; Z91.014 Allergy to mammalian meats; Z95.810 Presence of automatic (implantable) cardiac defibrillator; Z95.1 Presence of aortocoronary bypass graft; Z86.711 Personal history of pulmonary embolism; J45.909 Unspecified asthma, uncomplicated; Z87.891 Personal history of nicotine dependence; Z82.49 Family history of ischemic heart disease and other diseases of the circulatory system
CPT/HCPCS: 36415; 71045; 80048; 80053; 80162; 81001; 83605; 83690; 83880; 84443; 84484; 85025; 85610; 85730; 87040; 93005; 94640; 94664; 99285; G0378; J1938; J7614; J9999

== ENCOUNTER 2025-11-12 13:36 | Emergency (ER) | payer MEDICAID, SELFPAY ==
[2025-11-12 13:36] VITALS: BP 116/87; PULSE 104; RESP 20; TEMP 36.9; O2SAT 96
--- OUTSIDE RECORDS SUMMARY | 2025-11-12 14:05 | XMS_ITS | Clinical Summary ---
Author Organization [facility] Martina [place] unty Address [address] [place] [address] Phone Care Team Providers Care Cook Box Filler Name Role Phone Unavailable Primary Care Provider [...] VACCINES (No Doses Required) Completed Insurance [place] RX INFOCROSSING Medicaid Advance Directives For more information, please contact: [phone] * Full Code (Latest Code Status on File) Date Activated Date Inactivated Comments 05/21/2020 1:15 PM 05/24/2020 7:05 PM
--- OUTSIDE RECORDS SUMMARY | 2025-11-12 14:05 | XMS_ITS | Clinical Summary ---
Author Organization [facility] Address [address] Hughesn: Epic Prelude ADT NIKOLAS SHRESTHA [address] Care Team Providers Care Head Sawyer Name Role Phone Unavailable Primary Care Provider [...] Pork Derived (Porcine) Other (See Comments) 09/05/2024 [employer] - NO PORK PRODUCTS Spironolactone Shortness of [...] check your blood sugars. 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 Gender Identity Female 08/21/2024 7:07 PM CDT [...] Required) Completed Medical Devices Implanted Type Area Load Checker Device Identifier Shelf Expiration Date Model / Serial / Lot Mitraclip G4 Dlvry Sys Xtw No Chrg [id number] - [id number] Implanted:Qty : 1 on 09/08/2024 by Jerald Rios MD at [facility] Cardiovascular Device N/A: Heart [employer] [id number] 04/06/2025 [id number] / / [id number] Closure Perclose Prostyle Sut Mediate [id number] - [id number] Implanted:Qty : 1 on 09/08/2024 by Jerald Rios MD at [facility] Closure Device N/A: Groin [employer] [id number] 05/25/2026 [id number] / / [id number] Procedures Procedure Name Priority Date/Time Associated Diagnosis Comments HEMOGLOBIN A1C Routine 07/25/2024 11:36 PM CDT from Last 3 Months or Most Recently Relevant to Health Maintenance Results * (ABNORMAL) HEMOGLOBIN A1C (07/25/2024 11:36 PM CDT) HEMOGLOBIN A1C 7.2(H) <=5.6 % 07/30/2024 9:52 AM CDT [facility] [employer] [facility] EST. AVG GLUCOSE, A1C 160 mg/dL 07/30/2024 9:52 AM CDT [facility] Blood Venipuncture / Unknown 07/25/2024 11:36 PM CDT 07/25/2024 11:46 PM CDT Narrative [facility] - 07/30/2024 9:52 AM CDT HGB A1C INTERPRETATION NORMAL: <5.7% PRE-DIABETES: 5.7 - 6.4% DIABETES: 6.5% OR GREATER us Edilberto Pascal DO CHEMISTRY ORDERABLES Final R esult [facility] CLIA # [id number] [address] [place] [id number] from Last 3 Months or Most Recently Relevant to Health Maintenance Insurance [facility] [id number] * Guarantor: VENKATESH ANNA Account Type Relation to Patient Date of Phone Billing Address Personal/Family [address] [place] [address] RX INFOCROSSING Medicaid Advance Directives For more information, please contact: [phone] * Full Code (Latest Code Status on [...]
--- OUTSIDE RECORDS SUMMARY | 2025-11-12 14:05 | XMS_ITS | Encounter Summary ---
Author Organization [facility] Address [address] [place] [address] Care Team Providers Care Architect Name Role Phone Unavailable Primary Care Provider Unavailabl e Reason for Visit * Reason Onset Date Comments Needs Appointment 05/09/2024 Follow Up 05/09/2024 Encounter Details Date Type Department Care Team (Late st Contact Info) Description 05/09/2024 Telephone [facility] 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 She inquires if pt can be seen sooner than 07/16/24 for her consult. Caller is faxing the discharge summary to our office for review. Fax number provided [phone]. Cardiology Gas Fitter: ERIC Russo * Telephone Encounter - Madison Jacob - 05/09/2024 11:04 AM CDT Called and got appt scheduled sent a message to EP nurses if she can get a sooner appt. * Telephone Encounter - Tigist Thayer - 05/09/2024 8:14 AM CDT [facility] Call Center Communications Consult (Provider) MESSAGE Calling to schedule referral Cardiology Gas Fitter: Tigist documented in this encounter Plan of Treatment Not on file documented as of this encounter Visit Diagnoses Not on filedocumented in this encounter Additional Health Concerns Infection Onset Date Last Indicated Resolved Time R/O Respiratory 07/25/2024 07/25/2024 07/25/2024 1 0:12 PM CDT R/O COVID-19 02/20/2025 02/20/2025 02/20/2025 8:50 PM CDT documented as of this encounter
--- OUTSIDE RECORDS SUMMARY | 2025-11-12 14:05 | XMS_ITS | Encounter Summary ---
Author Organization [facility] Address 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
--- NOTE | 2025-11-12 14:10 | XR_ITS ---
WS: [id number] Portable AP upright chest, 11/12/2025 Clinical Data: dyspnea/cough Comparison: Portable chest, 11/09/2025 Findings: No nodules, masses or effusions are seen. The heart is enlarged. There is an artificial cardiac valve. The pulmonary vascularity is not increased. No pneumonia or pneumothorax is seen. The single lead cardiac pacemaker remains in the same position. There are monitor leads on the chest wall. XR/XR chest 1V portable [id number] Impression: No change in cardiomegaly and cardiac pacemaker.
--- NOTE | 2025-11-12 14:10 | ECG_ITS ---
[facility]25[facility]12 Pat Name: Sarah Curtis Department: Room: Gender: Female Records Management Coordinator: : 1980 Requested By: Atul Richey Order Number: [id number] Reading MD: Measurements Intervals [place] Rate: 104 P: 70 MO: 172 QRS: 68 QRSD: 105 T: 89 QT: 431 QTc: 569 Interpretive Statements SINUS TACHYCARDIA NONSPECIFIC T-WAVE ABNORMALITY ABNORMAL RHYTHM ECG No previous ECG available for comparison [id number]
[2025-11-12 14:17] LABS: Hematocrit 42.6 % (36-47); Hemoglobin 14.40 g/dL (11.27-16.99); Mean Corpuscular HGB Conc 33.8 g/dL (30-55); Mean Corpuscular Hemoglobin 29.7 pg (27-33); Mean Corpuscular Volume 87.8 fl (85-98); Nucleated Red Blood Cells % 0 %; Platelet Count 320 10^3/cmm (157-399); Red Blood Count 4.85 10^6/uL (3.85-5.65); White Blood Count 8.25 10^3/uL (3.29-11.43)
--- NOTE | 2025-11-12 14:26 | W.ED.SYNCOPE ---
HPI - Syncope General: Chief Complaint: Syncope Stated Complaint: WEAKNESS Time Seen by Provider: 11/12/25 14:03 History of Present Illness: 45-year-old female presents to the emergency room reporting she has a history of cardiomyopathy. She was recently hospitalized they had made some medication adjustments. She has had some cough and cold-like symptoms that she did help the neighbor move recently feel like she overexerted herself. She has some sore throat symptoms she denies having any chest pain she generally feels weak she felt like she nearly passed out earlier. She reports her cardiomyopathy was worsening again after echocardiogram she had done at an outpatient facility. Associated symptoms: Deny abdominal pain, chest pain or fever(s) Related Data Home Medications ?Medication ?Instructions ?Recorded ?Confirmed furosemide 20 mg tablet (Lasix) 20 mg PO DAILY 09/15/25 11/09/25 Previous Rx's ?Medication ?Instructions ?Recorded rivaroxaban 2.5 mg tablet (Xarelto) 2.5 mg PO BID #180 tabs 09/15/25 levalbuterol HCl 1.25 mg/3 mL 1.25 mg (3 mL) inhalation Q6H.RESP 11/10/25 solution for nebulization 30 days #360 mL metoprolol tartrate 25 mg tablet 25 mg PO BID@0900,2100 30 days #60 11/10/25 tabs Allergies Allergy/AdvReac Type Severity Reaction Status Date / Time Alpha-Gal Allergy Unknown Unknown Verified 11/12/25 13:51 (Habmfzkwr-Zitkm-8,3-Gala NSAIDS (Non-Steroidal Allergy Unknown Verified 11/12/25 13:51 Anti-Inflamma Penicillins Allergy ADR-Blurry Verified 11/12/25 13:51 Vision Review of Systems Const: Denies: fever(s) or chills Card: Denies: chest pain Resp: Denies: dyspnea GI: Denies: abdominal pain : Denies: dysuria, urinary frequency or urinary urgency Musc: Denies: neck pain or back pain Skin/Breast: Denies: rash PFSH ED PFSH: Medical History Medication management Otitis media Tick bite Low left ventricular ejection fraction QT prolongation Intermittent atrial fibrillation History of pulmonary embolism, spontaneous and LV thrombus Nonsustained ventricular tachycardia Abnormal nuclear stress test Atypical chest pain cardiomyopathy Asthma Pacemaker Heart failure Cardiomyopathy Surgical History AICD (automatic cardioverter/defibrillator) present S/P cholecystectomy H/O section Family History Other CAD (coronary artery disease) Diabetes Social History Smoking and tobacco/nicotine status: former use of tobacco/nicotine Quit status (tobacco/nicotine): has quit using Year quit tobacco: 2021 Former quit date comment: Smoked from age [age] average pack a day Alcohol intake: former Substance/Drug Use: current Substance/Drug use frequency: few times a week Other substance/drug use details: Few hits of marijuana for anxiety and insomnia Additional social history: She is single mother of 8 kids of a brainstem aneurysm in 2019. Youngest child is 13. 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 Patient wants full code as discussed with Jean Pierre Solorzano MD on 11/09/2025. Patient states she is restoration Zoroastrianism. 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 Physical Exam Const: GENERAL APPEARANCE: cooperative ORIENTATION/CONSCIOUSNESS: Yes awake, Yes oriented to person, Yes oriented to place and Yes oriented to time HENMT: COMMON NORMALS: normocephalic, atraumatic and hearing grossly normal bilaterally HEAD & SCALP: normocephalic and atraumatic Resp: COMMON NORMALS: normal respiratory effort, No retractions, No use of accessory muscles and clear to auscultation bilaterally AUSCULTATION: clear to auscultation bilaterally Cardio: COMMON NORMALS: regular rate, regular rhythm and No murmurs present (Cardio) RATE: regular rate RHYTHM: regular rhythm GI: COMMON NORMALS: Soft to palpation and No hepatosplenomegaly present AUSCULTATION: Yes normoactive bowel sounds PALPATION: Yes Soft to palpation, No Tenderness to palpation present (GI), No Guarding due to palpation present (GI) and Yes No hepatosplenomegaly present Extremity: COMMON NORMALS: normal to inspection, capillary refill normal, no clubbing, cyanosis or edema, no calf tenderness and no pedal edema Neuro: SENSORIUM/ORIENTATION: Yes oriented to person, Yes oriented to place and Yes oriented to time Skin: COMMON NORMALS: no rashes or lesions noted GENERAL SKIN EXAM: no rashes or lesions noted Course Vital Signs: Vital signs: Vital Signs Temperature 98.4 F 11/12/25 13:36 Pulse Rate 96 11/12/25 18:35 Respiratory Rate 16 11/12/25 17:51 Blood Pressure 117/70 11/12/25 18:35 Pulse Oximetry 94 11/12/25 18:35 Oxygen Delivery Me thod Room Air 11/12/25 17:51 MDM - Syncope Medical Decision Making Medical decision making Social determinants: None I reviewed the patient's medical record. Reviewed most recent hospitalizations. I reviewed the patient's current home meds. Alternate historians: None Differential diagnosis: Syncopal episode viral upper respiratory infection Lab Review: Labs reviewed CBC unremarkable. Chemistry showed a glucose of 166 renal function electrolytes normal slight elevation of AST and ALT at 47 and 38 respectively T. bili normal urine shows 2+ protein no signs of infection. Imaging:Unremarkable chest x-ray pacemaker in place no cardiac fusions no increased vascular markings Assessment of risk Level of risk: Moderate Hospitalization considerations: Pending review of workup given her cardiac history may require hospitalization Reexamination: Patient reports feeling better. Assessment and plan: No significant findings reviewed recent hospitalization. She recently stopped digoxin and amiodarone she has not had any arrhythmias while she has been here. Reviewing her old records there was a echocardiogram that showed a cardiomyopathy but a follow-up echo was normal. She reports that since then she has been to [facility] and had worsening heart function and they had talked about either transplant or placing her on an LVAD. She did not had any arrhythmias here. No signs of decompensated heart failure. Have her follow-up with outpatient cardiology as previously planned. Lab Data 11/12/25 12:17 11/12/25 12:17 Radiology Impressions Chest X-Ray 11/12/25 14:10 Impression: No change in cardiomegaly and cardiac pacemaker. Laboratory Results WBC 8.25 10^3/uL (3.29-11.43) 11/12/25 12:17 RBC 4.85 10^6/uL (3.85-5.65) 11/12/25 12:17 Hgb 14.40 g/dL (11.27-16.99) 11/12/25 12:17 Hct 42.6 % (36-47) 11/12/25 12:17 MCV 87.8 fl (85-98) 11/12/25 12:17 MCH 29.7 pg (27-33) 11/12/25 12:17 MCHC 33.8 g/dL (30-55) 11/12/25 12:17 RDW 13.5 % (12.1-15.1) 11/12/25 12:17 Plt Count 320 10^3/cmm (157-399) 11/12/25 12:17 MPV 9.7 fL (7.4-10.4) 11/12/25 12:17 Neut % (Auto) 63.9 % 11/12/25 12:17 Lymph % (Auto) 29.3 % 11/12/25 12:17 Barron % (Auto) 4.6 % 11/12/25 12:17 Eos % (Auto) 1.3 % 11/12/25 12:17 Baso % (Auto) 0.7 % 11/12/25 12:17 Neut # (Auto) 5.26 10^3/uL (1.8-7.7) 11/12/25 12:17 Lymph # (Auto) 2.4 10^3/uL (0.8-4.8) 11/12/25 12:17 Barron # (Auto) 0.4 10^3/uL (0.2-0.9) 11/12/25 12:17 Eos # (Auto) 0.1 10^3/uL (0.0-0.8) 11/12/25 12:17 Baso # (Auto) 0.1 10^3/uL (0.0-0.1) 11/12/25 12:17 Nucleated RBC % (auto) 0 % 11/12/25 12:17 Nucleated RBCs # 0.0 /100WBC 11/12/25 12:17 Sodium 137 mmol/L (136-145) 11/12/25 12:17 Potassium 4.0 mmol/L (3.5-5.1) 11/12/25 12:17 Chloride 98 mmol/L (98-107) 11/12/25 12:17 Carbon Dioxide 25 mmol/L (22-29) 11/12/25 12:17 Anion Gap 18.0 (5-19) 11/12/25 12:17 BUN 10 mg/dL (6-20) 11/12/25 12:17 Creatinine 0.5 mg/dL (0.5-0.9) 11/12/25 12:17 GFR Calculation 132.8 mL/min (90-130) H 11/12/25 12:17 Glucose 166 mg/dL (65-115) H 11/12/25 12:17 Calculated Osmolality 287 mOsm/kg (285-295) 11/12/25 12:17 Calcium 9.4 mg/dL (8.5-10.5) 11/12/25 12:17 Total Bilirubin 0.8 mg/dL (0.15-1.2) 11/12/25 12:17 AST 47 U/L (0-32) H 11/12/25 12:17 ALT 38 U/L (0-33) H 11/12/25 12:17 Alkaline Phosphatase 94 U/L (35-105) 11/12/25 12:17 Total Protein 7.4 g/dL (6.6-8.7) 11/12/25 12:17 Albumin 4.0 g/dL (3.5-5.2) 11/12/25 12:17 Globulin 3.4 g/dL (1.3-4.6) 11/12/25 12:17 Urine Color Dark yellow (Yellow) A 11/12/25 17:14 Urine Appearance Clear (CLEAR) 11/12/25 17:14 Urine pH 5.0 (5-7) 11/12/25 17:14 Ur Specific [place] 1.031 (1.005-1.030) H 11/12/25 17:14 Urine Protein 2+ (Negative) A 11/12/25 17:14 Urine Glucose (UA) Negative (Normal) 11/12/25 17:14 Urine Ketones Negative (Negative) 11/12/25 17:14 Urine Blood Negative (Negative) 11/12/25 17:14 Urine Nitrate Negative (Negative) 11/12/25 17:14 Urine Bilirubin Negative (Negative) 11/12/25 17:14 Urine Urobilinogen 1.0 mg/dL (Negative) 11/12/25 17:14 Ur Leukocyte Esterase Negative (Negative) 11/12/25 17:14 Urine RBC 0-2 /hpf (0-2) 11/12/25 17:14 Urine WBC 0-5 /hpf (0-5) 11/12/25 17:14 Ur Squamous Epith Cells 6-10 /hpf (0-5) 11/12/25 17:14 Amorphous Sediment Not Reportable 11/12/25 17:14 Urine Bacteria None seen /hpf (NONE) 11/12/25 17:14 Hyaline Casts 3.30 /lpf 11/12/25 17:14 Influenza A (PCR) Negative (Negative) 11/12/25 14:16 Influenza Type B (PCR) Negative (Negative) 11/12/25 14:16 RSV (PCR) Negative (Negative) 11/12/25 14:16 SARS-CoV-2 (PCR) Negative (Negative) 11/12/25 14:16 All radiology interpretation(s) finalized by discharge Discharge Plan Discharge Patient Disposition: Home Clinical Impression: Syncope Condition: Stable Prescriptions: No Action furosemide [Lasix] 20 mg tablet 20 mg PO DAILY rivaroxaban [Xarelto] 2.5 mg tablet 2.5 mg PO BID Qty: 180 1RF levalbuterol HCl 1.25 mg/3 mL Solution For Nebulization 1.25 mg inhalation Q6H.RESP 30 Days Qty: 360 0RF metoprolol tartrate 25 mg Tablet 25 mg PO BID@0900,2100 30 Days Qty: 60 0RF Discharge Orders: Discharge ED (Routine); Ordered 11/12/25 Ordered By: Atul Crockett Discharge Diet: Usual diet Patient Instructions: Opioid Safety, Pain Management, Patient Portal & Kashif Instructions Activity Restrictions/Additional Instructions: Thank you for choosing [facility] for your healthcare needs today. It is very important that you follow up as instructed or that you return to the Emergency Department should you have concerns or if your condition changes or worsens in any way. Emergency department visits are focused on emergent conditions, in some cases you may require further evaluation on an outpatient basis. You are seen today after a syncopal episode. Your laboratory test did not show any acute abnormalities. And blood pressures remained stable. Will discharge you home have you follow-up with your primary care doctor. Recommend decreasing Lasix every other day for the next 6 days (Please note that included in your discharge packet is information concerning opioid safety and pain management. This information is given to all patients were discharged from the ER regardless of their discharge diagnosis or the medicines they usually take or are prescribed.) Print Language: Icelandic Coding Level of Care Code ED Public Works Commissioner for Gi Vega
[2025-11-12 14:28] LABS: Alanine Aminotransferase 38 U/L (0-33); Albumin Level 4.0 g/dL (3.5-5.2); Alkaline Phosphatase 94 U/L (35-105); Anion Gap 18.0 (5-19); Aspartate Amino Transferase 47 U/L (0-32); Blood Urea Nitrogen 10 mg/dL (6-20); Calcium 9.4 mg/dL (8.5-10.5); Carbon Dioxide 25 mmol/L (22-29); Chloride 98 mmol/L (98-107); Globulin 3.4 g/dL (1.3-4.6); Glucose 166 mg/dL (65-115); Osmolality Calculated 287 mOsm/kg (285-295); Potassium 4.0 mmol/L (3.5-5.1); Sodium 137 mmol/L (136-145); Total Protein 7.4 g/dL (6.6-8.7)
[2025-11-12 15:05] LABS: Respiratory Syncytial Virus Ce NEGATIVE (Negative); SARS-CoV-2 PCR NEGATIVE (Negative)
[2025-11-12 15:49] VITALS: BP 111/77; PULSE 98; O2SAT 94
[2025-11-12 17:37] LABS: Glucose Urine UA Negative (Normal); Nitrate Urine Negative (Negative)
[2025-11-12 17:42] LABS: Add Urine Microscopic? YES
[2025-11-12 17:51] VITALS: PULSE 94; RESP 16; O2SAT 95
[2025-11-12 17:57] LABS: Specific Gravity, Urine 1.031 (1.005-1.030)
[2025-11-12 18:35] VITALS: BP 117/70; PULSE 96; O2SAT 94
== END 2025-11-12 18:36 | disposition home or self-care (01) ==
PROVIDERS: Emergency Provider Family Medicine
DX: R55 Syncope and collapse (principal); Z11.52 Encounter for screening for COVID-19; Z87.891 Personal history of nicotine dependence; Z95.0 Presence of cardiac pacemaker; I50.9 Heart failure, unspecified
CPT/HCPCS: 71045; 80053; 81001; 85025; 87637; 93005; 94640; 99285; J7030; J7614

== ENCOUNTER 2025-11-19 19:40 | Emergency (ER) | payer MEDICAID, SELFPAY ==
--- OUTSIDE RECORDS SUMMARY | 2025-11-12 03:37 | XMS_ITS | Continuity of Care Document ---
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 Name Role Phone Nurse Nrs, [facility] Unavailable Unavailable Allergies, Adverse Reactions, Alerts Substance Reaction Status Criticality Alpha-Gal (Qkpjfways-Ahemy-9,3-Galactose) Rash(moderate)Facial swelling(moderate) Active No Information licorice Active No Information ibuprofen heart stops Active No Information Penicillins Active No Information Medications Medication Instructions Dosage Dose Quantity Effective Dates (start - stop) Status Indication Fill Status Comments Ozempic 0.25 mg or 0.5 mg (2 mg/3 mL) subcutaneous pen injector inject (0.25MG) by subcutaneous route every week on the same day of each week 80 MG 1 tablet 5 - Active atorvastatin 80 mg tablet take 1 tablet by oral route every day 80 MG 1 tablet 5 - 7 Active digoxin 125 mcg (0.125 mg) tablet take 1 tablet by oral route every day 80 MG 1 tablet 5 - Active Xarelto 20 mg tablet take 1 tablet by oral route every day with the evening meal 80 MG 1 tablet - Active amiodarone 200 mg tablet take 1 tablet by oral route every day 200 MG 1 tablet - Active Problems Condition Type Effective Dates (start - stop) Diagnosed Date Clinical Status Comments Long QT syndrome Problem (finding) - Active (qualifier value) Chronic atrial fibrillation Problem (finding) - Active (qualifier value) Advance Directives Directive Yes / No Effective Date File Name No Information Encounters Encounter Description Practice Location Reason(s) For Visit Diagnoses Date Provider Encounter Disposition [facility], [address] [place] [address] Diony [place]oval, [place], [id number] , [place] tel:[phone] [facility] No Information 5 Nurse S. [address] [facility], [place], [place], [id number], [place]. tel: [phone] [facility], [address] [place] [address] [place], [place], [id number] , [place] tel: [phone] [facility] Diabetes/HT N (chief complaint) Encounter for screening for malignant neoplasm of colonCardiomyopa thy, unspecified typeDM type 2 with diabetic dyslipidemia 5 Kelly Malone. [address] [facility] [place] [id number], [place]. tel: [phone] [facility], [address] [place] [address], [place], [id number] , [place] tel: [phone] [facility] DM type 2 with diabetic dyslipidemiaChro vlad atrial fibrillationMag[facility]uder Hospitali [facility] encounter 5 Reza Abraham. [address] [place], [id number], [place]. tel: [phone] [facility], [address] [place] [address], [place], [id number] , [place] tel: [phone] [facility] Pap (chief complaint) Screening for cervical cancer 5 Kelly Malone. [address] [place], [place], [id number], [place]. tel: [phone] [facility], [address] [place] [address] [place], [id number] , [place] tel: [phone] [facility] Dysphagia (chief complaint) Body mass index (BMI) 50-59.9 , adultOther dysphagia 5 Kelly Malone. [address] [place], [id number], [place]. tel: [phone] [facility], [address] [place] [address] [place], [place], [id number] , [place] tel: [phone] [facility] No Information 5 Kelly Malone. [address] [place], [id number], [place]. tel: [phone] [facility], [address] [place] [address] Diony [place], [place], [id number] , [place] tel: [phone] [facility] Blood work (chief complaint) Cardiomyopathy, unspecifiedCouns eling, unspecified 5 Nurse S. [address] [facility], [place], [place], [id number], [place]. tel: [phone] [facility], [address] [place] [address] Diony [place], [place], [id number] , [place] tel: [phone] [facility] Establish care (chief complaint) Body mass index (BMI) 35.0-35.9, adultCardiomyopa thy, unspecified typeChronic atrial fibrillationDM type 2 with diabetic dyslipidemiaMitr al valve insufficiency, unspecified etiology 5 Kelly Malone. [address] [place], [place], [id number], [place]. tel: [phone] [facility], [address] [place] [address] Diony [place], [place], [id number] , [place] tel: [phone] [facility] No Information 3 Kelly Malone. [address] [place], [place], [id number], [place]. tel: [phone] [facility], [address] [place] [address] Diony [place], [place], [id number] , [place] tel: [phone] [facility] Diabetes (chief complaint) Encounter for screening for eye and ear disordersType 2 diabetes mellitus with other specified complication 3 Kelly Malone. [address] [place], [place], [id number], [place]. tel: [phone] [facility], [address] [place] [address] Diony [place], [place], [id number] , [place] tel: [phone] [facility] Insulin check (chief complaint) Body mass index (BMI) 35.0-35.9, adultDM type 2 with diabetic dyslipidemia 2 Kelly Malone. [address] [place], [place], [id number], [place]. tel: [phone] [facility], [address] [place] [address] [place], [id number] , [place] tel: [phone] [facility] diabetes (chief complaint) Body mass index (BMI) 35.0-35.9, adultDM type 2 with diabetic dyslipidemia Nov- 2 Kelly Malone. [address] [place], [id number], [place]. tel: [phone] [facility], [address] [place] [address] [place], [place], [id number] , [place] tel: [phone] [facility] Follow Up of Hospital (chief complaint) DM type 2 with diabetic dyslipidemiaHype rlipidemia, unspecified 2 Kelly Malone. [address] [place], [place], [id number], [place]. tel: [phone] [facility], [address] [place] [address] [place], [place], [id number] , [place] tel: [phone] [facility] Foot Pain (chief complaint) History of cellulitis 2 Kelly Malone. [address] [place], [id number], [place]. tel: [phone] [facility], [address] [place] [address], [place], [id number] , [place] tel: [phone] [facility] f/u (chief complaint)n europathy (chief complaint) Body mass index (BMI) 32.0-32.9, adultNumbness and tingling in both handsParesthesia of skinCardiomyopat hy, unspecified type 2 Kelly Malone. [address] [place], [id number], [place]. tel: [phone] [facility], [address] [place] [address] [place], [place], [id number] , [place] tel: [phone] [facility] Encounter for dental exam and cleaning w/o abnormal findings Jan- 2 Nba Tong. [address] [facility], [id number], [place]. tel: [phone] [facility], [address] [place] [address] Do[place], [place], [id number] , [place] tel: [phone] [facility] Sleep study referral (chief complaint)s leep apnea (chief complaint) Chronic pulmonary embolism without acute cor pulmonale, unspecified pulmonary embolism typeSuspected sleep apneaHypoxiaChro vlad atrial fibrillation 2 Kelly Kira. [address] [place] [address], [place], [id number], [place]. tel: [phone] [facility], [address] [place] [address] Diony Tan, [place], [id number] , [place] tel: [phone] [facility] Cardiology Referral (chief complaint) Body mass index (BMI) 34.0-34.9, adultCardiomyopa thy, unspecified typeChronic atrial fibrillationLong QT syndrome 2 Kelly Kira. [address] [place] [address], [place], [id number], [place]. tel: [phone] [facility], [address] [place] [address] Diony [place], [place], [id number] , [place] tel: [phone] [facility] Establish care (chief complaint) Body mass index (BMI) 34.0-34.9, adultLong QT syndromeChronic atrial fibrillationSmok ing addiction 0 Kelly Kira. [address] [place], [place] [address], [place], [id number], [place]. tel: [phone] Family History Family Member Type Diagnosis Age At Onset Father Problem Diabetes mellitus Paternal grandmother Problem malignant neoplasm o f ovary Immunizations Vaccine Date Status Comments MODERNA COVID-19; y+ refused Sourc e: New Immunization Record Influenza, Inj, PF Trivalent refused Source: New Immuniza tion Record Td (adult), adsorbed refused Source: New Immunization Record Tdap refused Source: New Imm unization Record MODERNA COVID-19; 12y+ refused Sourc e: New Immunization Record Tdap refused Source: New Imm unization Record Influenza, Inj, PF Trivalent not administered Source: New Immuniza tion Record MODERNA 12+ COVID-19 refused Source: New Immunization Record FLU 6mo+ refused Source: New Imm unization Record Td (adult), adsorbed refused Source: New Immunization Record Tdap refused Source: New Imm unization Record FLU 6mo+ refused Source: New Imm unization Record Tdap refused Source: New Imm unization Record PFIZER 12+ COVID-19 Tri-sucrose refused Source: New Immuniza tion Record FLU 6mo+ refused Source: New Imm unization Record Td (adult), adsorbed refused Source: New Immunization Record Tdap refused Source: New Imm unization Record MODERNA COVID-19 refused Source: New Immunization Record FLU 6mo+ refused Source: New Imm unization Record Td (adult), adsorbed refused Source: New Immunization Record Tdap refused Source: New Imm unization Record FLU 6mo+ refused Source: New Imm unization Record Tdap refused Source: New Imm unization Record Payers Payer name Insurance type Identifiers Authorization(s) [facility] Medicaid CI ID: [id number] Name: Coverage Status Eligibility Check on: [id number] ip to Subscriber: selfPayer Address: [address] [place] [address], [place], [id number], USPayer Phone: [phone] Medicaid CI Member ID:Subscr iber ID:Group Name: Coverage Status Eligibility Check on: [id number] ip to Subscriber: selfPayer Address: [address] [place] [address], [place], [id number] Phone: [phone] Medicaid CI Member ID:Subscr iber ID:Group Name: Coverage Status Eligibility Check on: [id number] ip to Subscriber: selfPayer Address: [address] [place], [place] [address], [place], [id number] Phone: [phone] Medicaid CI Member ID:Subscr iber ID:Group Name: Coverage Status Eligibility Check on: [id number] ip to Subscriber: selfPayer Address: [address], [place], [id number] Phone: [phone] Medicaid CI Member ID:Subscr iber ID:Group Name: Coverage Status Eligibility Check on: [id number] ip to Subscriber: selfPayer Address: [address], [place], [id number] Phone: [phone] Medicaid CI Member ID:Subscr iber ID:Group Name: Coverage Status Eligibility Check on: [id number] ip to Subscriber: selfPayer Address: [address], [place], [id number] Phone: [phone] Medicaid CI Member ID:Subscr iber ID:Group Name: Coverage Status Eligibility Check on: [id number] ip to Subscriber: selfPayer Address: [address], [place], [id number] Phone: [phone] Medicaid CI Member ID:Subscr iber ID:Group Name: Coverage Status Eligibility Check on: [id number] ip to Subscriber: selfPayer Address: [address], [place], [id number] Phone: [phone] Social History Type Description Quantity Date Captured Comments Alcohol Use Details Unknown Caffeine Use Details Unknown Tobacco Use Status No Information Smoking Status No Information Sex Female No - not Sexual Orientation Straight or heterosexual Oct Gender Identity Female Current Gender Female (finding) Chief Complaint And Reason For Visit No Information Plan Of Treatment Date Type Action Status Goal Retinal Eye Exam. Due on Jun due Goal Hemoglobin A1C. Due on due Goal GFR. Due on due Goal nursing educator. Due on due Goal Hep B (1st). Due on due Goal Lipid panel. Due on 026 due Goal Foot Exam - Comp rehensive. Due on due Goal Vision Aquity Sc reen. Due on due Goal Monofilament Quyen t Exam. Due on due Goal Foot exam. Due on due Goal Urine microalbumin. Due on A due Goal Influenza vaccine. Due on due Goal ASCVD 10 year risk. Due on due Goal Dilated eye exam. Due on Oct due Goal Vision Screen. Due on due Goal CMP. Due on due Goal Colorectal Cance r Screening. Due on due Goal Wcm-Dfbief-qsbrw. Due on Jul due Goal Td vaccine. Due on due Goal HIV-1/2 due Goal Hepatitis C screening due Goal Colonoscopy. Due on due Goal Tdap. Due on due Goal Tobacco screening. Due on due Goal Depression scree agustina. Due on due Goal Pneumococcal vac cine. Due on due Goal GAD7. Due on due Goal Sigmoidoscopy. Due on due Goal Vision Screen. Due on due Goal Hep B (1st). Due on 025 due Goal Endocrinology re ferral. Due on due Goal Monofilament Quyen t Exam. Due on due Goal Hemoglobin A1C. Due on due Goal CMP. Due on due Goal GFR. Due on due Goal Foot exam. Due on due Goal Dilated eye exam. Due on Jun due Goal nursing educator. Due on due Goal Vision Aquity Sc reen. Due on due Goal Foot Exam - Comp rehensive. Due on due Goal Lipid panel. Due on 026 due Goal Hepatitis C screening due Goal Td vaccine. Due on due Goal Tobacco screening. Due on due Goal GAD7. Due on due Goal Depression scree agustina. Due on due Goal Tdap. Due on due Goal HIV-1/2 due Goal Pneumococcal vac cine. Due on due Goal ASCVD 10 year risk. Due on due Goal Influenza vaccine. Due on due Goal nursing educator. Due on due Goal Endocrinology re ferral. Due on due Goal Retinal Eye Exam. Due on Jun due Goal Foot Exam - Comp rehensive. Due on due Goal Hep B (). Due on 025 due Goal Lipid panel. Due on 026 due Goal Vision Screen. Due on due Goal Vision Aquity Sc reen. Due on due Goal Hemoglobin A1C. Due on due Goal Monofilament Quyen t Exam. Due on due Goal Dilated eye exam. Due on Jun due Goal Urine microalbumin. Due on due Goal CMP. Due on due Goal Foot exam. Due on due Goal Influenza vaccine. Due on due Goal ASCVD 10 year risk. Due on due Goal GFR. Due on due Goal Td vaccine. Due on due Goal Hepatitis C screening due Goal Depression scree agustina. Due on due Goal HIV-1/2 due Goal Tobacco screening. Due on due Goal Tdap. Due on due Goal GAD7. Due on due Goal Pneumococcal vac cine. Due on due Goal Dental exam. Due on due Goal Mammogram. Due on due Goal Dental exam. Due on due Goal Mammogram. Due on due Goal Pap/HPV testing. Due on due Goal GFR. Due on due Goal Monofilament Quyen t Exam. Due on due Goal CMP. Due on due Goal nursing educator. Due on due Goal Retinal Eye Exam. Due on Nov due Goal Lipid panel. Due on due Goal HIV-1/2 due Goal Tdap. Due on due Goal Colonoscopy. Due on due Goal Eim-Ssibyw-vwdum. Due on Jun due Goal Vision Screen. Due on due Goal Hemoglobin A1C. Due on due Goal Foot Exam - Comp rehensive. Due on due Goal Foot exam. Due on due Goal Vision Aquity Sc reen. Due on due Goal Hep B (1st). Due on due Goal Endocrinology re ferral. Due on due Goal Dilated eye exam. Due on Jun due Goal Urine microalbumin. Due on due Goal Td vaccine. Due on due Goal Depression scree agustina. Due on due Goal GAD7. Due on due Goal Tobacco screening. Due on due Goal Hepatitis C screening due Goal Colorectal Cance r Screening. Due on due Goal ASCVD 10 year risk. Due on A due Goal Pneumococcal vac cine. Due on due Goal Influenza vaccine. Due on due Goal Dental exam. Due on due Goal Mammogram. Due on due Goal Pap/HPV testing. Due on due Goal Dilated eye exam. Due on May due Goal Urine microalbumin. Due on due Goal Vision Aquity Sc reen. Due on due Goal Foot Exam - Comp rehensive. Due on due Goal Hemoglobin A1C. Due on due Goal Endocrinology re ferral. Due on due Goal Pdv-Snmxif-tsgzp. Due on May due Goal HIV-1/2 due Goal GAD7. Due on due Goal Colonoscopy. Due on due Goal Td vaccine. Due on due Goal Depression scree agustina. Due on due Goal Hepatitis C screening due Goal Tobacco screening. Due on due Goal Vision Screen. Due on due Goal Influenza vaccine. Due on due Goal ASCVD 10 year risk. Due on due Goal Pneumococcal vac cine. Due on due Goal Tdap. Due on due Goal Colorectal Cance r Screening. Due on due Goal nursing educator. Due on due Goal Retinal Eye Exam. Due on Nov due Goal Lipid panel. Due on due Goal CMP. Due on due Goal Hep B (1st). Due on due Goal Foot exam. Due on due Goal Monofilament Quyen t Exam. Due on due Goal GFR. Due on due Goal Dilated eye exam. Due on March due Goal Vision Aquity Sc reen. Due on due Goal CMP. Due on due Goal GAD7. Due on due Goal Lipid panel. Due on due Goal Urine microalbumin. Due on due Goal Foot Exam - Comp rehensive. Due on due Goal GFR. Due on due Goal Hep B (1st). Due on due Goal Hemoglobin A1C. Due on due Goal Foot exam. Due on due Goal nursing educator. Due on due Goal HIV-1/2 due Goal Tdap. Due on due Goal Monofilament Quyen t Exam. Due on due Goal Endocrinology re ferral. Due on due Goal Retinal Eye Exam. Due on Nov due Goal Pneumococcal vac cine. Due on due Goal Vision Screen. Due on due Goal Tobacco screening. Due on due Goal Depression scree agustina. Due on due Goal Colorectal Cance r Screening. Due on due Goal Lel-Fumxef-ciamg. Due on March due Goal Hepatitis C screening due Goal Td vaccine. Due on due Goal Colonoscopy. Due on due Goal ASCVD 10 year risk. Due on due Goal Influenza vaccine. Due on due Goal Dental exam. Due on due Goal Mammogram. Due on due Goal Pap/HPV testing. Due on due Goal Dental exam. Due on due Goal Mammogram. Due on due Goal Pap/HPV testing. Due on due Goal nursing educator. Due on due Goal Retinal Eye Exam. Due on Nov due Goal Vision Screen. Due on due Goal Endocrinology re ferral. Due on due Goal Vision Aquity Sc reen. Due on due Goal Hep B (1st). Due on due Goal Foot Exam - Comp rehensive. Due on due Goal Urine microalbumin. Due on due Goal Foot exam. Due on 4 due Goal Dilated eye exam. Due on March due Goal Monofilament Quyen t Exam. Due on due Goal Depression scree agustina. Due on due Goal HIV-1/2 due Goal Hepatitis C screening due Goal Cqs-Bqdoks-ecwpo. Due on March due Goal Tobacco screening. Due on due Goal Colonoscopy. Due on due Goal Td vaccine. Due on due Goal GAD7. Due on due Goal Tdap. Due on due Goal Colorectal Cance r Screening. Due on due Goal Pneumococcal vac cine. Due on due Goal ASCVD 10 year risk. Due on due Goal Influenza vaccine. Due on due Goal Foot exam. Due on 4 due Goal Dental exam. Due on due Goal Endocrinology re ferral. Due on due Goal Mammogram. Due on due Goal Pap/HPV testing. Due on due Goal GAD7. Due on due Goal Colorectal Cance r Screening. Due on due Goal Retinal Eye Exam. Due on Nov due Goal Hemoglobin A1C. Due on due Goal Hep B (). Due on due Goal GFR. Due on due Goal Urine microalbumin. Due on due Goal nursing educator. Due on Id due Goal CMP. Due on due Goal ASCVD 10 year risk. Due on due Goal Lipid panel. Due on due Goal Vision Screen. Due on due Goal Depression scree agustina. Due on due Goal Mzy-Mrqogv-ygftm. Due on March due Goal Tobacco screening. Due on Id due Goal Pneumococcal vac cine. Due on due Goal Dilated eye exam. Due on March due Goal Foot Exam - Comp rehensive. Due on due Goal Monofilament Quyen t Exam. Due on due Goal Vision Aquity Sc reen. Due on due Goal Colonoscopy. Due on due Goal Tdap. Due on due Goal Td vaccine. Due on 25 due Goal Hepatitis C screening due Goal HIV-1/2 due Goal Influenza vaccine. Due on Id due Goal CMP. Due on due Goal Tgo-Hdaale-xjzmi. Due on Nov due Goal Hemoglobin A1C. Due on due Goal Lipid panel. Due on due Goal Podiatry referral. Due on due Goal nursing educator. Due on due Goal Urine microalbumin. Due on due Goal Foot exam. Due on due Goal Dilated eye exam. Due on Nov due Goal Dental exam. Due on due Goal GFR. Due on due Goal Monofilament Quyen t Exam. Due on due Goal Hep B (1st). Due on due Goal ASCVD 10 year risk. Due on due Goal PNEUMOVAX 23. Due on 2022 due Goal Pap/HPV testing. Due on due Goal Hepatitis C screening due Goal Td vaccine. Due on due Goal Tdap. Due on due Goal HIV-1/2 due Goal Depression scree agustina. Due on due Goal PNEUMOVAX 23. Due on 2021 due Goal Evv-Bqtsrv-tqmce. Due on Sep due Goal Td vaccine. Due on 22 due Goal Hepatitis C scre ening. Due on due Goal Lipid panel. Due on due Goal Tdap. Due on due Goal Influenza vaccine. Due on No due Goal HIV-1/2. Due on due Goal Pap/HPV testing. Due on due Goal Depression scree agustina. Due on due Goal Diet education completed Goal HIV-1/2. Due on due Goal Pap/HPV testing. Due on due Goal Zum-Zhvrhw-ahwpw. Due on Sep due Goal Influenza vaccine. Due on No due Goal Hepatitis C scre ening. Due on due Goal Td vaccine. Due on due Goal Depression scree agustina. Due on due Goal Lipid panel. Due on due Goal Tdap. Due on due Goal Diet education completed Goal Tdap. Due on due Goal Hepatitis C scre ening. Due on due Goal Kju-Ogjytn-evrtr. Due on Aug due Goal Lipid panel. Due on due Goal Td vaccine. Due on due Goal Influenza vaccine. Due on due Goal Depression scree agustina. Due on due Goal Pap/HPV testing. Due on due Goal HIV-1/2. Due on due Goal Depression scree agustina. Due on due Goal Hepatitis C scre ening. Due on due Goal Yda-Avkcjq-qeqas. Due on Jul due Goal Lipid panel. Due on due Goal Td vaccine. Due on due Goal Mammogram. Due on due Goal Fob-Eajuvn-awrnm. Due on March due Goal Td vaccine. Due on due Goal HPV High-Risk te sting. Due on due Goal Depression scree agustina. Due on due Goal Lipid panel. Due on due Goal Diet education completed Goal Mammogram. Due on due Goal Fpz-Dgojwc-ffdbr. Due on Dec due Goal Depression scree agustina. Due on due Goal HPV High-Risk te sting. Due on due Goal Lipid panel. Due on due Goal Td vaccine. Due on due Goal Kuw-Rpxuas-jkvqn. Due on Dec due Goal Mammogram. Due on due Goal Td vaccine. Due on due Goal Lipid panel. Due on due Goal HPV High-Risk te sting. Due on due Goal Depression scree agustina. Due on due Goal Tobacco cessation counseling completed Goal Diet education completed Goal Depression dillan berrios. Due on due Goal Sfl-Nedvma-mcgcf. Due on Oct due Goal Mammogram. Due on 0 due Goal Td vaccine. Due on 20 due Goal Pap/HPV testing. Due on due Goal Tdap. Due on due Goal HPV High-Risk te sting. Due on due Goal Lipid panel. Due on 020 due Goal Influenza vaccine. Due on due Goal Diet education completed Referral Ordered: Comprehensive Metabolic Panel ordered Referral Ordered: Lipid Panel ordered Referral Ordered: Colonoscopy ordered Referral Ordered: CBC w/ANC ordered Referral Ordered: PAP W/HPV ordered Referral Ordered: CT ABD & PELVIS W/O CONTRAST ordered Referral Ordered: EYE EXAM W/REMOTE RETINAL IMAGING MGMT ordered Referral Ordered: Referrals: Rn Concurrent Review. Location: [place]. Evaluate and treat ordered Referral Ordered: Electromyography of four extremities ordered Referral Referred To: Cardiovascular [address] [place], [id number] Ordered: Referrals: Cardiology. [facility]ovascular [facility]. Evaluate and treat ordered Patient Education Dental X-Ray: About Thi s Test completed Future Order: Lab Order CBC w/AN C (3002), Ordered on: Ordered Future Order: Lab Order Comprehe nsive Metabolic Panel (1943), Ordered on: Ordered Future Order: Lab Order Lipid Pa karina ([id number]), Ordered on: Ordered History Of Present Illness Encounter Date Complaint History Of Prese nt Illness Comments: Histor y of Present IllnessSarah Curtis is a female patient with a history of cardiomyopathy and diabetes presenting for follow-up. She reports feeling like she has zero energy, which she describes as being more severe than her usual cardiac symptoms. The patient expresses concern about potentially becoming anemic, noting that her lack of energy is significantly impacting her daily life. She agrees to undergo laboratory testing to investigate this issue further.Regarding her diabetes management, her recent A1c result was 8.1, above the target goal of 7. The patient agrees to adjust her diet over the next month to improve glycemic control. She is not currently taking any insulin, mentioning that she has Lantus at home but was unable to obtain it from the pharmacy.The patient reports experiencing dizzy spells in the past, which led to the discontinuation of Farxiga and Entresto by her warp splitter. She denies current use of Ozempic, Entresto, Farxiga, metoprolol, or any insulins. The patient has an upcoming follow-up appointment with cardiology on September 02 for her cardiomyopathy. She also mentions a scheduled colonoscopy and a dermatology appointment for an allergy-related issue.Medical History- Cardiomyopathy- Diabetes mellitus- Anemia (patient-reported)Medications and Supplements- Xarelto 20 mg by mouth once daily- Amiodarone 200 mg by mouth once daily- Atorvastatin 80 mg by mouth once daily- Digoxin 0.125 mg by mouth daily- Lantus - Has at home but unable to obtain from pharmacy- Farxiga - Discontinued due to causing dizzy spells- Entresto - Discontinued due to causing dizzy spells- Ozempic - Discontinued- Metoprolol - DiscontinuedSocial History- Diet: Patient agrees to adjust diet for the next monthReview of SystemsGeneral: Positive for fatigue.Cardiovascular: Positive for dizziness. Diabetes/HTN Pap Patient is a 45 female who presents today for screening Pap smear, she reports has not a Pap smear in over 12 years she has not had any pelvic pain or vaginal discharge or any abnormalities. She has no questions or concerns regarding her reproductive health at this time. Comments: Sarah Pathak, a female patient, presents with difficulty swallowing that began yesterday. She describes a sensation of trying to swallow past something in her esophagus, similar to an episode she experienced about 2 months ago.The patient reports that the current episode started yesterday while eating dinner. She had experienced a near-syncope event right before dinner, laid down, and then got up to try to eat when she noticed the swallowing issue again. The sensation is located under her breastbone. She describes discomfort and pain when attempting to swallow both liquids and solids, with solids causing more pain. Despite the discomfort, she is still able to get some liquid and food down, but it feels stuck there. She denies regurgitation or vomiting of food.The patient recalls a similar incident about 2 months ago when she thought she was having a heart attack. She went to [facility] (presumably a healthcare facility) where they had her drink something that resolved the issue, though she is unsure what the substance was.Of note, the patient reports that her throat problems began after a transesophageal echocardiogram last year. She states that she woke up during the procedure and was fighting the tube. She also mentions a history of gallbladder removal but denies any diagnosis of hiatal hernia.Medical History- Near-syncope event prior to the current visit- Emergency room visit for suspected heart attack, approximately 2 months ago- Esophageal discomfort since transesophageal echocardiogram last yearSurgical History- Transesophageal echocardiogram last year, patient woke up during procedure and fought the tube- Cholecystectomy (gallbladder removal)Social History- Diet: Patient mentions dietary restrictions, specifically that meats have been removed from their dietReview of SystemsHEENT: Positive for dysphagia, sensation of something stuck in throat.Cardiovascular: Positive for near-syncope.Gastrointestinal: Positive for difficulty swallowing liquids and solids, pain with swallowing. Negative for regurgitation, vomiting. Dysphagia Blood work Establish care Patient is a 45- year-old female who presents today to reestablish care here with our clinic. Patient has a very complex past medical history consistent with chronic systolic heart failure related to cardiomyopathy, atrial fibrillation, hyperlipidemia, chronic pulmonary embolisms, mitral valve insufficiency as well as uncontrolled type 2 diabetes. Patient reports she moved to [place], was working down there her insurance covers her for about a year and then they stopped, she reports she has been off of all of her medications except for the amiodarone, Farxiga, digoxin and occasionally the metoprolol, she discontinued her Eliquis Entresto, Humalog, Lantus, spironolactone, furosemide as she was not insured properly to get the medications for reasonable suazo. She reports that last fall she had some mitral valve regurgitation and received a mitral clip but it did not work as they had hoped. She reports that she has been back here in [place] she has been feeling a little bit fatigued but not had any chest pains, show or shortness of breath, she reports that her weight has been stable has not had lower extremity edema. She reports she stopped taking her insulin over 2 years ago Diabetes The problem is i mproving. Patient is compliant with using medication, follow-up, and using education materials. Pertinent negatives include blurred vision, diarrhea, dysesthesias, dyspnea, foot ulcers, nocturia, polydipsia and weight gain. Comments: Lukasz walter presents today for follow-up regarding type 2 diabetes, patient reports that she is doing very well does not have any questions or concerns at this time. She has been doing her Farxiga, Humalog, Lantus and Ozempic as prescribed. She is continue with her Entresto as well. She continues to follow-up regularly with her transplant and cardiac team, A1c today was 6.2%. No hypoglycemic episodes. Insulin check Patient is a 41- year-old female who presents today for insulin checkup, last visit we increased her insulin to 25 units each evening we also started her on mealtime insulin, started on NovoLog 5 to 12 units based on the sliding scale with meals, instructions were given extensively on how to use and when not to use the medication. She is also given sliding scale paperwork and glucose charts and logs and was encouraged to bring them back, patient reports she fell like she was getting a rash to the NovoLog and I also switch her to Humalog shortly after having identified what she would call a side effect. She reports that her a.m. glucose is around 1 40-1 60, she is generally about 140 postprandial 2 hours after eating on the current insulin regimen. She is not had any low sugar episodes. diabetes The problem is s table. Patient is compliant with using medication, follow-up, and using education materials. Associated symptoms include: weight gain. Pertinent negatives include blurred vision, diarrhea, dyspnea, foot ulcers, frequent infections, urinary frequency and polydipsia. Comments: Lukasz walter presents today for follow-up regarding diabetes, patient was seen at [facility] ER last month and was diagnosed with type 2 diabetes after having A1c around 9 as well as LDL at 700 and triglycerides near 6700. Patient presented to me on September 18, we continued her Lantus, had extensive dietary counseling and made sure she was on appropriate medication. She cannot tolerate DAGO or ARB's, she is currently on metoprolol. She is on high-dose atorvastatin at 80 mg. She is continue with 20 units of Lantus in the evening, she brought in a glucose log that shows her pre and postprandial glucoses still around the mid 250s some in the low 300s. She reports that generally speaking she is feeling better than she has in months, she has more energy and is getting more exercise and walking with her daughter. She has been trying to work on her diet but finds it very difficult Follow Up of Hospital Patient is a 42-year-old female who presents today for recent hospital follow-up. Past medical history is consistent with cardiomyopathy, chronic anticoagulation, implantable cardioverter defibrillator, history of pulmonary embolism, and acute bronchitis. Patient presented to the local emergency room on 10 September, she presented with the main concern of hemoptysis, she was treated with antibiotics and steroids, prior to her steroid initiation she was found to be hyperglycemic with a glucose greater than 500 and an A1c around 9, she also had extremely high lipid panel. Her LDL was greater than 700 and her triglycerides were greater than 6700, however she did not have any evidence of pancreatitis or abdominal pain. She was started on 20 units of Lantus 1 time per day and sent home after she had stabilized with doxycycline. She is also started on 80 mg of atorvastatin and 160 mg of fenofibrate for her dyslipidemia.Patient reports that she got home she has been doing well, she denied any chest pains, shortness of breath or difficulty breathing. She has not had any other cases of hemoptysis, headache or confusion. She reports she has been doing 20 units of Lantus each evening, she is been checking her sugars but did not bring the log in today, she reports she just finished her steroid taper yesterday but did note that her numbers have been around 220, she reports today she woke up with a glucose fasting of around 150. She has not had any problems injecting the insulin and feels confident doing it. Foot Pain Comments: Lukasz walter is a 41-year-old female who presents today for follow-up and evaluation regarding occasional foot redness, patient was diagnosed with a cellulitis in the right lower extremity, she was given doxycycline for 14 days and it resolved, she feels like it might come back, she has been difficult for her to get in and she does not want to go to the emergency room in the future. She is wonder if she get a prescription of an antibiotic to take in the case that it does appear again. Otherwise she is doing well with her congestive heart failure and continues to follow-up with the transplant team and her warp splitter down at [facility]. Currently at this time is not have any redness, pain or abnormalities on her right foot. neuropathy (comments) Patient re ports she gets some tingling and some numbness in the ends of her fingers and her toes, this been present now for a few months if not longer, patient is not sure if it is related to any of her medications that she is currently taking, she reports that the heart failure team done at the [facility] suggested that she come into the clinic to have it worked up. 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 hospital f/u Patient is a 39- year-old female who presents today for hospital follow-up as well as evaluation for potential neuropathy. Patient is doing significantly better than she was last time I saw her a few months back, she currently is involved with the [facility] transplant team as well as heart failure team. Her medications been managed well, she is no longer using supplemental oxygen or using a walker to get around. Quick recap on her recent ER visit, she was driving home from the [facility] after a visit with the transplant team and she developed some ventricular tachycardia, she pulled over and the rest stop and spoke with the [employer] who called [employer], she was life flighted to [facility] in [place], she was evaluated there was found to have normal EKG, her device was interrogated and showed a short run of V. tach but the defibrillator did not activate. Cardiac enzymes were normal, other blood work was normal, patient was discharged home she reports since her discharge she has been doing well. Has been continuing her medications as before and trying to take care of the home. She reports that she is scheduled with the transplant team again on April 28 where she is going to have a complete evaluation to determine if she is a candidate for a heart transplant. She has no questions or concerns regarding this at this time and reports he is back to her normal state of health and is planning on continue all of her medications as previously indicated neuropathy Onset was gradua l. Severity level is mild. Gait is characterized as normal. Symptom is aggravated by rest. Associated symptoms include nocturnal paresthesias and paresthesia. Pertinent negatives include agitation, ataxia, bladder incontinence, bowel dysfunction, chorea, confusion, dysphagia, falling, fever, headache, restlessness and visual disturbances. sleep apnea The symptoms are mild. Relevant history: a BMI of 33.69, atrial fibrillation, congestive heart failure, deviated septum, hypertension and morbid obesity. The apnea is not worsened by sleeping supine or stress. The patient is also experiencing difficulty concentrating, difficulty maintaining sleep, gasping during sleep, non-restorative sleep and witnessed apnea or irregular nighttime breathing. The patient denies awakening with choking, awakening with shortness of breath, difficulty initiating sleep, nasal congestion or wheezing. Sleep study referral Patient pre sents today for follow-up, she needs a referral to get tested for sleep apnea. She reports her to the emergency room a couple of times since her last visit. She was diagnosed with heart failure exacerbation, she was started on oxygen, she is been wearing supplemental oxygen 24 hours/day, she reports her oxygen levels dipped with exertion but come back above 90-93 at rest even with the oxygen. She has a previous history of sleep apnea but was never given a CPAP because she did not follow-up with her visits. She reports she did get into see cardiology on 02 January, the next visit is on the at 945, while she was there they also interrogated her pacemaker which she reports were normal. I do not have those notes but I will try and get them. She reports she continues to smoke cigarettes daily, her ER visits she had some episodes of blacking out may have been related to her medications Cardiology Referral Patient is a 41-year-old female who presents today seeking cardiology referral. A quick summary of patient's known health problems that I am aware of. She establish care with me back in October 2020 and I have not seen her since that time. She has a history of cardiomyopathy that started about 8 years ago, she subsequently developed tachycardia with long QT syndrome and has a defibrillator placed about 5 years ago. She was previously taking amiodarone for her A. fib but reports she was taken off of it in the last few months. She has a long smoking history and continues to smoke cigarettes daily, currently not using any type of medication to help her quit. She reports since her last visit in 2019 she has moved around quite a bit but most recently was living in [facility], in August 2021 she was driving in the car from [place] when she had a large pulmonary embolism, she became acutely short of breath and passed out and was treated inpatient for about 1 week, I do not have these notes and I am not sure based on her report the hospital she was in. She reports the physicians at that hospital told her that her pacemaker shocked her 3 times. She was stabilized, discharged on Eliquis twice daily and was encouraged to quit smoking. She reports since she was discharged in [facility] she had trouble getting in to see warp splitter, she was told that her ejection fraction on her most recent echo was 12% but still could not find a warp splitter who would take care of her. She reports since that hospitalization in August for the pulmonary embolism she is again struggling with dizziness, she reports she gets acutely dizzy at different times regardless of position or head movement. She reports seeking medical care for this in [facility] where they had done CT scans and other neuroimaging (I do not have any of these records for review) and they told her that everything was normal.Ultimately, patient moved back down to [place] to live with her mother Shireen as she was having difficulty finding a warp splitter in [facility] as well as to seek further evaluation regarding her dizziness Establish care Patient is a 40- year-old female presents today to establish care, patient is patient states she has a history of post cardiomyopathy, tachycardia long QT syndrome she states he has a pacemaker with a defibrillator as she also has A. fib for which she takes amiodarone. She states she had a pulmonary embolism in April of this year. She states she is been following up with Dr. Cordero the warp splitter in [place], he has seen her and is managing all of her medications. She continues to smoke about 15 to 20 cigarettes/day, use Chantix in the past and liked the way it made her feel, she does not like the nicotine replacement, either, is never done patches before. Other than that she states she is doing well and just needs to establish care in the case that she needs something in the future Functional Status Date Description Comments No Information Instructions Date Instruction Additional Infor jem Sarah Curtis is a female patient with a history of cardiomyopathy presenting for routine follow-up and medication management.Diabetes Mellitus Type 2Assessment: Patient's most recent A1c is 8.1%, which is above the goal of 7%. Previously on Ozempic (semaglutide) and Farxiga, but these medications were discontinued. Patient reports having Lantus at home but was unable to obtain it from the pharmacy. No current insulin regimen.Plan:- Restart Ozempic (semaglutide): 0.25 mg subcutaneously weekly for 4 weeks, then increase to 0.5 mg subcutaneously weekly for 2 weeks- Patient to adjust diet for the next month- Follow up in 3 months- Patient to request Ozempic refill when supply runs lowCardiomyopathyAssessment: Patient has a history of cardiomyopathy. Previously on Entresto (sacubitril + valsartan) and Farxiga, but these were discontinued by cardiology due to causing dizzy spells. Currently on amiodarone, atorvastatin, digoxin, and Xarelto for cardiac management.Plan:- Continue current cardiac medications: amiodarone 200 mg PO daily, atorvastatin 80 mg PO daily, digoxin 0.125 mg PO daily, Xarelto 20 mg PO daily- Follow up with cardiology on [place]pected AnemiaAssessment: Patient reports feeling like she has zero energy, more than what she attributes to her cardiac issues. This raises suspicion for possible anemia.Plan:- Patient to return tomorrow for fasting blood work- Order basic labsPreventive CareAssessment: Patient is due for routine screenings and follow-ups.Plan:- Colonoscopy has been ordered- Pap smear results pending, to be communicated by middle of next week- Follow up with dermatology for allergy- Diabetic neuropathy screening performed during visit Related to DM type 2 with diabetic dyslipidemia Pap with HPV has bee n collected will send off to the lab we will let you know follow-up screening guidelines Related to Screening for cervical cancer Sarah Curtis, fe male, presents with dysphagia and odynophagia for 2 months, with recent exacerbation yesterday. History of cholecystectomy and transesophageal echocardiogram last year.Dysphagia and OdynophagiaAssessment: Patient reports difficulty swallowing and pain with swallowing for both liquids and solids, with sensation of food getting stuck in the esophagus. Symptoms began after a transesophageal echocardiogram last year, during which the patient woke up and fought the tube. Recent exacerbation occurred yesterday after a near-syncope event. Differential diagnoses include mechanical obstruction (e.g., esophageal stricture, hiatal hernia) or neuromuscular dysfunction affecting swallowing mechanism. No regurgitation or vomiting reported. Previous episode 2 months ago resolved with an unspecified drink at the hospital.Plan:- Order CT scan of abdomen to evaluate for potential causes (e.g., hiatal hernia, stricture)- Advise patient to: - Chew food thoroughly - Cut up meats into small pieces or avoid meats temporarily - Seek emergency care if food becomes completely lodged (unable to pass or regurgitate)- Follow up after CT scan results for further management Related to Other dysphagia Lifestyle education regarding diet (procedure) Related to Body mass index (BMI) 50.0-59.9, adult Prescribed activity/ exercise education (procedure) Related to Body mass index (BMI) 50.0-59.9, adult 1. Very complex 45-y ear-old patient. She is scheduled on May 14, 1 month from now with the [facility] cardiology team where she had established previously. Discussed with patient that is absolutely imperative that she keep that visit, I also reminded patient that they will be taking over her cardiac medications and the moving forward. I went had and prescribed her 6-week supply of her amiodarone, Eliquis, Farxiga, digoxin, metoprolol, Entresto. These were all sent to [facility] pharmacy.2. In addition routine lab work will be collected, I will go ahead and check her cholesterol levels as well as her glucose levels to determine if she needs further diabetic care which is likely going to be the case.3. Reviewed ER precautions regarding shortness of breath, difficulty breathing, chest pains, palpitations she was very agreeable to that and notes that she is very aware and has had many ER visits regarding her chronic illness and so she knows when to seek help.4. I will see her back here in a few weeks for recheck she was very agreeable to that plan. Related to Cardiomyopathy, unspecified type Prescribed activity/ exercise education (procedure) Related to Body mass index (BMI) 35.0-35.9, adult Lifestyle education regarding diet (procedure) Related to Body mass index (BMI) 35.0-35.9, adult 1. A1c is decreased down to 6.2, congratulated her on this improvement. Vital signs look good, diabetic foot exam completed today and was within normal limits. Continue all meds as previously indicated, diabetic retinal exam completed will notify those results have returned. Good diabetic foot care discussed. Overall, she is stable and doing well I do not need to make any changes to her treatment regimen at this time. Follow-up in 3 months. Related to Type 2 diabetes mellitus with other specified complication . Based on patient's glucose logs and current insulin administration she is doing well, continue the Lantus 25 units and the Humalog on sliding scale 5 to 12 units with meals. Recommended to 60/40/40 carbohydrate intake scale to help better control glucose levels. Information, brochures and literature were given to patient again to help better understand diabetes and the importance of appropriate management.2. Recommended healthy well-balanced diet and daily physical activity as allowed and recommended by her cardiology team. I will see her back in 2 months for recheck or sooner if needed. She is very agreeable to that plan will follow as directed Related to DM type 2 with diabetic dyslipidemia Exercise education Related to Ag dy mass index (BMI) 35.0-35.9, adult Diet education Related to Body mass index (BMI) 35.0-35.9, adult 1. A1c repeated toda y in clinic shows a level of 9.3%, will increase Lantus to 25 units each evening, will start patient on mealtime insulin, NovoLog 5 to 12 units based on sliding scale with meals. Omit if you do not eat.2. Patient was given a sliding scale paperwork which clearly lays out how much insulin she should use. Patient also was given glucose logs and encouraged to fill them out. She was given refills on her strips. Patient cannot tolerate DAGO or ARB's, she is already on high-dose statin we will be rechecking her lipid panel here in the next couple of months3. She will continue Farxiga that she was originally on for heart failure.4. Patient was given diabetic materials referred to [email or web address] so that she may learn more about diabetes, dietary and lifestyle interventions. I will see her back here in 10 to 14 days for recheck, she will bring her glucose log and at that time. Related to DM type 2 with diabetic dyslipidemia Diet education Related to Body mass index (BMI) 35.0-35.9, adult Exercise education Related to Ag dy mass index (BMI) 35.0-35.9, adult 1. New onset hypergl ycemia found recently in the hospital, she will continue with the Lantus 20 units 1 time per day. Patient is already on Farxiga for its heart indications due to her cardiomyopathy. Blood pressure is already low, she cannot tolerate an DAGO or an ARB. She is on max dose of atorvastatin at 80 mg 1 time per day as well as 160 mg of fenofibrate. She is tolerating these medications well without any side effects.2. Referral was placed to see a dietitian at the local hospital to help with dietary choices to improve lipidemia and glycemia.3. I recommended a healthy well-balanced diet, daily physical activity is much as tolerated but must be cautious due to her decreased ejection fraction.4. She is going to continue her other medications as previously indicated has close follow-up with her [facility] cardiology team. If it anytime you develop chest pains, shortness of breath or difficulty breathing you are to go to the emergency room. She was agreeable to that plan.5. Hemoptysis has resolved and she is back on her Xarelto as previously prescribed and overall doing well.6. Patient will return to clinic here in 2 weeks with updated glucose logs, I suspect as she has now tapered off the steroids her glucoses will respond more appropriately to the Lantus, we may need to make adjustments in the future. Hypoglycemic symptoms and treatment discussed. When she returns to clinic next week we will get her set up for diabetic eye exam, diabetic foot exam and establish baseline labs here in our clinic. Related to DM type 2 with diabetic dyslipidemia 1. Physical exam nor mal today, no evidence of recurrence of cellulitis. She has had difficulty coming into the clinic as such, I prescribed with a emergency prescription of doxycycline to take if the redness and pain comes back in her foot. She is very agreeable to that plan will follow as directed. I will see her back here in a few weeks for her regular checkups or sooner if needed. She was agreeable to that plan Related to History of cellulitis 1. Continue medicati ons as before. Be sure to follow-up with your transplant team and heart failure clinic. She was agreeable. Related to Cardiomyopathy, unspecified type 1. We will send kayla ent for bilateral EMGs of her upper and lower extremities. These will be sent to [facility] in [place]. Related to Numbness and tingling in both hands Exercise education Related to Ag dy mass index (BMI) 32.0-32.9, adult Diet education Related to Body mass index (BMI) 32.0-32.9, adult 1. I will place an o rder for patient be evaluated by the local sleep lab. That order has been faxed today that should be contacting her shortly.2. I recommend she continue the oxygen as previously indicated by ER physician. I will write a prescription for portable oxygen concentrator which will be easier for her to manage compared to a bottle.3. Encourage patient continue to take the Eliquis, Entresto, levothyroxine as previously prescribed. She can continue with the Turow some mild 20-40 mg twice daily to help with edema associated with her heart failure.4. Pulse was elevated today, encouraged her to take 1/2 tablet of her 25 mg of metoprolol twice daily to help with rate control due to her A. fib.5. Discussed with patient when to return to the ER for chest pain, shortness of breath or difficulty breathing. Stressed with patient the importance of following up regularly with cardiology. She and her mother who is here with her today were very agreeable above-stated plan will follow as directed. Related to Suspected sleep apnea hostpail bed. Related to Chron ic pulmonary embolism without acute cor pulmonale, unspecified pulmonary embolism type 1. Currently has pacemaker in dago. Related to Long QT syndrome 1. Currently rate co ntrolled, she appeared to be in sinus rhythm today in clinic. Continue metoprolol Related to Chronic atrial fibrillation 1. I discussed with patient and her mother seeking further imaging here in [place] and trying to get records from her previous hospitalizations and work-up. They report that they will call and get that information sent down to us here.2. Ultimately, the biggest concern is getting a referral to see a warp splitter. That referral has been placed.3. Patient was also suffering from polypharmacy as she was on multiple diuretics, antiemetics and other medications that were doubled up or unnecessary. Were able to clean her list up today.4. She is to continue the Eliquis 5 mg p.o. twice daily, continue Entresto, metoprolol and torsemide as previously prescribed. She is to continue the levothyroxine, meclizine and promethazine. The meclizine and the promethazine can be used as needed for associated dizziness, it is uncertain the exact etiology to her dizziness and she was going to discuss this further with her warp splitter as she thinks it may be heart related.5. I would have patient come back to clinic here in about 3 weeks for recheck. Encouraged her with much bigger to quit smoking as soon as possible.6. ER precautions were given regarding worsening shortness of breath, chest pains or difficulty breathing information given regarding when to seek emergent care Related to Cardiomyopathy, unspecified type Diet education Related to Body mass index (BMI) 34.0-34.9, adult Exercise education Related to Ag dy mass index (BMI) 34.0-34.9, adult 1. Discussed with sara branham that she needs to quit smoking, she was agreeable to try nicotine patches, will start on the 7 mg per 24 hours, will have her check back with me in a couple of months for follow-up or sooner if needed. She was agreeable the above-stated plan will follow as directed. Related to Smoking addiction . Managed by Dr. Kodi leger, has pacemaker and defibrillator placed Related to Long QT syndrome 1. Patient is under the care of Dr. Cordero cardiology in [place]. He has been managing her atorvastatin, amiodarone bumetanide Eliquis Entresto and metoprolol. She has routine and regular follow-up there. She does not need a refill on any of her medications at this time. Blood pressure is stable, cardiac auscultation was normal as far as I could hear today. Related to Chronic atrial fibrillation Diet education Related to Body mass index (BMI) 34.0-34.9, adult Exercise education Related to Ag dy mass index (BMI) 34.0-34.9, adult Assessments Type Assessment Date No Information
--- OUTSIDE RECORDS SUMMARY | 2025-11-19 19:43 | XMS_ITS | Encounter Summary ---
Author Organization [facility] Address 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 She inquires if pt can be seen sooner than 07/16/24 for her consult. Caller is faxing the discharge summary to our office for review. Fax number provided [phone]. Cardiology Parcel Wrapper: ERIC Russo * Telephone Encounter - Madison Jacob - 05/09/2024 11:04 AM CDT Called and got appt scheduled sent a message to EP nurses if she can get a sooner appt. * Telephone Encounter - Tigist Thayer - 05/09/2024 8:14 AM CDT [facility] Call Center Communications Consult (Provider) MESSAGE Calling to schedule referral Cardiology Parcel Wrapper: Tigist documented in this encounter Plan of Treatment Not on file documented as of this encounter Visit Diagnoses Not on filedocumented in this encounter Additional Health Concerns Infection Onset Date Last Indicated Resolved Time R/O Respiratory 07/25/2024 07/25/2024 07/25/2024 1 0:12 PM CDT R/O COVID-19 02/20/2025 02/20/2025 02/20/2025 8:50 PM CDT documented as of this encounter
--- OUTSIDE RECORDS SUMMARY | 2025-11-19 19:43 | XMS_ITS | Clinical Summary ---
Author Organization [facility] Martina Ny unty Address [address] [place] [address] Phone Care Team Providers Care Mass Communications Instructor Name Role Phone Unavailable Primary Care Provider [...] VACCINES (No Doses Required) Completed Insurance MEDICAID [place] RX INFOCROSSING Medicaid Advance Directives For more information, please contact: [phone] * Full Code (Latest Code Status on File) Date Activated Date Inactivated Comments 05/21/2020 1:15 PM 05/24/2020 7:05 PM
--- OUTSIDE RECORDS SUMMARY | 2025-11-19 19:43 | XMS_ITS | Encounter Summary ---
Author Organization [facility] Address 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
--- OUTSIDE RECORDS SUMMARY | 2025-11-19 19:44 | XMS_ITS | Clinical Summary ---
Author Organization [facility] Address [address] [place]: Epic Prelude ADT NIKOLAS SHRESTHA [address] Care Team Providers Care Commissioner Of Internal Revenue Name Role Phone Unavailable Primary Care Provider [...] Pork Derived (Porcine) Other (See Comments) 09/05/2024 [facility] - NO PORK PRODUCTS Spironolactone Shortness of [...] check your blood sugars. 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 Gender Identity Female 08/21/2024 7:07 PM CDT [...] of 3 - 19+ 3-dose series) 1998 Preventative Visit-Managed Medicaid 1998 HPV/Cotest (21-29) 2000 CERVICAL CANCER SCREENING [...] Required) Completed Medical Devices Implanted Type Area Special Services Coordinator Device Identifier Shelf Expiration Date Model / Serial / Lot Mitraclip G4 Dlvry Sys Xtw No Chrg [id number] - [id number] Implanted:Qty : 1 on 09/08/2024 by Jerald Rios MD at [facility] Cardiovascular Device N/A: Heart [employer] [id number] 04/06/2025 [id number] / / [id number] Closure Perclose Prostyle Sut Mediate [id number] - [id number] Implanted:Qty : 1 on 09/08/2024 by Jerald Rios MD at [facility] Closure Device N/A: Groin [employer] [id number] 05/25/2026 [id number] / / [id number] Procedures Procedure Name Priority Date/Time Associated Diagnosis Comments HEMOGLOBIN A1C Routine 07/25/2024 11:36 PM CDT from Last 3 Months or Most Recently Relevant to Health Maintenance Results * (ABNORMAL) HEMOGLOBIN A1C (07/25/2024 11:36 PM CDT) HEMOGLOBIN A1C 7.2(H) <=5.6 % 07/30/2024 9:52 AM CDT [facility] [place] [facility] EST. AVG GLUCOSE, A1C 160 mg/dL 07/30/2024 9:52 AM CDT [facility] Blood Venipuncture / Unknown 07/25/2024 11:36 PM CDT 07/25/2024 11:46 PM CDT Narrative [facility] [place] [facility] - 07/30/2024 9:52 AM CDT HGB A1C INTERPRETATION NORMAL: <5.7% PRE-DIABETES: 5.7 - 6.4% DIABETES: 6.5% OR GREATER us Edilberto Pascal DO CHEMISTRY ORDERABLES Final R esult [facility] CLIA # [id number] [facility] [address] from Last 3 Months or Most Recently Relevant to Health Maintenance Insurance [facility] PLAN [facility] [id number] * Guarantor: VENKATESH ANNA Account Type Relation to Patient Date of Phone Billing Address Personal/Family [address] [place] [address] RX INFOCROSSING Medicaid Advance Directives For more information, please contact: [phone] * Full Code (Latest Code Status on [...]
--- NOTE | 2025-11-19 19:50 | ECG_ITS ---
[facility]: 2025-[facility]19 Pat Name: Sarah Curtis Department: Room: Gender: Female Health Sciences Manager: : 1980 Requested By: Estiven Burnham Order Number: [id number] Rosa Maria MD: JOSE M BLANCO Measurements Intervals [place] Rate: 94 P: 85 NE: 182 QRS: 47 QRSD: 118 T: 75 QT: 390 QTc: 490 Interpretive Statements SINUS RHYTHM MODERATE INTRAVENTRICULAR CONDUCTION DELAY [110+ ms QRS DURATION] NONSPECIFIC T-WAVE ABNORMALITY Compared to ECG 11/12/2025 13:49:01 Intraventricular conduction delay now present T-wave abnormality now present Sinus tachycardia no longer present Short NE interval no longer present Ventricular preexcitation no longer present Electronically Signed On 11-22-2025 23:08:57 FLITCH HANGER by JOSE M BLANCO [email or web address]
[2025-11-19 19:53] VITALS: BP 123/68; PULSE 94; RESP 22; TEMP 36.4; O2SAT 99; BMI 33.4
== END 2025-11-19 20:37 | disposition left against medical advice (07) ==
PROVIDERS: Emergency Provider Physician Assistant
DX: Z53.21 Procedure and treatment not carried out due to patient leaving prior to being seen by health care provider (principal); I45.89 Other specified conduction disorders; R94.31 Abnormal electrocardiogram [ECG] [EKG]
CPT/HCPCS: 93005; 99285